=== PATIENT | female | born 1950 | race Caucasian/White ===

== ENCOUNTER 2023-01-17 14:56 | Emergency (ER) | payer MEDICARE, SELFPAY ==
[2023-01-17 15:06] VITALS: BP 165/105; PULSE 87; RESP 18; TEMP 37.2; O2SAT 94; BMI 23.2
--- NOTE | 2023-01-17 15:35 | ED_ITS ---
HPI - General Adult General Chief complaint: Hypertension Stated complaint: high bp, stroke on sunday Time Seen by Provider: 01/17/23 15:13 History of Present Illness HPI narrative: Patient is a 69 year white female was just released from [place] ischemic stroke at [facility] several days ago. She was noted to have quite a bit elevated blood pressure, she was noted today to have elevated blood pressure by the nurse that is doing home care for her. Appropriately she was concerned and sent her to the ER. The patient has had no symptoms in fact her left arm is improving markedly as is her facial weakness she had a little bit of left leg infected but mostly with her hand and arm and she is able to move her hand fairly well. She quit smoking 15 years ago has they have doubled her cholesterol medication, and she did have elevated blood pressure during her hospital stay. She is having no symptoms at present and her stroke symptoms were resolving. She does have a home blood pressure monitor Related Data Home Medications Medication Instructions Recorded Confirmed atorvastatin 40 mg tablet 40 mg PO DAILY 01/17/23 01/17/23 Allergies Allergy/AdvReac Type Severity Reaction Status Date / Time No Known Drug Allergies Allergy Verified 01/17/23 15:06 Review of Systems Status of ROS: Reports: 6 or more systems reviewed and unremarkable except as noted in History and below PFSH PFSH Social History Smoking Status: Unknown if ever smoked Exam Narrative: Exam Narrative: Objective: Blood pressure 165/105. The patient reports she has had her blood pressure monitor checked at home, she tends to have some white coat hypertension. Her blood pressures were similar at home with the nurses today. She does report yesterday however her own blood pressure monitor was 110 systolic. HEENT is unremarkable other than just slight left-sided facial weakness Left upper extremity shows some mild contracture of the hand but it is it opens pretty fully, much better than it was, she has got some ecchymosis from an IV o elaine the dorsum of the hand. She has good lower extremity strength and range of motion. Pulses regular Patient did have an implantable youth nutritional monitor placed to check for transient arrhythmia, she has been on aspirin and atorvastatin Const: Vital Signs, click to edit/add: Vital Signs - 24 hr 01/17/23 15:06 Temperature 98.9 F Pulse Rate [Pulse Oximeter] 87 Respiratory Rate 18 Blood Pressure [Le ft Upper Arm] 165/105 H Pulse Oximetry 94 Oxygen Delivery Me thod Room Air Course Vital Signs Vital signs: Initial Vital Signs Temperature 98.9 F 01/17/23 15:06 Temperature Source Temporal Artery Scan 01/17/23 15:06 Pulse Rate 87 01/17/23 15:06 Respiratory Rate 18 01/17/23 15:06 Blood Pressure 165/105 H 01/17/23 15:06 Blood Pressure Mean 125 H 01/17/23 15:06 Pulse Oximetry 94 01/17/23 15:06 Oxygen Delivery Method Room Air 01/17/23 15:06 Vital Signs Temperature 98.9 F 01/17/23 15:06 Pulse Rate 87 01/17/23 15:06 Respiratory Rate 18 01/17/23 15:06 Blood Pressure 165/105 H 01/17/23 15:06 Pulse Oximetry 94 01/17/23 15:06 Oxygen Delivery Method Room Air 01/17/23 15:06 Temperature 98.9 F 01/17/23 15:06 Pulse Rate 87 01/17/23 15:06 Respiratory Rate 18 01/17/23 15:06 Blood Pressure 165/105 H 01/17/23 15:06 Pulse Oximetry 94 01/17/23 15:06 Oxygen Delivery Method Room Air 01/17/23 15:06 Medical Decision Making MDM Narrative Medical decision making narrative: Patient is a 69-year-old female presents after an ischemic stroke several days, given the proximity of the stroke I would be careful not to lower her blood pressure too much I think observing it and monitoring over the next couple of days is appropriate, I think also she can continue to monitor home and then follow up with her doctor in the next 2-3 days for reassessment and discussion of what her blood pressure goal should be. At this point I do not think lowering a tube much post stroke would be helpful. She can continue her risk factor management. Would recommend continued twice a day blood pressure monitoring and then see her doctor in 2-3 days. Return if at any time her blood pressure gets systolic over 200 or she has any symptoms. Discharge Plan Discharge Clinical Impression: Ischemic cerebrovascular accident (CVA) Patient Disposition: Home w/ Parent or Adult Condition: Stable Additional Instructions: Continue to monitor blood pressure 2 times a day, follow up with regular doctor in 2-3 days. Discuss ongoing blood pressure goal. Continue home medications, return to ED problems or concerns or if systolic blood pressure persistently above 200. Activity Level: Light activity Discharge Diet: Low Fat/Low Cholesterol Prescriptions: No Action atorvastatin 40 mg tablet 40 mg PO DAILY Stand Alone Forms: [employer] Info Instructions
== END 2023-01-17 15:47 | disposition home or self-care (01) ==
PROVIDERS: Emergency Provider Family Medicine; PCP Neurological Surgery
DX: I10 Essential (primary) hypertension (principal); Z86.73 Personal history of transient ischemic attack (TIA), and cerebral infarction without residual deficits
CPT/HCPCS: 99283

== ENCOUNTER 2023-02-23 15:23 | Emergency (ER) | payer MEDICARE, SELFPAY ==
[2023-02-23 15:34] VITALS: BP 198/114; PULSE 81; RESP 18; TEMP 36.6; O2SAT 90; BMI 25.7
--- NOTE | 2023-02-23 16:13 | ED_ITS ---
History of Present Illness General Date Seen: 02/23/23 Chief Complaint: Epistaxis/Nosebleed Stated Complaint: Nose Bleed Time Seen by Provider: 02/23/23 15:42 Source: patient, family and RN notes reviewed Mode of arrival: ambulatory Limitations: no limitations History of Present Illness HPI Narrative: Patient was presenting to the ER accompanied by her daughter with epistasis. The daughter came out of the room as I was in the doctor's office yelling that somebody need to get in there immediately. Please see my clinical course below. Patient believes she has bleeding from the left side. It started today again. On father's Day in February she was in [facility] and states they had to cauterize it, they put a packing that eventually cauterized at per the daughter's report. She was back at her doctor's office today for visit, her hemoglobin was low from all the bleeding reportedly. She did have a stroke right before mother's Day and has been placed on an 81 mg aspirin. She is on no blood thinners. No trauma. Her blood pressure was high on arrival, her daughter states that she has labile blood pressures. She has not been started on blood pressure meds per daughter as it is labile, has significant white coat hypertension. Location: Yes left naris Duration: Yes constant Pertinent past history: Yes history of previous nose bleed Context: Yes history of previous nose bleed and Yes aspirin use Treatment prior to arrival: Yes nose pinching and Yes head leaning forward Related Data Home Medications Medication Instructions Recorded Confirmed atorvastatin 40 mg tablet 40 mg PO DAILY 01/17/23 02/23/23 albuterol sulfate 90 mcg/actuation inhalation 02/23/23 aerosol inhaler aspirin 81 mg tablet,delayed 81 mg PO DAILY 02/23/23 02/23/23 release (Adult Low Dose Aspirin) famotidine 20 mg tablet 20 mg PO Q12H 02/23/23 02/23/23 fluticasone fur. 100 mcg-umeclid 1 inh inhalation DAILY 02/23/23 02/23/23 62.5 mcg-vilant 25 mcg inhalat.powder (Trelegy Ellipta) gabapentin 600 mg tablet 600 mg PO 3XD 02/23/23 02/23/23 hydrocodone 5 mg-acetaminophen 325 1 tab PO DAILY PRN 02/23/23 02/23/23 mg tablet trazodone 50 mg tablet 50 mg PO QPM 02/23/23 02/23/23 Allergies Allergy/AdvReac Type Severity Reaction Status Date / Time No Known Drug Allergies Allergy Verified 01/17/23 15:06 Review of Systems Narrative: As per HPI PFSH [facility] Social History Smoking Status: Unknown if ever smoked Exam Const: Vital Signs, click to edit/add: Vital Signs - 24 hr 02/23/23 15:34 Temperature 97.9 F Pulse Rate [Pulse Oximeter] 81 Respiratory Rate 18 Blood Pressure [Le ft Upper Arm] 198/114 H Pulse Oximetry 90 Oxygen Delivery Me thod Room Air Bleeding left nares. Please see commentary in the clinical course. Documenting provider has reviewed patient's vital signs: yes Course Course Hospital Course: Came to patient's room immediately 1 daughter came out was yelling. Patient had a nose clip on, was attempting to cough up clot and I think was having difficulty breathing with that. Once [place] into the room I stayed with the patient and working with her and attempt to stop the nose bleed. When I removed the nasal clamp, could see active bleeding coming more posterior from the left side, is not on the anterior septum. Was flowing further back, could not see a definite site that I would be able to reach anyway. Placed a medium rhino rocket in the left side, quickly filled with blood and shortly after that started dripping and flowing around this. It was more than just drippage from a saturated it packing. She was continuing to cough up some clots or spit up clots at that point. The bleeding when it went into her mouth made her panic. I was working with her to try to settle her down and reassure her. I tried some oxymetazoline spray and then a Merocel packing. Same thing happened where she quickly started bleeding through this. I attempted to do the 7.5 cm rapid rhino with anterior posterior chambers and could not feed this into her nasal cavity. It would absolutely not go far enough back. Then took a 5.5 cm rapid rhino and placed in left side, feel the chamber with just about 4 mL which is what she would tolerate. Called our ENT but he is unavailable to come for cauterization of this, requested transfer. Daughter later came out stating she was bleeding across the other in naris now on the right side. Went in in indeed she was trickling blood out the right side. Placed a 5 not other 5.5 cm rapid rhino on the right side, threaded it as far back as I could. Was only able to place about 3 mL in before she was intolerant. She had some mild dripping from the left side but certainly slowed the bleeding down. They were requesting transfer to [facility]. Spoke with Dr. Hook at [facility] in the ER. The certainly are busy but he does agree to accept the patient in transfer. I called the 1 call at 4:12 p.m., Dr. Hook promptly called back at 4:22 p.m. I am having nursing staff place an IV, will get a basic metabolic panel and CBC. I do not feel comfortable giving her tranexamic acid given that she has just had a recent stroke and the fact that I do have some control of hemostasis with the bilateral packing in. Note the entirety of patient's time in the ED [place] was either in attendance in her room, contacting specialist. The 1 time I sat down to contact [facility] for transfer, daughter was requesting assistance back in there. Note there was going to be a delay in ambulance by about 30-45 minutes due to other patient transfers, daughter was unwilling to wait, did request to take her mom by private vehicle. Requested that she wait for patient's safety purposes and possible active bleeding that could ensue again. They signed refusal of transport, against medical advice. I am 100% sure that this daughter will proceed to [facility] but do feel that ambulance transfer would have been the safest route even with delay. Vital Signs Vital signs: Initial Vital Signs Temperature 97.9 F 02/23/23 15:34 Temperature Source Temporal Artery Scan 02/23/23 15:34 Pulse Rate 81 02/23/23 15:34 Respiratory Rate 18 02/23/23 15:34 Blood Pressure 198/114 H 02/23/23 15:34 Blood Pressure Mean 142 H 02/23/23 15:34 Pulse Oximetry 90 02/23/23 15:34 Oxygen Delivery Method Room Air 02/23/23 15:34 Vital Signs Temperature 97.9 F 02/23/23 15:34 Pulse Rate 81 02/23/23 15:34 Respiratory Rate 18 02/23/23 15:34 Blood Pressure 198/114 H 02/23/23 15:34 Pulse Oximetry 90 02/23/23 15:34 Oxygen Delivery Method Room Air 02/23/23 15:34 Temperature 97.9 F 02/23/23 15:34 Pulse Rate 81 02/23/23 15:34 Respiratory Rate 18 02/23/23 15:34 Blood Pressure 198/114 H 02/23/23 15:34 Pulse Oximetry 90 02/23/23 15:34 Oxygen Delivery Method Room Air 02/23/23 15:34 MDM - Epistaxis Lab Data Attestation: I reviewed the patient's lab results. Lab results narrative: No anemia noted here but do not have comparison values of recent hemoglobins for her. Labs: Lab Results 02/23/23 Range/Units 16:15 WBC 5.38 (4.50-11.00) K/uL RBC 4.51 (4.00-5.20) m/uL Hgb 13.1 (12.0-16.0) gm/dL Hct 41.4 (33.0-51.0) % MCV 92 (80-100) fL MCH 29 (26-34) pg MCHC 32 (32-36) gm/dL RDW Coeff of Sameer 13.5 (11.5-15.5) % Plt Count 344 (140-440) K/uL Neut % (Auto) 69.9 (42.0-72.0) % Lymph % (Auto) 22.3 (20-44) % Bryan % (Auto) 5.4 (0.0-11.0) % Eos % (Auto) 2.0 (0.0-7.0) % Baso % (Auto) 0.2 (0.0-3.0) % Neut # (Auto) 3.76 (1.7-7.0) K/uL Lymph # (Auto) 1.20 (0.90-2.90) K/uL Bryan # (Auto) 0.30 (0.00-0.90) K/UL Eos # (Auto) 0.11 (0.00-0.50) K/uL Baso # (Auto) 0.01 (0.00-0.30) K/uL Sodium 139 (135-149) mmol/L Potassium 4.4 (3.6-5.1) mmol/L Chloride 99 (96-114) mmol/L Carbon Dioxide 28 (20-32) mmol/L BUN 17 (7-30) mg/dL Creatinine 0.8 (0.5-1.5) mg/dL Estimated Creat Clear 40.83 Estimated GFR 77 ml/min Glucose 97 (60-115) mg/dL Calcium 10.1 (8.4-10.6) mg/dL Discharge Plan Discharge Clinical Impression: Epistaxis Patient Disposition: Xf Acute [facility] Discharge Location: [facility] Condition: Improved
[2023-02-23 16:33] LABS: Basophils Absolute Auto 0.01 K/uL (0.00-0.30); Basophils Percent Auto 0.2 % (0.0-3.0); Eosinophils Absolute Auto 0.11 K/uL (0.00-0.50); Hematocrit 41.4 % (33.0-51.0); Hemoglobin* 13.1 gm/dL (12.0-16.0); Immature Granulocytes Abs Auto 0.01 K/uL (0.00-0.30); Immature Granulocytes Pct Auto 0.2 %; Lymphocytes Percent Auto 22.3 % (20-44); Mean Corpuscular HGB Conc 32 gm/dL (32-36); Mean Corpuscular Hemoglobin 29 pg (26-34); Mean Corpuscular Volume 92 fL (80-100); Monocytes Percent Auto 5.4 % (0.0-11.0); Neutrophils Absolute Auto 3.76 K/uL (1.7-7.0); Neutrophils Percent Auto 69.9 % (42.0-72.0); Platelet Count* 344 K/uL (140-440); RDW Coefficient of Variation % 13.5 % (11.5-15.5); Red Blood Count 4.51 m/uL (4.00-5.20); White Blood Count* 5.38 K/uL (4.50-11.00)
[2023-02-23] MEDS: OXYMETAZOLINE (AFRIN) SOAK 1 EACH TOPICAL (16:33)
[2023-02-23 16:54] LABS: Chloride* 99 mmol/L (96-114); Sodium* 139 mmol/L (135-149)
[2023-02-23 16:55] LABS: Potassium* 4.4 mmol/L (3.6-5.1)
[2023-02-23 16:57] LABS: Carbon Dioxide* 28 mmol/L (20-32); Creatinine* 0.8 mg/dL (0.5-1.5); Est. Creatinine Clearance* 40.83; Estimated Glomerular Filt Rate 77 ml/min; Slide Review Reflex No
[2023-02-23 16:58] LABS: Blood Urea Nitrogen* 17 mg/dL (7-30); Calcium* 10.1 mg/dL (8.4-10.6); Glucose* 97 mg/dL (60-115)
--- NOTE | 2023-02-23 17:01 | ED.NURSE ---
pt and pt's daughter declined waiting 30-45 minutes for EMS. signed out AMA. report to PRISCA Paredes at [facility]
--- NOTE | 2023-02-23 17:04 | ED.NURSE ---
IV left in place at transfer
== END 2023-02-23 17:04 | disposition short-term general hospital (02) ==
PROVIDERS: Emergency Provider Family Medicine; PCP Neurological Surgery
DX: R04.0 Epistaxis (principal)
CPT/HCPCS: 30901; 36415; 80048; 85025; 99284

== ENCOUNTER 2024-12-28 12:33 | Emergency (ER) | payer MEDICARE, SELFPAY ==
--- OUTSIDE RECORDS SUMMARY | 2024-12-28 12:34 | XMS_ITS | Clinical Summary ---
Author Organization [employer] [facility] Address [address] [place] [id number] Care Team Providers Care Watershed Coordinator Name Role Phone Yessi Bernal Primary Care Provider [phone] Nancie Myers PharmD Unavailable [phone] Cary Kinsey MD Unavailable [phone] [facility] Unavailable [phone] Allergies Active Allergy Reactions Criticality Noted Date Comments Doxycycline Itching 09/24/2023 Vancomycin GI Upset 02/07/2024 Stomach cramping, severe nausea Medications calcium carbonate (CALCIUM 600) 600 mg calcium (1,500 mg) tabletIndications :Osteopenia of multiple sites Take 600 mg by mouth two times daily with meals. 60 tablet 11 019 Active cholecalciferol (VITAMIN D-3) 2,000 unit capsuleIndication s:Osteopenia of multiple sites Take 1 capsule by mouth once daily. 0 019 Active ascorbic acid, vitamin C, (Vitamin C) 500 mg tablet Take 1 Tablet (500 mg) by mouth once daily. 0 023 Active acetaminophen (TYLENOL EXTRA STRGTH) 500 mg tablet Take 1,000 mg by mouth every 6 hours if needed for Pain (headache). Max acetaminophen dose: 4000mg in 24 hrs. 500 Tablet 023 Active oxygen-air delivery systems (HOME OXYGEN)Indication s:Chronic respiratory failure with hypoxia (HC),Stage 2 moderate COPD by GOLD classification (HC) Oxygen concentrator for portable use. Liters per minute: 2L per nasal cannula. Frequency of use: With activity;. Length of need: 99 Months. 024 Active NebulizerIndicati ons:COPD exacerbation (HC) Nebulizer, disposable neb kit x 4, reuseable neb kit x 1, mask x 1, filters x 1. Frequency of use: daily; Medication: DuoNeb length of need: 3 months 1 Each 024 Active nebulizer and compressor ([facility] PulmoNeb LT Comp-Neb) Nebulizer, disposable neb kit x 4, reuseable neb kit x 1, mask x 1, filters x 1. 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 Liters per minute: 2 LPM per nasal cannula. Frequency of use: Continuous with portability.;. Length of need: 99 Months. 1 Each 024 Active albuterol HFA (PRO-AIR; VENTOLIN; PROVENTIL) 90 mcg/actuation inhalerIndication s:Stage 2 moderate COPD by GOLD classification (HC) Inhale 2 Puffs by mouth every 4 hours if needed for Shortness Of Breath. 3 Each 024 Active traZODone (DESYREL) 50 mg tablet Take 50 mg by mouth at bedtime if needed. Active oxygen-air delivery systems (HOME OXYGEN)Indication s:Chronic respiratory failure with hypoxia and hypercapnia (HC) Oxygen for home use. Liters per minute: 3 per nasal cannula. Frequency of use: Continuous with portability.;. Length of need: 6 Months. 1 Each 024 Active umeclidinium-vito nteroL (Anoro Ellipta) 62.5-25 mcg/actuation inhalerIndication s:COPD exacerbation (HC) Inhale 1 Puff by mouth once daily. Discard inhaler 6 weeks after opening or when the counter reads '0' (after all blisters have been used), whichever comes first. 60 Each 024 Active diclofenac topical (Voltaren) 1 % gelIndications:Ac salamatof exacerbation of chronic low back pain,Lumbar radiculopathy,Chr onic bilateral low back pain without sciatica Apply 2 g topically to affected area(s) 4 times daily if needed (back pain). 300 g 3 024 Active pantoprazole (PROTONIX) 40 mg delayed-release tabletIndications :Gastroesophageal reflux disease, unspecified whether esophagitis present Take 1 Tablet (40 mg) by mouth once daily before a meal. 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 +Takes on Fridays+ Take on empty stomach with full glass of water. Do not lie down for 1 hr. 025 Active dextromethorphan- guaiFENesin (ROBITUSSIN DM) (5-50 mg/5 mL) liquidIndications :Cough, unspecified type Take 10 mL by mouth every 4 hours if needed for Cough 2nd choice. 118 mL 09/11/19 25 9:42 AM FUNERAL DIRECTOR/EMBALMER/OWNER 025 Active famotidine (PEPCID) 20 mg tabletIndications :Gastroesophageal reflux disease with esophagitis without hemorrhage Take 1 Tablet (20 mg) by mouth two times daily. 180 Tablet 3 025 Active amLODIPine (NORVASC) 2.5 mg tabletIndications :Essential hypertension Take 1 Tablet (2.5 mg) by mouth once daily. 100 Tablet 3 025 Active azithromycin (ZITHROMAX) 250 mg tabletIndications :Chronic obstructive pulmonary disease, unspecified COPD type (HC) Take 1 Tablet (250 mg) by mouth every 24 hours. 90 Tablet 3 025 Active HYDROcodone-aceta minophen (5-325 mg/tablet)Indicat ions:Chronic bilateral low back pain with left-sided sciatica Take 1 Tablet by mouth once daily if needed for Pain. Max acetaminophen dose: 4000 mg in 24 hrs. 20 Tablet 025 Active atorvastatin 40 mg tabletIndications :Cerebrovascular accident (CVA), unspecified mechanism (HC) TAKE ONE TABLET BY MOUTH AT BEDTIME 90 Tablet 2 04/01/2 025 Active apixaban 5 mg tabletIndications :prevent thromboembolism in AF Take 1 Tablet (5 mg) by mouth two times daily. 180 Tablet 3 Active gabapentin 600 mg tabletIndications :Lumbar back pain with radiculopathy affecting left lower extremity Take 1 Tablet (600 mg) by mouth three times daily. 300 Tablet 3 Active sotaloL 80 mg tabletIndications :Paroxysmal atrial fibrillation (HC) Take 1 Tablet (80 mg) by mouth every 24 hours. 60 Tablet Active loratadine (Claritin) 10 mg chewable tabletIndications :Allergy, sequela Chew 1 Tablet (10 mg) by mouth once daily. 90 Tablet 3 Active hydrocortisone 1 % creamIndications: Allergy, sequela Apply topically to affected area(s) two times daily. 30 g 1 Active apixaban (ELIQUIS) 5 mg tabletIndications :prevent thromboembolism in AF Take 1 Tablet (5 mg) by mouth two times daily. 180 Tablet 3 024 2024 Discontinued(R eorder (E-cancel not sent)) atorvastatin (LIPITOR) 40 mg tabletIndications :Cerebrovascular accident (CVA), unspecified mechanism (HC) Take 1 Tablet (40 mg) by mouth at bedtime. 90 Tablet 3 024 2024 Discontinued sotaloL (BETAPACE) 80 mg tabletIndications :Paroxysmal atrial fibrillation (HC) Take 1 Tablet (80 mg) by mouth every 24 hours. 60 Tablet 025 2024 Discontinued(R eorder (E-cancel not sent)) gabapentin (NEURONTIN) 600 mg tabletIndications :Lumbar back pain with radiculopathy affecting left lower extremity Take 1 Tablet (600 mg) by mouth three times daily. 270 Tablet 1 025 2024 Discontinued(R eorder (E-cancel not sent)) Active Problems Problem Noted Date Diagnosed Date ACP (advance care planning) 09/08/2024 Right upper lobe pneumonia 09/08/2024 Sepsis 09/08/2024 Septic shock 08/20/2024 Pneumonia due to infectious organism 08/20/2024 Acute respiratory insufficiency 08/20/2024 History of CVA (cerebrovascular accident) 2023 Pneumonia due to infectious organism 01/30/2024 Chronic respiratory failure with hypoxia and hyp ercapnia 12/06/2023 Paroxysmal atrial fibrillation 11/08/2023 Acute on chronic respiratory failure with hypoxia and hypercapnia 09/21/2023 Atrial fibrillation with rapid ventricular respo nse 09/17/2023 COVID-19 09/17/2023 Epistaxis 02/24/2023 White coat syndrome without hypertension 023 CVA (cerebral vascular accident) 01/20/2023 Pulmonary nodule 01/19/2023 History of CVA 01/13/2023 Osteopenia of multiple sites 06/05/2018 Overview (07/02/2024): DEXA 05/21/18: T-scores AP: 0.7, LFN -0.9, RFN -1.3. FRAX 9.6%. DEXA 12/07/20: T-scores AP: 0.3, Total hip -0.8, RFN -1.7. FRAX 11.2%. DEXA 06/16/24: T-scores AP: +1.2, LFN -1.4, RFN -2.2. FRAX 26.2, 16.6% Recommend Fosamax. Stage 2 moderate COPD by GOLD classification 09/2017 Lumbar radiculopathy 09/20/2017 Issue of repeat prescription 09/20/2017 Overview (04/01/2018): Left lower extremity radiculopathy and osteoarthritis of lumbar spine CSA 09/2017. [place] 5/325 09/04 tab three times daily as needed for pain #20/month [employer]. Yessi Bernal, .................... 09/20/2017 7:47 AM CKD (chronic kidney disease) stage 3, GFR 30-59 ml/min 01/14/2017 Acute exacerbation of chronic low back pain 08/03 Incidental pulmonary nodule, > 3mm and < 8mm-rig ht side 08/04/2014 AIN (acute interstitial nephritis) 05/20/2012 Essential hypertension 05/19/2011 COPD exacerbation 01/13/2011 CALEB 2009 AHI- 30 positional 02/22/2009 Bulging disc 02/16/2009 Personal history of tobacco use, presenting hazards to health 05/08/2007 Migraine, unspecified, witho ut mention of intractable migraine without mention of status migrainosus 05/08/2007 LOW BACK PAIN, chronic 08/17/2006 CORNEAL ABRASION--R 12/29/2004 HYPERCHOLESTEROLEMIA, PURE 06/20/2002 GERD 06/02/2002 Overview (02/02/2017): EGD 02/2017 large hiatal hernia, biopsy normal HEADACHE 12/18/2000 Resolved Problems Problem Noted Date Diagnosed Date Resolved Date Back muscle spasm 08/19/2016 04/01/2018 MRSA infection 05/25/2015 06/28/2015 ARF (acute renal failure) 05/16/2012 Overview (05/16/2012): 05/15/12 S/P thoracentesis 05/10/2012 04/01/2018 Pneumonia, MSSA , LOG COOKER 05/10/20122017 Elevated blood pressure read ing without diagnosis of hypertension 10/28/2008 05/19/2011 Personal history of tobacco use, presenting hazards to health 05/23/2007 05/30/2010 Pneumonia, organism unspecified(486) 05/08/2007 04/01/2018 Other and unspecified hyperlipidemia 05/08/2007 02/24/2023 Tobacco use disorder 08/17/2006 007 MIGRAINE 03/19/2001 05/12/2015 PAIN, ABDOMINAL, EPIGASTRIC 10/22/2004 Encounters Date Type Department Care Team Description 12/25/2024 4:00 PM CDT Office Visit [facility] [address] [place] [address] Cary Kinsey MD Follow Up (in person/follow-up per Dr. Kinsey) 12/25/2024 Travel 12/19/2024 Telephone [facility] [address] [place] [address] Yessi Bernal DO Referral (DX review) 12/17/2024 Patient Outreach [place] [address] [place] [address] Yessi Bernal, Serious Illness Conversation 12/11/2024 3:00 PM CDT [address] [place] [address] Yessi Bernal, Medication Management; Serious Illness Conversation 12/11/2024 Travel 12/01/2024 [address] [place] [address] Yessi Bernal, Refill Request (Atorvastatin) 11/27/2024 Telephone [place] [address] [place] [address] Yessi Bernal, Appointment 11/24/2024 [address] [place] [address] Yessi Bernal, Refill Request 11/17/2024 Telephone [place] [address] [place] [address] Yessi Bernal DO Refill Request (GABAPENTIN) 11/13/2024 Telephone [place] [address] [place] [address] Yessi Bernal DO Medication Management (gabapentin (NEURONTIN) 600 mg tablet) 11/10/2024 Telephone [place] [address] [place] [address] Yessi Bernal, Questions (Returning call) 11/06/2024 [address] [place] [address] Yessi Bernal DO Refill Request (Gabapentin/); Error-please disregard 11/05/2024 1:00 PM FUNERAL DIRECTOR/EMBALMER/OWNER Office Visit [facility] [address] [place] [phone] Ralph Huerta MD Follow Up (COPD) 11/05/2024 Travel 11/04/2024 Refill [facility] [address] [place] [phone] Cary Kinsey MD Refill Request (Sotalol) 11/03/2024 Telephone [facility] [place] [address] [place] [address] Yessi Bernal, Refill Request (gabapentin (NEURONTIN) 600 mg tablet) 10/30/2024 Refill [facility] [place] [address] [place] [address] Yessi Bernal DO Refill Request (Amlodipine/) 10/28/2024 Procedure Only [facility] [address] [place] [phone] Device Check (Remote Medtronic Pacemaker E... 10/27/2024 Refill [facility] [place] [address] [place] [address] Yessi Bernal DO Refill Request (Gabapentin) 10/23/2024 Refill [facility] [place] [address] [place] [address] Yessi Bernal DO Refill Request (HYDROcodone-acetami nophen (5-325 mg/tablet)) 10/22/2024 10:30 AM FUNERAL DIRECTOR/EMBALMER/OWNER Ancillary Procedure [facility] [address] [place] [phone] 10/22/2024 Travel 10/02/2024 Telephone [facility] [place] [address] [place] [address] Yessi Bernal DO Questions 09/30/2024 Telephone [facility] [place] [address] [facility] [place] [address] Yessi Bernla, Medication Management (amplodipine) 09/29/2024 Refill [facility] [place] [address] [facility] [place] [address] Yessi Bernal, Refill Request (Amlodipine) from Last 3 Months Immunizations Immunization Administration Dates Next Due AMB INFLUENZA IIV3 (AGE 65+ YRS) PF (Flu Clinic Only) 06/01/2017 COVID-19 VACCINE SPIKEVAX (M ODERNA 50MCG/0.5ML) 12YO+ PFS 12/11/2024 COVID-19 vaccine (Moderna 50 mcg/0.5mL) 12YO+ BIVALENT PF, MDV 06/05/2022 COVID-19 vaccine (Moderna Miguel jona 50mcg/0.25mL) PF, MDV 11/14/2021 INFLUENZA, IIV3 PF (AGE >= 6 MO) 05/19/2011 Influenza, High-dose Inactivated 06/07/2024,0 05/2015,05/25/2014 Influenza, High-dose Quadriv alent Inactivated 04/09/2023 Influenza, IIV3 (Age >=3 years) 05/10/20 12,05/19/2011,06/25/2007,08/17,07/13/2005,09/01/2003 Influenza, Inactivated AIIV4 (Age 65+ Years) Preserv Free 04/09/2023,06/05/2022,06/03/2021,05/19 Influenza, Inactivated IIV3 (Age 65+ Years) Preserv Free 05/22/2019,05/25/2018 Pneumococcal Poly,23-Valent (Pneumovax) 04/01/2018,05/10/2012,08/12/2007,05/09 Pneumococcal conj 13-Valent (Prevnar 13) 01/08/2017 RSV, Bivalent Vaccine Recons tituted (Abrysvo 120MCG/0.5mL) 06/23/2023 Tdap 04/09/2023,05/10/2012 Zoster (Shingrix-RZV, recombinant) 12/25/2018, Family History Medical History Relation Name Comments Cancer-breast Daughter bilateral mast ectomy Heart Disease Father CAD Relation Name Status Comments Daughter Father Mother Social History Tobacco Use Types Packs/Day Years Used Date Smoking Tobacco: Former Cigarettes 1 20 0 02/05/1987 - 02/05/2007 Passive Smoke Exposure: Never Smokeless Tobacco: Never Tobacco Cessation:Counseling Given: Not Answered Alcohol Use Standard Drinks/Week Comments Not Currently 0 (1 standard drink = 0.6 oz pur e alcohol) Alcoholic Drinks/day: 0 PHQ-2 Answer Date Recorded PHQ-2 TOTAL SCORE 0 06/17/2024 Social Connections Answer Date Recorded Do you often feel lonely or isolated from those around you? 0 08/21/2024 Financial Resource Strain Answer Date R ecorded Difficulty of Paying Living Expenses 3 08/23/2024 Difficulty of Paying Living Expenses Not on file 08/23/2024 Food Insecurity Answer Date Recorded Do you worry your food will run out before you are able to buy more? 1 08/21/2024 Transportation Needs Answer Date Record ed Does lack of transportation keep you from medica l appointments? 1 08/21/2024 Does lack of transportation keep you from work, meetings or getting things that you need? 1 08/21/2024 Housing Stability Answer Date Recorded What is your housing situation today? 1 08/21/2024 Interpersonal Safety Answer Date Record ed Are you being hit, kicked, p ushed or yelled at (see row info)? No 09/08/2024 Interpersonal Safety Abuse 12 - 18 Not on file 09/08/2024 Interpersonal Safety Ambulatory Vulnerability No t on file 09/08/2024 Utilities Answer Date Recorded Do you have trouble paying f or utilities (for example, heat, electricity, water, phone)? 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 Gender Identity Not on file Sexual Orientation Not on file Obstetrics History Para Term AB IAB SAB Ectopic Multiple Livin g Live Births 4 3 2 0 1 0 1 0 0 2 Date Outcome GA Total Labor Labor/2nd/3rd Weight Sex Type Anes PTL Analisa A1 A5 Name Clin SAB Term Term Para Last Filed Vital Signs Vital Sign Reading Time Taken Comments Blood Pressure 128/86 12/25/2024 4:04 PM CDT Pulse 80 12/25/2024 4:04 PM CDT Temperature 36.4 C (97.5 F) 12/11/2024 3:00 PM CDT Respiratory Rate 18 12/25/2024 4:04 PM CDT Oxygen Saturation 96% 12/25/2024 4:04 PM CDT Inhaled Oxygen Concentration - - Weight 58.1 kg (128 lb) 12/25/2024 4:04 PM CDT Height 154.9 cm (5' 1) 12/25/2024 4:04 PM CDT Body Mass Index 24.19 12/25/2024 4:04 PM CDT Plan of Treatment Upcoming Encounters Date Type Department Care Team (Late st Contact Info) Description 03/02/2025 3:00 PM CDT Office Visit [facility] [address] [place] [phone] Ralph Huerta MD [address] [facility] [address] [facility] [address] [place], [place] [phone] 03/05/2025 Procedure Only [facility] [address] [place] [address] Health Maintenance Due Date Last Done Comments Medicare Wellness for age 65+ 06/07/2025, 06/06/2023, 06/05/2022, Additional history exists Depression screening for age 12+ 06/17/2025 06/17/2024, 06/10/2024, 06/06/2024, Additional history exists CT Colonography for age 45-75 07/04/2025 (Verified in Care Everywhere or Patient Record) BMI (ht and wt on same day) for age 18+ 12/25/2025 12/25/2024, 12/11/2024, 11/05/2024, Additional history exists Lipids for age 45-75 12/11/2029 12/11/2024, 11/11/2023, 11/10/2023, Additional history exists Tetanus booster 04/09/2033 04/09/2023, 05/10/2012 Hepatitis C screening for ag e 18-79 Completed 05/12/2015 Pneumococcal series for age 50+ Completed 04/01/2018, 01/08/2017, 05/10/2012, Additional history exists Zoster (shingles) series for age 50+ Completed 12/25/2018, 05/25/2018 Tdap Completed 04/09/2023, 05/10/2012 RSV vaccine for adults or Completed 06/23/2023 Influenza Vaccine Completed 06/07/2024, , 06/05/2022, Additional history exists DEXA/DXA scan for age 65+ Completed 2023, 12/07/2020, 05/21/2018, Additional history exists COVID-19 vaccine series Completed 12/12/19, 06/07/2024, 04/09/2023, Additional history exists Procedures Procedure Name Priority Date/Time Associated Diagnosis Comments SCAN-ELECTROCARDIOG BRAYAN EKG 12/25/2024 12:00 AM CDT COMPLIANCE DRUG ANALYSIS Routine 12/11/2024 4:22 PM CDT Lumbar radiculopathy Therapeutic drug monitoring Chronic left-sided low back pain with left-sided sciatica LIPID PANEL W REFLEX MEASURED LDL Routine 12/11/2024 3:58 PM CDT History of CVA (cerebrovascular accident) Other specified abnormal findings of blood chemistry COMP METABOLIC PANEL Routine 12/11/2024 3:58 PM CDT Essential hypertension Stage 3a chronic kidney disease (HC) CT CHEST WO Routine 10/22/2024 10:12 AM FUNERAL DIRECTOR/EMBALMER/OWNER Aspiration pneumonia of right upper lobe, unspecified aspiration pneumonia type (HC) XR DXA BONE DENSITY 2 SITES AXIAL AND 1 SITE PERIPHERAL Routine 06/16/2024 3:44 PM CDT Osteopenia of multiple sites ANTI HCV Routine 05/12/2015 9:13 AM CDT Need for hepatitis C screening test from Last 3 Months or Most Recently Relevant to Health Maintenance Results * SCAN-ELECTROCARDIOGRAM EKG (12/25/2024 12:00 AM CDT) us Scanner OTHER Final Result * COMPLIANCE DRUG ANALYSIS (12/11/2024 4:22 PM T) 6-MONOACETYL MORPHINE NEG NEG ng/mL 12/18/2024 10:44 AM [facility] AMPHETAMINE URINE NEG <=500 ng/mL 12/18/2024 10:44 AM [facility] BARBITURATE URINE NEG <=200 ng/mL 12/18/2024 10:44 AM [facility] BENZODIAZEPINE URINE NEG <=100 ng/mL 12/18/2024 10:44 AM [facility] BUPRENORPHRINE URINE NEG <=5 ng/mL 12/02 10:44 AM [facility] COCAINE METAB URINE NEG <=300 ng/mL 12/18/2024 10:44 AM [facility] ETHYLGLUCURONIDE URINE NEG <=250 ng/mL 12/18/2024 10:44 AM [facility] FENTANYL URINE NEG <=5 ng/mL 12/18/2024 10:44 AM [facility] METHADONE URINE NEG <=300 ng/mL 12/18/2024 10:44 AM [facility] OPIATES URINE NEG <=300 ng/mL 12/18/2024 10:44 AM [facility] OXYCODONE URINE NEG <=100 ng/mL 12/18/2024 10:44 AM [facility] PROPOXYPHENE URINE NEG <=300 ng/mL 12/18/2024 10:44 AM [facility] THC 50 URINE NEG <=50 ng/mL 12/18/2024 10:44 AM [facility] TRAMADOL NEG <=200 ng/mL 12/18/2024 10:44 AM [facility] PH URINE 6.5 5.0 - 7.0 12/18/2024 10:44 AM [facility] CREAT UR 139 >=20 mg/dL 12/18/2024 10:44 AM [facility] MASS SPECTROMETRY URINE See Below 12/18/2024 10:44 AM CDT [facility] Comment:Acetaminophen, Albut zenaida, Diphenhydramine and Trazodone present. Urine URINE SPECIMEN / Unknown Non-Blood / Unknown 12/11/2024 4:22 PM CDT 12/11/2024 4:22 PM CDT Narrative [facility] - 12/18/2024 10:44 AM CDT Current Outpatient Medications: acetaminophen (TYLENOL EXTRA STRGTH) 500 mg tablet, Take 1,000 mg by mouth every 6 hours if needed for Pain (headache). Max acetaminophen dose: 4000mg in 24 hrs. albuterol HFA (PRO-AIR; VENTOLIN; PROVENTIL) 90 mcg/actuation inhaler, Inhale 2 Puffs by mouth every 4 hours if needed for Shortness Of Breath. alendronate (FOSAMAX) 70 mg tablet, Take 1 Tablet (70 mg) by mouth once a week in the morning. +Takes on Fridays+ Take on empty stomach with full glass of water. Do not lie down for 1 hr. amLODIPine (NORVASC) 2.5 mg tablet, Take 1 Tablet (2.5 mg) by mouth once daily. apixaban (ELIQUIS) 5 mg tablet, Take 1 Tablet (5 mg) by mouth two times daily. ascorbic acid, vitamin C, (Vitamin C) 500 mg tablet, Take 1 Tablet (500 mg) by mouth once daily. atorvastatin 40 mg tablet, TAKE ONE TABLET BY MOUTH AT BEDTIME azithromycin (ZITHROMAX) 250 mg tablet, Take 1 Tablet (250 mg) by mouth every 24 hours. calcium carbonate (CALCIUM 600) 600 mg calcium (1,500 mg) tablet, Take 600 mg by mouth two times daily with meals. cholecalciferol (VITAMIN D-3) 2,000 unit capsule, Take 1 capsule by mouth once daily. dextromethorphan-guaiFENesin (ROBITUSSIN DM) (5-50 mg/5 mL) liquid, Take 10 mL by mouth every 4 hours if needed for Cough 2nd choice. diclofenac topical (Voltaren) 1 % gel, Apply 2 g topically to affected area(s) 4 times daily if needed (back pain). famotidine (PEPCID) 20 mg tablet, Take 1 Tablet (20 mg) by mouth two times daily. gabapentin (NEURONTIN) 600 mg tablet, Take 1 Tablet (600 mg) by mouth three times daily. HYDROcodone-acetaminophen (5-325 mg/tablet), Take 1 Tablet by mouth once daily if needed for Pain. Max acetaminophen dose: 4000 mg in 24 hrs. nebulizer and compressor ([employer] PulmoNeb LT Comp-Neb), Nebulizer, disposable neb kit x 4, reuseable neb kit x 1, mask x 1, filters x 1. ? Frequency of use: daily; ?Medication: DuoNeb length of need: 3 months Nebulizer, Nebulizer, disposable neb kit x 4, reuseable neb kit x 1, mask x 1, filters x 1. Frequency of use: daily; Medication: DuoNeb length of need: 3 months oxygen-air delivery systems (HOME OXYGEN), Oxygen for home use. Liters per minute: 3 per nasal cannula. Frequency of use: Continuous with portability.;. Length of need: 6 Months. oxygen-air delivery systems (HOME OXYGEN), Oxygen for home use Conserving Device. Liters per minute: 2 LPM per nasal cannula. Frequency of use: Continuous with portability.;. Length of need: 99 Months. oxygen-air delivery systems (HOME OXYGEN), Oxygen concentrator for portable use. Liters per minute: 2L per nasal cannula. Frequency of use: With activity;. Length of need: 99 Months. pantoprazole (PROTONIX) 40 mg delayed-release tablet, Take 1 Tablet (40 mg) by mouth once daily before a meal. sotaloL (BETAPACE) 80 mg tablet, Take 1 Tablet (80 mg) by mouth every 24 hours. traZODone (DESYREL) 50 mg tablet, Take 50 mg by mouth at bedtime if needed. umeclidinium-vilanteroL (Anoro Ellipta) 62.5-25 mcg/actuation inhaler, Inhale 1 Puff by mouth once daily. Discard inhaler 6 weeks after opening or when the counter reads '0' (after all blisters have been used), whichever comes first. No current facility-administered medications for this visit. As of 12/11/2024 Release to patient->Immediate Yessi Bernal DO URINE Final Resul t [facility] Chris DRIVER MA[address] CODE [address] [place] [address], [place] * (ABNORMAL) LIPID PANEL W REFLEX MEASURED LDL (12/11/2024 3:58 PM CDT) CHOLESTEROL, TOTAL 153 <200 mg/dL [facility] HDL CHOLESTEROL 50 > OR = 50 mg/dL [facility] TRIGLYCERIDES 150(H) <150 mg/dL [facility] LDL-CHOLESTEROL 78 mg/dL (calc) [facility] Comment: Reference range: <100 Desirable range <100 mg/dL for primary prevention; <70 mg/dL for patients with CHD or diabetic patients with > or = 2 CHD risk factors. LDL-C is now calculated using the Ricardo calculation, which is a validated novel method providing better accuracy than the Friedewald equation in the estimation of LDL-C. Nghia SS et al. FRANCISCO. 2013;310(19): 3611-8155 (http://education.Proximic/faq/OAD646) CHOL/HDLC RATIO 3.1 <5.0 (calc) [facility] NON HDL CHOLESTEROL 103 <130 mg/dL (calc) [facility] Comment: For patients with diabetes plus 1 major ASCVD risk factor, treating to a non-HDL-C goal of <100 mg/dL (LDL-C of <70 mg/dL) is considered a therapeutic option. Blood BLOOD SPECIMEN / Unknown 12/11/2024 3:58 PM CDT 12/11/2024 3:59 PM CDT us Yessi Bernal DO CHEMISTRY Final Resul t [employer] [facility] [address] [place] [address], [place] [phone] [employer] [address] [facility] [address] * (ABNORMAL) COMP METABOLIC PANEL (12/11/2024 3:58 PM CDT) [facility] GLUCOSE 100(H) 65 - 99 mg/dL [facility] Comment: Fasting reference interval For someone without known diabetes, a glucose value between 100 and 125 mg/dL is consistent with prediabetes and should be confirmed with a follow-up test. UREA NITROGEN (BUN) 20 7 - 25 mg/dL [facility] CREATININE 0.94 0.60 - 1.00 mg/dL [facility] EGFR 63 > OR = 60 mL/min/1. 73m2 [facility] BUN/CREATININE RATIO SEE NOTE: 6 - 22 (calc) [facility] Comment: Not Reported: BUN and Creatinine are within reference range. SODIUM 140 135 - 146 mmol/L [facility] POTASSIUM 5.1 3.5 - 5.3 mmol/L [facility] CHLORIDE 103 98 - 110 mmol/L [facility] CARBON DIOXIDE 29 20 - 32 mmol/L [facility] CALCIUM 9.6 8.6 - 10.4 mg/dL [facility] PROTEIN, TOTAL 7.7 6.1 - 8.1 g/dL [facility] ALBUMIN 4.8 3.6 - 5.1 g/dL [facility] GLOBULIN 2.9 1.9 - 3.7 g/dL (calc) [facility] ALBUMIN/GLOBULIN RATIO 1.7 1.0 - 2.5 (calc) [facility] BILIRUBIN, TOTAL 0.4 0.2 - 1.2 mg/dL [facility] ALKALINE PHOSPHATASE 47 37 - 153 U/L [facility] AST 23 10 - 35 U/L [facility] ALT 24 6 - 29 U/L [facility] Blood BLOOD SPECIMEN / Unknown 12/11/2024 3:58 PM CDT 12/11/2024 3:59 PM CDT Yessi Bernal DO CHEMISTRY Final Resul t [employer] [facility] [address] [place] [address], [facility] [address] [place] [address] * CT CHEST WO (10/22/2024 10:12 AM FUNERAL DIRECTOR/EMBALMER/OWNER) Anatomical Region Laterality Modality CHEST, THORAX, HEART Computed To mography 10/22/2024 10:1 2 AM FUNERAL DIRECTOR/EMBALMER/OWNER Impressions 10/22/2024 11:42 AM FUNERAL DIRECTOR/EMBALMER/OWNER 1. Prior scattered irregular infectious/inflammatory opacities predominantly in the right lung have resolved since 09/09/2024, now with some residual areas of reticular scarring. 2. No new acute findings. Narrative 10/22/2024 11:42 AM FUNERAL DIRECTOR/EMBALMER/OWNER For Patients: As a result of the Cures Act, medical imaging exams and procedure reports are released immediately into your electronic medical record. You may view this report before your referring provider. If you have questions, please contact your health care provider. EXAM: CT CHEST WO LOCATION: [facility] DATE: 10/22/2024 INDICATION: Aspiration Pneumonia Of Right Upper Lobe, Unspecified Aspiration Pneumonia Type (hc). COMPARISON: CT chest 09/09/2024, 02/07/2024 reviewed. TECHNIQUE: CT chest without IV contrast. Multiplanar reformats were obtained. Dose reduction techniques were used. CONTRAST: None. FINDINGS: LUNGS AND PLEURA: Background moderate emphysema. Since 09/09/2024, scattered irregular opacities predominantly in the right lung have either resolved or substantially decreased, consistent with improving infectious/inflammatory process. A few scattered reticular opacities remain suggesting areas of scarring. No new acute focal consolidation or focal groundglass opacity. Mild reticular scarring in lung apices. No suspicious pulmonary nodule. No pleural effusion or pneumothorax. MEDIASTINUM/AXILLAE: No adenopathy. No pericardial effusion. Normal variant aberrant right subclavian artery. Left chest cardiac pacemaker. Moderate atherosclerotic calcifications thoracic aorta. CORONARY ARTERY CALCIFICATION: Mild. UPPER ABDOMEN: Normal. MUSCULOSKELETAL: Mild scattered degenerative changes in the spine. Chronic post surgical or posttraumatic changes of some right-sided ribs. Procedure Note Mike Zimmerman MD - 10/22/2024 For Patients: As a result of the 21st Century Cures Act, medical imagingexams and procedure reports are released immediately into your electronicmedical record. You may view this report before your referring provider.If you have questions, please contact your health care provider. EXAM: CT CHEST WO LOCATION: [facility] DATE: 10/22/2024 INDICATION: Aspiration Pneumonia Of Right Upper Lobe, UnspecifiedAspiration Pneumonia Type (hc). COMPARISON: CT chest 09/09/2024, 02/07/2024 reviewed. TECHNIQUE: CT chest without IV contrast. Multiplanar reformats wereobtained. Dose reduction techniques were used. CONTRAST: None. FINDINGS: LUNGS AND PLEURA: Background moderate emphysema. Since 09/09/2024, scatteredirregular opacities predominantly in the right lung have either resolvedor substantially decreased, consistent with improvinginfectious/inflammatory process. A few scattered reticular opacitiesremain suggesting areas of scarring. No new acute focal consolidation orfocal groundglass opacity. Mild reticular scarring in lung apices. Nosuspicious pulmonary nodule. No pleural effusion or pneumothorax. MEDIASTINUM/AXILLAE: No adenopathy. No pericardial effusion. Normalvariant aberrant right subclavian artery. Left chest cardiac pacemaker.Moderate atherosclerotic calcifications thoracic aorta. CORONARY ARTERY CALCIFICATION: Mild. UPPER ABDOMEN: Normal. MUSCULOSKELETAL: Mild scattered degenerative changes in the spine. Chronicpost surgical or posttraumatic changes of some right-sided ribs. IMPRESSION: 1. Prior scattered irregular infectious/inflammatory opacitiespredominantly in the right lung have resolved since 09/09/2024, now withsome residual areas of reticular scarring. 2. No new acute findings. us Anastasia FUCHS CT Final Resu lt * (ABNORMAL) XR DXA BONE DENSITY 2 SITES AXIAL AND 1 SITE PERIPHERAL (06/16/2024 3:44 PM CDT) Anatomical Region Laterality Modality LUMBAR SPINE Other Impressions 06/25/2024 4:12 PM CDT Osteopenia. RECOMMENDATIONS: The National Osteoporosis Foundation recommends pharmacologic treatment for patients with T-scores of -2.5 or less, patients with prior history of fragility fractures, or patients with 10-year probability of greater than 3% at hips or greater than 20% of suffering major osteoporotic fractures. Recommend continued optimization of calcium and vitamin D intake through dietary means and/or supplementation and regular exercise. Consider pharmacologic therapy for osteopenia with increased fracture risk. Follow-up bone density reading in 2 years if therapy initiated to assess therapeutic efficacy. Delmy Madrigal PA-C [facility] 06/25/2024 Narrative 06/25/2024 4:12 PM CDT For Patients: Results are automatically released to your [facility] ([employer]) account once available, in compliance with federal regulations. This means that you may see your results before your provider has had a chance to review them. Please allow 2-3 business days for your provider to comment on the results. XR DXA Bone Mineral Density (BMD) EXAM LOCATION: [address] [address] PATIENT NAME: Rosalia Allen DATE OF : 1950 EXAM DATE: 06/16/2024 REQUESTING PROVIDER: Yessi Bernal DO GENDER AT : female HEIGHT: 5' 2.09 (06/10/2024) WEIGHT: 125 lb (06/10/2024) MENOPAUSAL STATUS: Postmenopausal RACE/ETHNICITY: White RISK FACTORS: Family History of Hip Fracture (parental), Smoking (prior), Weight < 127 lbs., and White Race CURRENT MEDICATION FOR BONE LOSS: NONE INDICATION: Follow-up of existing osteopenia COMPARISON DATE(S): DXA scans are compared to prior studies for a patient only when the two (or more) studies were performed on the same scanner. It is not possible to compare data generated on one scanner to data from another because there are not standards in DXA equipment. This applies even if the two scanners are made by the same microfilm operator. PROCEDURE: Dual-energy x-ray absorptiometry performed with routine technique. Reporting is completed in the form of a T-score. The T-score represents the standard deviation from peak bone mass based on young healthy adult. A Z-score is used for diagnosis in premenopausal women, and for men under the age of 50. FINDINGS: RESULT LUMBAR SPINE L2 - L4 (EXCLUDE L1) BMD: 1.365 g/cm2 T-Score: + 1.2 Z-Score: + 3.2 Change from prior in 2018: Increase 4.4%. RESULTS FEMUR Left femoral neck BMD: 0.837 g/cm2 T-Score: - 1.4 Z-Score: + 0.7 Change from prior in 2020: Decrease 4.3%. Right femoral neck BMD: 0.732 g/cm2 T-Score: - 2.2 Z-Score: - 0.1 Change from prior in 2020: Decrease 8.7%. Left hip BMD: 0.890 g/cm2 T-Score: - 0.9 Z-Score: + 1.0 Change from prior in 2020: Decrease 5.0%. Right hip BMD: 0.852 g/cm2 T-Score: - 1.2 Z-Score: + 0.7 Change from prior in 2020: Decrease 3.8%. RESULT FOREARM Left Forearm distal radius BMD: 0.527 g/cm2 T-Score: - 2.4 Z-Score: - 0.1 Change from prior: None WHO criteria: Normal: T-score at or above -1 SD Osteopenia: T-score between -1.1 and -2.4 SD Osteoporosis: T-score at or below -2.5 SD FRAX RISK CALCULATION (USED FOR OSTEOPENIA ONLY): 10-year probability of major osteoporotic fracture: 26.2%. 10-year probability of hip fracture: 16.6%. Yessi Flore Gabe DO DEXA Final Resul t * ANTI HCV [89624.2] (05/12/2015 9:13 AM CDT) HEPATITIS C ANTIBODY Non-Reacti ve Non-Reacti ve 05/12/2015 4:48 PM CDT [facility] Blood specimen (specimen) BLOOD SPECIMEN / Unknown Venipuncture / Unknown 05/12/2015 9:13 AM CDT 05/12/2015 9:14 AM CDT Narrative [facility] - 05/12/2015 4:48 PM CDT Antibodies to HCV not detected; does not exclude the possibility of exposure to HCV. Onelia Hoang MD SEND OUTS Final Result [facility] 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 Do not delete or resolve the Infection Flag. 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 POLST 02/06/2024 Healthcare Directive 02/12/2023 023 * DNR (Latest Code Status on File) Date Activated Date Inactivated Comments 09/08/2024 4:01 PM 09/11/2024 4:58 PM Question Answer Comments Code Status Discussion: Reviewed Preferences * DNR Date Activated Date Inactivated Comments 08/21/2024 4:15 PM 08/28/2024 5:02 PM Question Answer Comments Code Status Discussion: Reviewed Preferences * DNR Date Activated Date Inactivated Comments 08/20/2024 8:29 PM 08/21/2024 4:15 PM Question Answer Comments Code Status Discussion: Unable to Assess Preferences, Provider to review later * DNR Date Activated Date Inactivated Comments 02/07/2024 12:27 PM 02/11/2024 4:31 PM Per HCD from 2022, confirmed with patient on 02/07/24. Question Answer Comments Code Status Discussion: Reviewed Preferences * Full Code Date Activated Date Inactivated Comments 01/30/2024 9:35 PM 02/01/2024 4:44 PM Question Answer Comments Code Status Discussion: Reviewed Preferences Care Teams Watershed Coordinator Relationship Specialty [place] [address] [place] [address] PCP - General Family Practice 01/08/17 Nancie Myers, PharmD Pharmacist Medication Management Pharmacology 01/24/23 01/30/25 [place] [address] [place] [address] Consulting Physician Cardiovascular Disease 09/17/[address] [address] 09/11/24
[2024-12-28 12:48] VITALS: BP 136/86; PULSE 61; RESP 22; TEMP 36.6; O2SAT 98; BMI 24.0
--- NOTE | 2024-12-28 13:28 | CRLHL7_ITS ---
For Patients: As a result of the Cures Act, medical imaging exams and procedure reports are released immediately into your electronic medical record. You may view this report before your referring provider. If you have questions, please contact your health care provider. INDICATION: Pain TECHNIQUE: Two views lumbar spine FINDINGS/IMPRESSION: Mild levoconvex curvature of the lumbar spine. Mild lumbar spondylosis. Normal height minimal retrolisthesis of L1 on L2. No acute fractures. Dictated by Ange Grossman MD @ 12/28/2024 2:13:00 PM (Electronically Signed)
--- NOTE | 2024-12-28 13:31 | ED.GENADULT ---
HPI - General Adult General Stated complaint: back pain Time Seen by Provider: 12/28/24 13:06 Source: patient Mode of arrival: ambulatory Limitations: no limitations History of Present Illness HPI narrative: 74-year-old female coming in today complaining of low back pain that has been going on for a month. Patient states that the pain started slowly and has been progressively getting worse. Movement generally makes it better and resting makes it worse. Pain radiates down her legs and into her entire back. She denies falling since the pain started but states that about 2 months ago she fell on her back. She denies loss of bowel or bladder control. She denies neural object deficits of the lower extremities. She denies numbness of the groin in the area. She denies fevers or chills. No nausea or vomiting. She states that last night she had a really hard time sleeping so she decided to come into the emergency department for evaluation today. She states that she was given hydrocodone to use for pain it did not help her last night. Related Data Home Medications ?Medication ?Instructions ?Recorded ?Confirmed atorvastatin 40 mg tablet 40 mg PO DAILY 01/17/23 12/28/24 albuterol sulfate 90 mcg/actuation inhalation 02/23/23 aerosol inhaler famotidine 20 mg tablet 20 mg PO Q12H 02/23/23 12/28/24 gabapentin 600 mg tablet 600 mg PO 3XD 02/23/23 12/28/24 hydrocodone 5 mg-acetaminophen 325 1 tab PO DAILY PRN 02/23/23 12/28/24 mg tablet trazodone 50 mg tablet 50 mg PO QPM 02/23/23 12/28/24 amlodipine 2.5 mg tablet 2.5 mg PO DAILY 12/28/24 12/28/24 apixaban 5 mg tablet (Eliquis) 5 mg PO BID 12/28/24 12/28/24 hydrocortisone 1 % topical cream applic topical 12/28/24 ipratropium 0.5 mg-albuterol 3 mg ml inhalation 12/28/24 (2.5 mg base)/3 mL nebulization soln lisinopril 10 mg tablet 10 mg PO DAILY 12/28/24 12/28/24 sotalol 80 mg tablet mg PO DAILY 12/28/24 umeclidinium 62.5 mcg-vilanterol 1 ea inhalation DAILY 12/28/24 12/28/24 25 mcg/actuation powdr for inhalation (Anoro Ellipta) Allergies Allergy/AdvReac Type Severity Reaction Status Date / Time No Known Drug Allergies Allergy Verified 12/28/24 12:57 Review of Systems Status of ROS: Reports: 6 or more systems reviewed and unremarkable except as noted in History and below [facility] Social History Smoking Status: Unknown if ever smoked Exam Narrative: Exam Narrative: Elderly, well-developed patient in no acute distress. On chronic oxygen. Alert and oriented. Answers questions appropriately. Mood and affect are appropriate. Thoughts are goal oriented and rational. No tangential or magical thinking noted. HEENT: Normocephalic atraumatic. Pupils are equally round reactive to light. Extraocular muscles are intact. Conjunctivae are moist without any icterus noted. Back: Normal appearance. Patient complains of extreme tenderness with gentle palpation to the skin of the bilateral lower back. Difficult to assess level of discomfort given the slightest touch causes patient to yell in pain. Cannot do a straight leg test as patient will not relax the lower extremities and follow commands. She is able to get up and down from the examination bed without assistance. Strength is 5/5 bilateral lower extremities both proximal and distal muscle groups. Reflexes 2+ and symmetric at the knees. Const: Vital Signs, click to edit/add: Vital Signs - 24 hr 12/28/24 12:48 Temperature 97.8 F Pulse Rate [Right Pulse Oximeter] 61 Respiratory Rate 22 Blood Pressure [Ri ght Upper Arm] 136/86 Pulse Oximetry 98 Oxygen Delivery Me thod Room Air Nasal Can nula Oxygen Flow Rate 3 Course Course ED Course: Given the amount of pain she was in in the duration of her pain we did go ahead and do a lumbar spine x-ray which was unremarkable. Patient also received 50 mcg of IV fentanyl which helped her pain quite a bit and she was able to sleep while she was here. Vital Signs Vital signs: Initial Vital Signs Temperature 97.8 F 12/28/24 12:48 Temperature Source Temporal Artery Scan 12/28/24 12:48 Pulse Rate 61 12/28/24 12:48 Pulse Rhythm Regular 12/28/24 12:48 Pulse Strength 3+ Normal 12/28/24 12:48 Respiratory Rate 22 12/28/24 12:48 Blood Pressure 136/86 12/28/24 12:48 Blood Pressure Mean 102 12/28/24 12:48 Blood Pressure Position Sitting 12/28/24 12:48 Pulse Oximetry 98 12/28/24 12:48 Oxygen Delivery Method Room Air, Nasal Cannula 12/28/24 12:48 Oxygen Flow Rate 3 12/28/24 12:48 Vital Signs Temperature 97.8 F 12/28/24 12:48 Pulse Rate 61 12/28/24 12:48 Respiratory Rate 22 12/28/24 12:48 Blood Pressure 136/86 12/28/24 12:48 Pulse Oximetry 98 12/28/24 12:48 Oxygen Delivery Method Room Air, Nasal Cannula 12/28/24 12:48 Oxygen Flow Rate 3 12/28/24 12:48 Temperature 97.8 F 12/28/24 12:48 Pulse Rate 61 12/28/24 12:48 Respiratory Rate 22 12/28/24 12:48 Blood Pressure 136/86 12/28/24 12:48 Pulse Oximetry 98 12/28/24 12:48 Oxygen Delivery Method Room Air, Nasal Cannula 12/28/24 12:48 Oxygen Flow Rate 3 12/28/24 12:48 Medications Administered Medications: Discontinued Medications Generic Name Dose Route Start Last Admin Trade Name Freq PRN Reason Stop Dose Admin Fentanyl 50 mcg 12/28/24 13:50 12/28/24 14:14 Fentanyl 100 Mcg/2 Ml Inj IVP 12/28/24 13:51 50 mcg ONCE ONE Administration Medical Decision Making MDM Narrative Medical decision making narrative: 74-year-old female with low back pain for a month. Discussed following up with her primary care provider to discuss need for further imaging versus physical therapy and pain management. Patient and her daughter were in agreement with this plan and had no other questions. Imaging Data X-ray lumbar spine: Attestation: I have reviewed the pertinent imaging results. Radiologist's impression: TECHNIQUE: Two views lumbar spine FINDINGS/IMPRESSION: Mild levoconvex curvature of the lumbar spine. Mild lumbar spondylosis. Normal height minimal retrolisthesis of L1 on L2. No acute fractures. Discharge Plan Discharge Clinical Impression: Low back pain Patient Disposition: Home, Self-Care Condition: Stable Additional Instructions: Your x-ray today was unremarkable. I recommend you follow-up with your primary care provider to discuss the need for further imaging verses physical therapy and pain management. If you develop a fever, worsening pain, inability to move your legs, numbness in the groin area or loss of bladder or bowel control, then you should return to the emergency department. Prescriptions: No Action famotidine 20 mg tablet 20 mg PO Q12H albuterol sulfate 90 mcg/actuation HFA aerosol inhaler inhalation gabapentin 600 mg tablet 600 mg PO 3XD trazodone 50 mg tablet 50 mg PO QPM hydrocodone-acetaminophen 5-325 mg tablet 1 tab PO DAILY PRN ipratropium-albuterol 0.5 mg-3 mg(2.5 mg base)/3 mL solution for nebulization INHALATION Patient Comments: [NO ORIGINAL SIG] sotalol 80 mg tablet PO DAILY amlodipine 2.5 mg tablet 2.5 mg PO DAILY hydrocortisone 1 % cream topical lisinopril 10 mg tablet 10 mg PO DAILY Eliquis 5 mg tablet 5 mg PO BID Anoro Ellipta 62.5-25 mcg/actuation blister with device 1 ea inhalation DAILY atorvastatin 40 mg tablet 40 mg PO DAILY Follow Up/Referrals: Joseph Yan MD [Primary Care Provider] - Stand Alone Forms: [employer] Info Instructions
--- OUTSIDE RECORDS SUMMARY | 2024-12-28 13:41 | XMS_ITS | Clinical Summary ---
Author Organization [facility] Address [address] [place] [address] Care Team Providers Care Vp Revenue Cycle Name Role Phone Yessi Bernal Primary Care Provider [phone] Nancie Myers PharmD Unavailable [phone] Cary Kinsey MD Unavailable [phone] 7 [facility] Unavailable [phone] Allergies Active Allergy Reactions Criticality Noted Date [...] 1 Each 024 Active nebulizer and compressor ([facility] PulmoNeb LT Comp-Neb) Nebulizer, disposable neb kit x 4, reuseable neb kit x 1, mask x 1, filters x 1. Frequency of use: daily; Medication: DuoNeb length of need: 3 months 1 Each 11/09/19 24 12:02 PM ASSISTANT DESIGNER 024 Active oxygen-air delivery systems (HOME OXYGEN)Indication [...] Active diclofenac topical (Voltaren) 1 % gelIndications:Ac tribal exacerbation of chronic low back pain,Lumbar radiculopathy,Chr [...] meal. 30 Tablet 08/28/20 24 8:59 AM ASSISTANT DESIGNER 024 Active alendronate (FOSAMAX) 70 mg tabletIndications [...] choice. 118 mL 09/11/19 25 9:42 AM ASSISTANT DESIGNER 025 Active famotidine (PEPCID) 20 mg tabletIndications [...] and osteoarthritis of lumbar spine CSA 09/2017. [place] 5/325 09/04 tab three times daily as [...] S/P thoracentesis 05/10/2012 04/01/2018 Pneumonia, MSSA , SPREADER BOX OPERATOR 05/10/20122017 Elevated blood pressure read ing without diagnosis of hypertension 10/28/2008 05/19/2011 Personal history of tobacco use, presenting hazards to health 05/23/2007 05/30/2010 Pneumonia, organism unspecified(486) 05/08/2007 04/01/2018 Other and unspecified hyperlipidemia 05/08/2007 02/24/2023 Tobacco use disorder 08/17/2006 007 MIGRAINE 03/19/2001 05/12/2015 PAIN, ABDOMINAL, EPIGASTRIC 10/22/2004 Encounters Date Type Department Care Team Description 12/25/2024 4:00 PM CDT Office Visit [facility] [address] [place] [address] Cary Kinsey MD Follow Up (in person/follow-up per Dr. Kinsey) 12/25/2024 Travel 12/19/2024 [place]phone [facility] [address] [place] [address] Yessi Bernal DO Referral (DX review) 12/17/2024 Patient Outreach [place] [address] [place] [address] Yessi Bernal, Serious Illness Conversation 12/11/2024 3:00 PM CDT [address] [place] [address] Yessi Bernal, Medication Management; Serious Illness Conversation 12/11/2024 Travel 12/01/2024 [address] [place] [address] Yessi Bernal, Refill Request (Atorvastatin) 11/27/2024 Telephone [place] [address] [place] [address] Yessi Bernal, Appointment 11/24/2024 [address] [place] [address] Yessi Bernal, Refill Request 11/17/2024 Telephone [place] [address] [place] [address] Yessi Bernal DO Refill Request (GABAPENTIN) 11/13/2024 Telephone [place] [address] [place] [address] Yessi Bernal DO Medication Management (gabapentin (NEURONTIN) 600 mg tablet) 11/10/2024 Telephone [place] [address] [place] [address] Yessi Bernal, Questions (Returning call) 11/06/2024 [address]ill [address] [place] [address] Yessi Bernal DO Refill Request (Gabapentin/); Error-please disregard 11/05/2024 1:00 PM ASSISTANT DESIGNER Office Visit [facility] [address] [place] [phone] Ralph Huerta MD Follow Up (COPD) 11/05/2024 Travel 11/04/2024 Refill [facility] [address] [place] [phone] Cary Kinsey MD Refill Request (Sotalol) 11/03/2024 Telephone [facility] [address] [place] [address] Yessi Bernal, Refill Request (gabapentin (NEURONTIN) 600 mg tablet) 10/30/2024 Refill [facility] [address] [place] [address] Yessi Bernal DO Refill Request (Amlodipine/) 10/28/2024 Procedure Only [facility] [address] [place] [phone] Device Check (Remote Medtronic Pacemaker E... 10/27/2024 Refill [facility] [address] [place] [address] Yessi Bernal DO Refill Request (Gabapentin) 10/23/2024 Refill [facility] [address] [place] [address] Yessi Bernal DO Refill Request (HYDROcodone-acetami nophen (5-325 mg/tablet)) 10/22/2024 10:30 AM ASSISTANT DESIGNER Ancillary Procedure [facility] [address] [place] [phone] 10/22/2024 Travel 10/02/2024 Telephone [facility] [address] [place] [address] Yessi Bernal DO Questions 09/30/2024 Telephone [facility] [address] [facility] [address] Yessi Bernal, Medication Management (amplodipine) 09/29/2024 Refill [facility] [address] [facility] [place] [address] Yessi Bernal, Refill Request (Amlodipine) from Last [...] on file Legal Sex Female 5:24 AM ASSISTANT DESIGNER Gender Identity Not on file Sexual Orientation [...] Description 03/02/2025 3:00 PM CDT Office Visit [facility] [address] [place] [phone] Ralph Huerta MD [address] [facility] [address] [place], [place] [phone] 03/05/2025 Procedure Only [facility] [address] [place] [address] Health Maintenance Due Date Last [...] CT CHEST WO Routine 10/22/2024 10:12 AM ASSISTANT DESIGNER Aspiration pneumonia of right upper lobe, unspecified [...] MORPHINE NEG NEG ng/mL 12/18/2024 10:44 AM [facility] AMPHETAMINE URINE NEG <=500 ng/mL 12/18/2024 10:44 AM [facility] BARBITURATE URINE NEG <=200 ng/mL 12/18/2024 10:44 AM [facility] BENZODIAZEPINE URINE NEG <=100 ng/mL 12/18/2024 10:44 AM [facility] BUPRENORPHRINE URINE NEG <=5 ng/mL 12/02 10:44 AM [facility] COCAINE METAB URINE NEG <=300 ng/mL 12/18/2024 10:44 AM [facility] ETHYLGLUCURONIDE URINE NEG <=250 ng/mL 12/18/2024 10:44 AM [facility] FENTANYL URINE NEG <=5 ng/mL 12/18/2024 10:44 AM [facility] METHADONE URINE NEG <=300 ng/mL 12/18/2024 10:44 AM [facility] OPIATES URINE NEG <=300 ng/mL 12/18/2024 10:44 AM [facility] OXYCODONE URINE NEG <=100 ng/mL 12/18/2024 10:44 AM [facility] PROPOXYPHENE URINE NEG <=300 ng/mL 12/18/2024 10:44 AM [facility] THC 50 URINE NEG <=50 ng/mL 12/18/2024 10:44 AM [facility] TRAMADOL NEG <=200 ng/mL 12/18/2024 10:44 AM [facility] PH URINE 6.5 5.0 - 7.0 12/18/2024 10:44 AM [facility] CREAT UR 139 >=20 mg/dL 12/18/2024 10:44 AM [facility] MASS SPECTROMETRY URINE See Below 12/18/2024 10:44 AM CDT [facility] Comment:Acetaminophen, Albut zenaida, Diphenhydramine and Trazodone present. Urine URINE SPECIMEN / Unknown Non-Blood / Unknown 12/11/2024 4:22 PM CDT 12/11/2024 4:22 PM CDT Narrative [facility] - 12/18/2024 10:44 AM CDT Current Outpatient [...] Yessi Bernal DO URINE Final Resul t [facility] [address] [place] [address], [place] * (ABNORMAL) LIPID PANEL W REFLEX [...] LDL-C. Nghia SS et al. FRANCISCO. 2013;310(19): 8226-8467 (http://education.Oh My Green!/faq/MCW295) CHOL/HDLC RATIO 3.1 <5.0 (calc) [facility] [...] Yessi Bernal DO CHEMISTRY Final Resul t [facility] [address] [place] [address], [place] [phone] [employer] [address] [place] [address] * (ABNORMAL) COMP METABOLIC PANEL (12/11/2024 3:58 PM CDT) [facility] GLUCOSE 100(H) 65 - 99 mg/dL [...] Yessi Bernal DO CHEMISTRY Final Resul t [facility] [address] [place] [address], [facility] [address] [place] [address] * CT CHEST WO (10/22/2024 10:12 AM ASSISTANT DESIGNER) Anatomical Region Laterality Modality CHEST, THORAX, HEART Computed To mography 10/22/2024 10:1 2 AM ASSISTANT DESIGNER Impressions 10/22/2024 11:42 AM ASSISTANT DESIGNER 1. Prior scattered irregular infectious/inflammatory opacities predominantly in the right lung have resolved since 09/09/2024, now with some residual areas of reticular scarring. 2. No new acute findings. Narrative 10/22/2024 11:42 AM ASSISTANT DESIGNER For Patients: As a result of the Cures Act, medical imaging exams and procedure reports are released immediately into your electronic medical record. You may view this report before your referring provider. If you have questions, please contact your health care provider. EXAM: CT CHEST WO LOCATION: [facility] DATE: 10/22/2024 INDICATION: Aspiration Pneumonia Of [...] care provider. EXAM: CT CHEST WO LOCATION: [facility] DATE: 10/22/2024 INDICATION: Aspiration Pneumonia Of [...] to assess therapeutic efficacy. Delmy Madrigal PA-C [facility] 06/25/2024 Narrative 06/25/2024 4:12 PM CDT For Patients: Results are automatically released to your [facility] ([employer]) account once available, in compliance with federal regulations. This means that you may see your results before your provider has had a chance to review them. Please allow 2-3 business days for your provider to comment on the results. XR DXA Bone Mineral Density (BMD) EXAM LOCATION: [address] [address] PATIENT NAME: Rosalia Allen DATE OF : [...] two scanners are made by the same drier belt conveyor. PROCEDURE: Dual-energy x-ray absorptiometry performed with routine [...] DEXA Final Resul t * ANTI HCV [[id number]] (05/12/2015 9:13 AM CDT) HEPATITIS C ANTIBODY Non-Reacti ve Non-Reacti ve 05/12/2015 4:48 PM CDT [facility] Blood specimen (specimen) BLOOD SPECIMEN / Unknown Venipuncture / Unknown 05/12/2015 9:13 AM CDT 05/12/2015 9:14 AM CDT Narrative [facility] - 05/12/2015 4:48 PM CDT Antibodies to HCV not detected; does not exclude the possibility of exposure to HCV. Onelia Hoang MD SEND OUTS Final Result [facility] 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 Do not delete or resolve the Infection Flag. 01/15/2023 01/15/2023 Insurance UCARE MEDICARE ADVANTAGE HC UCARE MEDICARE PDGM [facility] Advance Directives Documents on File Type Date Recorded Patient Counselling Psychologist Expl anation POLST 02/06/2024 Healthcare Directive 02/12/2023 [...] Code Status Discussion: Reviewed Preferences Care Teams Vp Revenue Cycle Relationship Specialty [place] [address] [place] [address] PCP - General Family Practice 01/08/17 Nancie Myers, PharmD Pharmacist Medication Management Pharmacology 01/24/23 01/30/25 [place] [address] [place] [address] Consulting Physician Cardiovascular Disease 09/17/[address] [address] 09/11/24
[2024-12-28] MEDS: fentaNYL 100 MCG/2 ML inj 50 MCG IVP (14:14)
[2024-12-28 14:27] VITALS: PULSE 62
== END 2024-12-28 14:29 | disposition home or self-care (01) ==
PROVIDERS: Emergency Provider Family Medicine; PCP Neurological Surgery
DX: M54.50 Low back pain, unspecified (principal)
CPT/HCPCS: 72100; 96374; 99283; 99284; J3010

== ENCOUNTER 2025-05-12 09:57 | Outpatient (CLI) | payer MEDICARE, SELFPAY | END 2025-05-12 09:58 | disposition home or self-care (01) | LOC: INJ CL 09:58 | PROVIDERS: PCP Neurological Surgery; Visit Provider Family Medicine | DX: M54.16 Radiculopathy, lumbar region (principal); M51.362 Other intervertebral disc degeneration, lumbar region with discogenic back pain and lower extremity pain | CPT/HCPCS: 62323; J0702; Q9966 ==

== ENCOUNTER 2025-06-17 17:56 | Emergency (ER) | payer MEDICARE, SELFPAY ==
--- OUTSIDE RECORDS SUMMARY | 2025-06-17 03:15 | XMS_ITS | Continuity of Care Document ---
Author Organization [facility] Address [address] [facility] [place] [address] Phone Care Team Providers Care Sow Farm Technician Name Role Phone Masoud Lucero MD Unavailable Unavailabl e Allergies, Adverse Reactions, Alerts Substance Reaction Status Criticality doxycycline Itching Active No Information vancomycin GI Upset Active No Information Medications Medication Instructions Dosage Effective Dates (start - stop) Status Comments duloxetine 20 mg capsule,delayed release take 1 capsule by oral route every day 20 MG - Active hydrocodone 5 mg-acetaminophen 325 mg tablet Take 1 Tablet by mouth once daily if needed for Pain. Max acetaminophen dose: 4000 mg in 24 hrs. - Active ipratropium 0.5 mg-albuterol 3 mg (2.5 mg base)/3 mL nebulization soln INHALE CONTENTS OF 1 VIAL (3ML) VIA NEBULIZER FOUR TIMES DAILY IF NEEDED FOR SHORTNESS OF BREATH OR WHEEZING - Active alendronate 70 mg tablet Take 1 tablet (70 mg) by mouth once a week in the morning. Take on empty stomach with full glass of water. Do not lie down for 1 hour. - Active Anoro Ellipta 62.5 mcg-25 mcg/actuation powder for inhalation INHALE 1 PUFF BY MOUTH ONCE DAILY. DISCARD INHALER 6 WEEKS AFTER OPENING OR WHEN THE COUNTER READS 0 (AFTER ALL BLISTERS HAVE BEEN USED), WHICHEVER COMES FIRST - Active sotalol 80 mg tablet Take 1 Tablet (80 m g) by mouth every 24 hours. - Active prednisone 20 mg tablet 2 tabs daily for 3 days, 1 tab daily for 3 days, and 1/2 tab daily for 4 days. - Active Eliquis 5 mg tablet Take 1 Tablet (5 mg) by mouth two times daily. - Active Children's Loratadine 5 mg chewable tablet Chew 1 Tablet (5 mg) by mouth once daily. - Active hydrocortisone 1 % topical cream Apply topically to affected area(s) two times daily. - Active gabapentin 600 mg tablet Take 1 Tablet (600 mg) by mouth three times daily. - Active atorvastatin 40 mg tablet TAKE ONE TABLET BY MOUTH AT BEDTIME - Active azithromycin 250 mg tablet Take 1 Tablet (250 mg) by mouth every 24 hours. - Active amlodipine 2.5 mg tablet Take 1 Tablet (2.5 mg) by mouth once daily. - Active famotidine 20 mg tablet Take 1 Tablet (2 0 mg) by mouth two times daily. - Active Robitussin Cough-Chest Congestion DM 5 mg-50 mg/5 mL oral liquid Take 10 mL by mouth every 4 hours if needed for Cough 2nd choice. - Active pantoprazole 40 mg tablet,delayed release Take 1 Tablet (40 mg) by mouth once daily before a meal. - Active diclofenac 1 % topical gel Apply 2 g topically to affected area(s) 4 times daily if needed (back pain). - Active albuterol sulfate HFA 90 mcg/actuation aerosol inhaler Inhale 2 Puffs by mouth every 4 hours if needed for Shortness Of Breath. - Active acetaminophen 500 mg tablet Take 1,000 mg by mouth every 6 hours if needed for Pain (headache). Max acetaminophen dose: 4000mg in 24 hrs. - Active calcium 600 mg (as calcium carbonate 1,500 mg) tablet Take 600 mg by mouth two times daily with meals. - Active trazodone 50 mg tablet Take 50 mg by betsy th at bedtime if needed. - Active Procedures Procedure Date INJ FORAMEN EPIDURAL L/S OFFICE/OUTPATIENT VISIT, NEW Advance Directives Directive Yes / No Effective Date File Name No Information Encounters Encounter Description Practice Location Reason(s) For Visit Diagnoses Date Provider Providers Copied on Encounter [facility], [address] [place] [address], [id number] , [place] [phone] [facility] Radiculopathy, lumbar region 5 Nic Meredith. [address], [place], [id number], [place]. tel:[phone] Referring Provider: Agapito De La FuenteWoraPay [facility] [address] [place] [address], [address]. tel:[phone] OFFICE/OUTPAT IENT VISIT, [facility], [address] [place] [address], [id number] , [place] [phone] [facility] low back pain (chief complaint) Radiculopathy, lumbar regionChronic pain syndromeOther spondylosis, lumbar region 5 Nic Meredith. [address], [place], [id number], [place]. tel:[phone] Referring Provider: Marv Blount [employer] [facility] [address] [place], [address]. tel:[phone] [facility], [address] [place] [address], [id number] , [place] tel:[phone] [facility] No Information [address] Sandra [address]. [address], [place], [id number], [place]. tel:[phone] Family History Family Member Type Diagnosis Age At Onset No Information Payers Payer name Insurance type Covered green party ID Authoriza tion(s) ARE Medicare Advantage Replacement [id number] Social History Type Description Quantity Date Captured Comments Sex Female Smoking Status No Information Chief Complaint And Reason For Visit No Information Reason For Referral Reason For Referral No Information Plan Of Treatment Date Type Action Status Goal PHQ-9. Due on du e Goal Height. Due on d ue Goal Unhealthy drug use screening . Due on due Goal Medication Reconciliation. D ue on due Goal Review Allergy List. Due on due Goal Tobacco Use. Due on 025 due Goal Weight. Due on d ue Goal Tobacco screening. Due on Oc due Goal Update Social History. Due o n due Goal Hepatitis C screening. Due o n due Appointment Rosalia Allen BOOKED History Of Present Illness Encounter Date Complaint History Of Prese nt Illness low back pain Severity level i s 8. Duration: chronic. The patient describes the pain as an ache, burning and stabbing. Symptoms are aggravated by bending, sitting, standing and walking. Comments: This i s my first evaluation of the patient, referred by Marv Blount MD from [facility]. Previous clinic notes, records, and imaging reviewed. Rosalia is a 75 y/o female here for initial consult regarding chronic low back pain. Accompanied by her daughter, Lisette. She has medical hx significant for CVA, Afib, COPD, CKD, hypertension, hypercholesterolemia, CALEB, and GERD. She has a longstanding hx of low back/LLE pain, which have been manageable for several years. However, he current pain began in 12/2024 after she fell backwards on the ground while getting in her car. She did not sustain any serious injuries, though the pain persisted. She started PT, which worsened her pain/made it more constant, and she started developing RLE radicular sx. Pain has been stable since her last MRI in April.Pain originates in the lower lumbar region and BL hips. Pain radiates/shoots down the BLE to her toes in a L5 distribution. LLE sx are chronic. RLE sx are new since April but stable. Has associated numbness in a similar distribution. Pain roughly equal between the axial and radicular pains. Feels she may have some focal weakness of the BLE, starting she has difficulty moving her legs at times, which has been stable and non-progressive. Pain is described as sharp/burning. Pain is aggravated by prolonged walking, standing, and laying down. Denies any vasile bowel/bladder incontinence.She previously completed a L3-4 IESI in 2008 w/ Dr. Nicholson. She tried PT at [facility] in March and April, which worsened her pain. Plans to start acupuncture next month. She also recently completed an L4-5 IESI on 05/12/25 w/ Dr. Nicholson, which provided only 1-2 days of relief. Last lumbar MRI completed in 04/2025 at [facility]. Last lumbar XR completed on 12/28/24 at [facility]. Last L hip/pelvic XR completed on 02/05/25.Previously tried lidocaine patches w/o benefit. She is currently managed on gabapentin 600mg TID, [place] 5/325 QD, Tylenol, and Voltaren gel.Rosalia is interested in pain management through [facility]. No other concerns. Functional Status Date Functional Assessmen t No Information Instructions Date Instruction Additional Infor mation No Information Assessments Type Assessment Date No Information Patient Care Teams Name Effective Dates (start - stop) Status Members No Information
--- OUTSIDE RECORDS SUMMARY | 2025-06-17 03:15 | XMS_ITS | Continuity of Care Document ---
Author Organization [facility] bridget Address [address] [place] [address] Phone Care Team Providers Care Ribbon Hanking Machine Operator Name Role Phone Masoud Lucero MD Unavailable [...] Diagnoses Date Provider Providers Copied on Encounter [facility], [address] [place] [address], [id number] , [place] tel:[phone] [facility] Radiculopathy, lumbar region 5 Nic Meredith. [address], [address], [place], [id number], [place]. tel:[phone] Referring Provider: Agapito De La FuenteSeedfuse [facility] [address] [place] [address], [address]. tel:[phone] OFFICE/OUTPAT IENT VISIT, [facility], [address] [place] [address], [id number] , [place] [phone] [facility] low back pain (chief complaint) Radiculopathy, lumbar regionChronic pain syndromeOther spondylosis, lumbar region 5 Nic Meredith. [address], [address], [place], [id number], [place]. tel:[phone] Referring Provider: Marv Bl[employer] [facility] [address] [place], [address]. tel:[phone] [facility], [address] [place] [address], [id number] , [place] tel:[phone] [facility] No Information 5 Sandra Dorsey. [address], [place] [address], [place], [id number], [place]. tel:[phone] Family History Family Member Type Diagnosis Age At Onset No Information Payers Payer name Insurance type Covered green party ID Authoriza tion(s) ARE Medicare Advantage Replacement [id number] Social History Type Description Quantity Date Captured [...] patient, referred by Marv Blount MD from [facility]. Previous clinic notes, records, and imaging reviewed. [...] w/ Dr. Nicholson. She tried PT at [facility] in March and April, which worsened her pain. Plans to start acupuncture next month. She also recently completed an L4-5 IESI on 05/12/25 w/ Dr. Nicholson, which provided only 1-2 days of relief. Last lumbar MRI completed in 04/2025 at [facility]. Last lumbar XR completed on 12/28/24 at [facility]. Last L hip/pelvic XR completed on 02/05/25.Previously tried lidocaine patches w/o benefit. She is currently managed on gabapentin 600mg TID, Burke 5/325 QD, Tylenol, and Voltaren gel.Rosalia is interested in pain management through [facility]. No other concerns. Functional Status Date Functional Assessmen t No Information Instructions Date Instruction Additional Infor mation No Information Assessments Type Assessment Date No Information Patient Care Teams Name Effective Dates (start - stop) Status Members No Information
--- OUTSIDE RECORDS SUMMARY | 2025-06-17 03:15 | XMS_ITS | Continuity of Care Document ---
Author Organization [facility] enter Address [address] [place] [address] [address] Phone Care Team Providers Care Case Therapist Name Role Phone [facility] Unavailable Unava ilable Advance Directives Directive Yes / No Effective Date File Name No Information Encounters Encounter Description Practice Location Reason(s) For Visit Diagnoses Date Provider Providers Copied on Encounter [facility], [address] [place] [address], [id number], tel:[phone] [facility] No Information [facility]. [address] [place] [address], [id number], . tel:[phone] Referring Provider: Masoud Lucero, [address], [place], [address] . tel:[phone] Family History Family Member Type Diagnosis Age At Onset No Information Payers Payer name Insurance type Covered libertarian ID Authoryakova mary(s) ARE Medicare Advantage Replacement [id number] Social History Type Description Quantity Date Captured [...]
--- OUTSIDE RECORDS SUMMARY | 2025-06-17 03:15 | XMS_ITS | Continuity of Care Document ---
Author Organization [facility] enter Address [address] [place] [address] [address] Phone Care Team Providers Care Jacquard Loom Heddles Tier Name Role Phone [facility] Unavailable Unava ilable Advance Directives Directive Yes / No Effective Date File Name No Information Encounters Encounter Description Practice Location Reason(s) For Visit Diagnoses Date Provider Providers Copied on Encounter [facility], [address] [place] [address], [id number], tel:[phone] [facility] No Information [facility]. [address] [place] [address], [id number], . tel:[phone] Referring Provider: Masoud Lucero, [address], [place], [address] . tel:[phone] Family History Family Member Type Diagnosis Age At Onset No Information Payers Payer name Insurance type Covered alliance party ID Authoryakova mary(s) ARE Medicare Advantage Replacement [id number] Social History Type Description Quantity Date Captured [...]
--- OUTSIDE RECORDS SUMMARY | 2025-06-17 18:01 | XMS_ITS | Clinical Summary ---
Author Organization [facility] Address [address] [place] [address] Care Team Providers Care Desk Director Name Role Phone Cary Kinsey MD Unavailable Unavailable [facility] Unavailable [phone] Marv No MD Primary Care Provider [phone] Allergies Active Allergy Reactions Criticality Noted Date [...] 1 Each 024 Active nebulizer and compressor (DeVilbiss PulmoNeb LT Comp-Neb) Nebulizer, disposable neb kit x 4, reuseable neb kit x 1, mask x 1, filters x 1. Frequency of use: daily; Medication: DuoNeb length of need: 3 months 1 Each 11/09/19 24 12:02 PM BIOMEDICAL SPECIALIST 024 Active oxygen-air delivery systems (HOME OXYGEN)Indication s:Chronic respiratory failure with hypoxia (HC),Stage 2 moderate COPD by GOLD classification (HC) Oxygen for home use Conserving Device. Liters per minute: 2 LPM per nasal cannula. Frequency of use: Continuous with portability.;. Length of need: 99 Months. 1 Each 024 Active traZODone (DESYREL) 50 mg tablet Take 50 mg by mouth at bedtime if needed. Active oxygen-air delivery systems (HOME OXYGEN)Indication s:Chronic respiratory failure with hypoxia and hypercapnia (HC) Oxygen for home use. Liters per minute: 3 per nasal cannula. Frequency of use: Continuous with portability.;. Length of need: 6 Months. 1 Each 024 Active diclofenac topical (Voltaren) 1 % gelIndications:Ac alejandro exacerbation of chronic low back pain,Lumbar radiculopathy,Chr onic bilateral low back pain without sciatica Apply 2 g topically to affected area(s) 4 times daily if needed (back pain). 300 g 3 Active pantoprazole (PROTONIX) 40 mg delayed-release tabletIndications :Gastroesophageal reflux disease, unspecified whether esophagitis present Take 1 Tablet (40 mg) by mouth once daily before a meal. 30 Tablet 08/28/20 24 8:59 AM BIOMEDICAL SPECIALIST 024 Active Additional Information Patient not taking.Reported on 06/04/2025 dextromethorphan- guaiFENesin (ROBITUSSIN DM) (5-50 mg/5 mL) liquidIndications :Cough, unspecified type Take 10 mL by mouth every 4 hours if needed for Cough 2nd choice. 118 mL 09/11/19 25 9:42 AM BIOMEDICAL SPECIALIST Active Additional Information Patient not taking.Reported on 06/04/2025 famotidine (PEPCID) 20 mg tabletIndications :Gastroesophageal reflux disease with esophagitis without hemorrhage Take 1 Tablet (20 mg) by mouth two times daily. 180 Tablet 3 025 Active azithromycin (ZITHROMAX) 250 mg tabletIndications :Chronic obstructive pulmonary disease, unspecified COPD type (HC) Take 1 Tablet (250 mg) by mouth every 24 hours. 90 Tablet 3 025 Active atorvastatin 40 mg tabletIndications :Cerebrovascular accident (CVA), unspecified mechanism (HC) TAKE ONE TABLET BY MOUTH AT BEDTIME 90 Tablet 2 025 Active gabapentin 600 mg tabletIndications :Lumbar back pain with radiculopathy affecting left lower extremity Take 1 Tablet (600 mg) by mouth three times daily. 300 Tablet 3 025 Active hydrocortisone 1 % creamIndications: Allergy, sequela Apply topically to affected area(s) two times daily. 30 g 1 025 Active Additional Information Patient not taking.Reported on 03/10/2025 loratadine 5 mg chewable tabletIndications :Allergy, sequela Chew 1 Tablet (5 mg) by mouth once daily. 90 Tablet 3 025 Active apixaban 5 mg tabletIndications :prevent thromboembolism in AF Take 1 Tablet (5 mg) by mouth two times daily. 180 Tablet 2 025 Active Additional Information Patient not taking.Reported on 06/04/2025 predniSONE 20 mg tabletIndications :Low back pain radiating to left leg 2 tabs daily for 3 days, 1 tab daily for 3 days, and 1/2 tab daily for 4 days. 11 Tablet 025 Active Additional Information Patient not taking.Reported on 06/04/2025 sotaloL (BETAPACE) 80 mg tabletIndications :Paroxysmal atrial fibrillation (HC) Take 1 Tablet (80 mg) by mouth every 24 hours. 90 Tablet 025 Active umeclidinium-vito nteroL (Anoro Ellipta) 62.5-25 mcg/actuation inhalerIndication s:COPD exacerbation (HC) INHALE 1 PUFF BY MOUTH ONCE DAILY. DISCARD INHALER 6 WEEKS AFTER OPENING OR WHEN THE COUNTER READS 0 (AFTER ALL BLISTERS HAVE BEEN USED), WHICHEVER COMES FIRST 180 Each 2 Active alendronate (FOSAMAX) 70 mg tabletIndications :Osteopenia of multiple sites Take 1 tablet (70 mg) by mouth once a week in the morning. Take on empty stomach with full glass of water. Do not lie down for 1 hour. 12 Tablet Active albuterol-ipratro pium (DUONEB) (2.5-0.5 mg) in 3 mL NEBULIZATION solutionIndicatio ns:COPD exacerbation (HC) INHALE CONTENTS OF 1 VIAL (3ML) VIA NEBULIZER FOUR TIMES DAILY IF NEEDED FOR SHORTNESS OF BREATH OR WHEEZING 360 mL Active HYDROcodone-aceta minophen (5-325 mg/tablet)Indicat ions:Chronic bilateral low back pain with left-sided sciatica Take 1 Tablet by mouth once daily if needed for Pain. Max acetaminophen dose: 4000 mg in 24 hrs. 20 Tablet 025 Active albuterol HFA (PRO-AIR; VENTOLIN; PROVENTIL) 90 mcg/actuation inhalerIndication s:Stage 2 moderate COPD by GOLD classification (HC) INHALE 2 PUFFS BY MOUTH EVERY 4 HOURS IF NEEDED FOR SHORTNESS OF BREATH 25.5 g 3 Active amLODIPine (NORVASC) 2.5 mg tabletIndications :Essential hypertension Take 1 Tablet (2.5 mg) by mouth once daily. 100 Tablet Active albuterol HFA (PRO-AIR; VENTOLIN; PROVENTIL) 90 mcg/actuation inhalerIndication s:Stage 2 moderate COPD by GOLD classification (HC) Inhale 2 Puffs by mouth every 4 hours if needed for Shortness Of Breath. 3 Each 1 024 2024 Discontinued amLODIPine (NORVASC) 2.5 mg tabletIndications :Essential hypertension Take 1 Tablet (2.5 mg) by mouth once daily. 100 Tablet 3 025 2024 Discontinued(* Availability/F ormulary change/Cost of medication) HYDROcodone-aceta minophen (5-325 mg/tablet)Indicat ions:Chronic bilateral low back pain with left-sided sciatica Take 1 Tablet by mouth once daily if needed for Pain. Max acetaminophen dose: 4000 mg in 24 hrs. 30 Tablet 025 2024 Discontinued(R eorder (E-cancel not [...] by GOLD classification 09/2017 Lumbar radiculopathy 09/20/2017 Overview (05/15/2025): ~ May 2025: L4-L5 IL epidural steroid injection by Dr. Miller. Issue of repeat prescription 09/20/2017 Overview (04/01/2018): Left lower extremity radiculopathy and osteoarthritis of lumbar spine CSA 09/2017. 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 Elevated blood pressure read ing without diagnosis of hypertension 10/28/2008 05/19/2011 Personal history of tobacco use, presenting hazards to health 05/23/2007 05/30/2010 Pneumonia, organism unspecified(486) 05/08/2007 04/01/2018 Other and unspecified hyperlipidemia 05/08/2007 02/24/2023 Tobacco use disorder 08/17/2006 007 MIGRAINE 03/19/2001 05/12/2015 PAIN, ABDOMINAL, EPIGASTRIC 10/22/2004 Encounters Date Type Department Care Team Description 06/10/2025 Refill [facility] [address] [place] [address] Yessi Bernal DO Refill Request (Albuterol Hfa, Amlodipine) 06/04/2025 3:30 PM CDT Office Visit [facility] [address] [place] [address] Marv No MD Musculoskeletal Problem (Follow-up L4-5 ILESI 05/12/2025) 06/04/2025 Travel 05/29/2025 Refill [facility] [address] [place] [address] Marv No MD Refill Request (HYDROcodone-acetamino phen (5-325 mg/tablet)) 05/25/2025 Refill [facility] [address] [place] [address] Yessi Bernal DO Refill Request (Albuterol-ipratropium ) 05/12/2025 10:20 AM CDT Office Visit [facility] [address] [place] [address] Waldemar Miller MD Procedure (L4-5 ILESI) 05/11/2025 Travel 05/06/2025 Refill [facility] [address] [place] [address] Yessi Bernal DO Refill Request (Alendronate) 05/01/2025 11:10 AM CDT Office Visit [facility] [address] [place] [address] Marv No MD Follow Up (MRI result/back pain) 05/01/2025 Telephone [facility] [address] [place] [address] Yessi Bernal, Medication Management (HYDROcodone-acetamino phen (5-325 mg/tablet)) 05/01/2025 Telephone [facility] [address] [place] [address] Yessi Bernal, Medication Management (apixaban hold) 05/01/2025 Travel 04/30/2025 Refill [facility] [address] [place] [address] Ralph Huerta MD Refill Request (Anoro Ellipta) 04/30/2025 Refill [facility] [address] [place] [address] Payton Song PA Refill Request (Sotalol) 04/28/2025 10:22 AM CDT - 04/28/2025 11:59 PM CDT Hospital Encounter [facility] [address] [place] [address] Marv No MD Hip pain, bilateral; Low back pain radiating to left leg 04/28/2025 Travel 04/27/2025 Refill [facility] [address] [place] [address] Yessi Bernal, Refill Request (HYDROcodone-acetamino phen (5-325 mg/tablet)) 04/19/2025 Telephone [facility] [address] [facility] [address] [place] [phone] Margo Alicea MD Appointment 04/17/2025 Telephone [facility] [address] [place] [address] Yessi Bernal, Questions 04/08/2025 10:26 AM CDT - 04/08/2025 11:59 PM CDT Hospital Encounter [facility] [place] [address] [place] [address] Marv No MD Baker, Joshua, PT 04/08/2025 Travel 04/06/2025 10:41 AM CDT - 04/06/2025 11:59 PM CDT Hospital Encounter [facility] Bridger Gibson, [facility] [address] [place], [place] [address] Oneal, MD Adam Landaverde, Adalgisa Villafana, [employer] SAL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 04/06/2025 Travel 04/01/2025 10:42 AM CDT - 04/01/2025 11:59 PM CDT Hospital Encounter [facility] Bridger Clopton, [facility] [address] [place], [place] [address] Oneal, MD Adam Landaverde, Adalgisa Villafana, PARTY PLAN SALES 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 04/01/2025 Travel 03/30/2025 10:10 AM CDT - 03/30/2025 11:59 PM CDT Hospital Encounter [facility] Bridger Gibson [facility] [address] [place], [place] [address] Marv No MD Baker, Joshua, PT 03/30/2025 Travel 03/27/2025 Refill [facility] [address] [facility] [place] [address] Yessi Bernal, Refill Request (HYDROcodone-acetamino phen (5-325 mg/tablet)/) 03/25/2025 10:40 AM CDT - 03/25/2025 11:59 PM CDT Hospital Encounter [facility] Bridger Gibson [facility] [address] [place], [place] [address] Marv No MD Mace, Adalgisa Villafana, PARTY 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 SALES 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 03/25/2025 Travel 03/23/2025 10:13 AM CDT - 03/23/2025 11:59 PM CDT Hospital Encounter [facility] Bridger Gibson [facility] [address] [place], [place] [address] Marv No MD Baker, Joshua, PT 03/23/2025 Travel 03/18/2025 10:43 AM CDT - 03/18/2025 11:59 PM CDT Hospital Encounter [facility] [place] [place] [address] [place] [address] OnealMarv Thornton MD Mace, Adalgisa Villafana, PARTY 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 SALES 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 03/18/2025 Travel from Last 3 Months Immunizations Immunization Administration Dates Next Due AMB INFLUENZA IIV3 (AGE 65+ YRS) PF (Flu Clinic Only) 06/01/2017 COVID-19 VACCINE SPIKEVAX (M ODERNA 50MCG/0.5ML) 12YO+ PFS 12/11/2024 COVID-19 vaccine (Moderna 50 mcg/0.5mL) 12YO+ BIVALENT PF, MDV 06/05/2022 COVID-19 vaccine (Moderna Miguel jona 50mcg/0.25mL) PF, MDV 11/14/2021 INFLUENZA, IIV3 PF (AGE >= 6 MO) 05/19/2011 Influenza, High-dose Inactivated 06/07/2024,090 05/2015,05/25/2014 Influenza, High-dose Quadriv alent Inactivated 04/09/2023 [...] on file Legal Sex Female 5:24 AM BIOMEDICAL SPECIALIST Gender Identity Not on file Sexual Orientation [...] Sign Reading Time Taken Comments Blood Pressure 160/104 06/04/2025 4:14 PM CDT recheck after 5 minutes Pulse 70 06/04/2025 4:00 PM CDT Temperature 36.4 C (97.5 F) 12/11/2024 3:00 PM CDT Respiratory Rate 18 12/25/2024 4:04 PM CDT Oxygen Saturation 95% 06/04/2025 4:0 0 PM CDT Inhaled Oxygen Concentration - - Weight 56.7 kg (125 lb 1.6 oz) 06/04/2025 4:00 PM CDT Height 154.9 cm (5' 1) 03/02/2025 3:09 PM CDT Body Mass Index 23.64 03/02/2025 3:09 PM CDT Plan of Treatment Upcoming Encounters Date Type Department Care Team (Late st Contact Info) Description 06/25/2025 3:25 PM CDT Office Visit [facility] [address] [place] [address] [place] [address] [place] [address] 07/03/2025 11:30 AM CDT Procedure Only [facility] [address] [place] [address] Drew Hylton, L Ac [address] [place] [address] 07/10/2025 1:00 PM BIOMEDICAL SPECIALIST Procedure Only [facility] [address] [place] [address] Drew Hylton, L Ac [address] [place] [address] 07/13/2025 4:00 PM BIOMEDICAL SPECIALIST Office Visit [facility] [address] [place] [address] Bhargavi Villatoro MD [address] [facility] [address] [place] [address] [place] [address] 07/15/2025 Procedure Only [facility] [address] [place] [phone] 07/17/2025 2:00 PM BIOMEDICAL SPECIALIST Procedure Only [facility] [address] [place] [address] Drew Hylton, L Ac [address] [place] [address] 07/24/2025 3:30 PM BIOMEDICAL SPECIALIST Procedure Only [facility] [address] [place] [address] Drew Hylton, L Ac [address] [place] [address] Health Maintenance Due Date Last Done Comments Influenza Vaccine (#1) 2025 , 04/09/2023, 06/05/2022, Additional history exists Medicare Wellness for age 65+ 06/07/2025 06/06/2024, 06/06/2023, 06/05/2022, Additional history exists Depression screening for age 12+ 06/17/2025 06/17/2024, 06/10/2024, 06/06/2024, Additional history exists BMI (ht and wt on same day) for age 18+ 03/02/2026 03/02/2025, 01/20/2025, 12/25/2024, Additional history exists Tetanus booster 04/09/2033 04/09/2023, 05/10/2012 Hepatitis C screening for age 18-79 Completed 05/12/2015 Pneumococcal series for age 50+ Completed 04/01/2018, 01/08/2017, 05/10/2012, Additional history exists Zoster (shingles) series for age 50+ Completed 12/25/2018, 05/25/2018 RSV vaccine for adults or Completed 06/23/2023 DEXA/DXA scan for age 65+ Completed 2023, 12/07/2020, 05/21/2018, Additional history exists COVID-19 vaccine series Completed 12/12/19 25, 06/07/2024, 04/09/2023, Additional history exists Hepatitis B series for 19+ Aged Out N o longer eligible based on patient's age to complete this topic Procedures Procedure Name Priority Date/Time Associated Diagnosis Comments AMB EPIDURAL STEROID INJECTION Routine 05/12/2025 12:00 AM CDT Chronic bilateral low back pain with left-sided sciatica Lumbar radiculopathy Degeneration of intervertebral disc of lumbar region with discogenic back pain and lower extremity pain MR SPINE LUMBAR WO Routine 04/28/2025 11 :23 AM CDT Hip pain, bilateral Low back pain radiating to left leg XR DXA BONE DENSITY 2 SITES AXIAL AND 1 SITE PERIPHERAL Routine 06/16/2024 3:44 PM CDT Osteopenia of multiple sites ANTI HCV Routine 05/12/2015 9:13 AM CDT Need for hepatitis C screening test from Last 3 Months or Most Recently Relevant to Health Maintenance Results * AMB EPIDURAL STEROID INJECTION (05/12/2025 12:00 AM CDT) us Marv No MD NEUROLOGY ORD Final Res ult * MR SPINE LUMBAR WO (04/28/2025 11:23 AM CDT) Anatomical Region Laterality Modality Spine, LUMBAR SPINE Magnetic Res onance, Other 04/28/2025 12:5 5 PM CDT Narrative 04/28/2025 12:55 PM CDT For Patients: As a result of the 21st Century Cures Act, medical imaging exams and procedure reports are released immediately into your electronic medical record. You may view this report before your referring provider. If you have questions, please contact your health care provider. Indication: Bilateral hip pain, low back pain radiating to the left leg. Technique: Multiplanar, multisequence, MRI of the lumbar spine, obtained without contrast. Comparison: CT abdomen pelvis 08/20/2024, MRI lumbar spine 09/24/2017 Findings: Preserved lumbar lordosis. Grade 1 retrolisthesis and right lateral listhesis L1 on L2 with disc height loss and prominent left eccentric Modic type 1 opposing endplate changes, progressed relative to 2018. Intraosseous hemangiomas at T11 and L5. Chronic inferior endplate concavity at L5. No acute osseous abnormality or suspicious bone marrow lesion. Conus medullaris terminates at T12. Multiple left renal cysts. Unremarkable included SI joints. T12-L1: Mild diffuse disc bulge. No neural foraminal or spinal canal stenosis. L1-L2: Diffuse left eccentric disc-osteophyte complex. No neural foraminal or spinal canal stenosis. L2-L3: Mild diffuse disc bulge, mild facet arthropathy. No neural foraminal or spinal canal stenosis. L3-L4: Mild diffuse disc bulge, mild facet arthropathy. No neural foraminal or spinal canal stenosis. L4-L5: Diffuse disc bulge, moderate left asymmetric facet arthropathy with ligamentum flavum laxity. Mild bilateral neural foraminal narrowing. Left lateral recess stenosis likely impinging the descending left L5 nerve root, without central spinal canal stenosis. L5-S1: Mild disc bulge, lateral eccentric diffuse disc-osteophyte complex, moderate left asymmetric facet arthropathy. No neural foraminal stenosis. Sshe-[id number]-txzq-right lateral recess narrowing, contacting and potentially impinging the descending left S1 nerve root, without central spinal canal stenosis. Impression: 1. At L1-L2, degenerative spondylolisthesis, disc height loss and Modic type 1 endplate changes, progressed relative to 09/24/2017. 2. At L4-L5, mild bilateral neural foraminal narrowing, with left lateral recess stenosis likely impinging the descending left L5 nerve root, also progressed. 3. At L5-S1, left lateral recess narrowing contacting and potentially impinging the descending left S1 nerve root, similar to the prior MRI. Dictated by Marline Castillo MD @ 04/28/2025 12:55:11 PM (Electronically Signed) Procedure Note Marline Castillo, - 04/28/2025 For Patients: As a result of the Cures Act, medical imagingexams and procedure reports are released immediately into your electronicmedical record. You may view this report before your referring provider.If you have questions, please contact your health care provider. Indication: Bilateral hip pain, low back pain radiating to the left leg. Technique: Multiplanar, multisequence, MRI of the lumbar spine, obtained withoutcontrast. Comparison: CT abdomen pelvis 08/20/2024, MRI lumbar spine 09/24/2017 Findings: Preserved lumbar lordosis. Grade 1 retrolisthesis and right laterallisthesis L1 on L2 with disc height loss and prominent left eccentricModic type 1 opposing endplate changes, progressed relative to 2018.Intraosseous hemangiomas at T11 and L5. Chronic inferior endplateconcavity at L5. No acute osseous abnormality or suspicious bone marrowlesion. Conus medullaris terminates at T12. Multiple left renal cysts.Unremarkable included SI joints. T12-L1: Mild diffuse disc bulge. No neural foraminal or spinal canalstenosis. L1-L2: Diffuse left eccentric disc-osteophyte complex. No neural foraminalor spinal canal stenosis. L2-L3: Mild diffuse disc bulge, mild facet arthropathy. No neuralforaminal or spinal canal stenosis. L3-L4: Mild diffuse disc bulge, mild facet arthropathy. No neuralforaminal or spinal canal stenosis. L4-L5: Diffuse disc bulge, moderate left asymmetric facet arthropathy withligamentum flavum laxity. Mild bilateral neural foraminal narrowing. Leftlateral recess stenosis likely impinging the descending left L5 nerveroot, without central spinal canal stenosis. L5-S1: Mild disc bulge, lateral eccentric diffuse disc-osteophyte complex,moderate left asymmetric facet arthropathy. No neural foraminal stenosis.Hnww-rikflen-jhhi-right lateral recess narrowing, contacting andpotentially impinging the descending left S1 nerve root, without centralspinal canal stenosis. Impression: 1. At L1-L2, degenerative spondylolisthesis, disc height loss and Modictype 1 endplate changes, progressed relative to 09/24/2017. 2. At L4-L5, mild bilateral neural foraminal narrowing, with left lateralrecess stenosis likely impinging the descending left L5 nerve root, alsoprogressed. 3. At L5-S1, left lateral recess narrowing contacting and potentiallyimpinging the descending left S1 nerve root, similar to the prior MRI. Dictated by Marline Castillo MD @ 04/28/2025 12:55:11 PM (Electronically Signed) us Marv No MD MR Final Res ult * (ABNORMAL) XR DXA BONE DENSITY 2 [...] therapeutic efficacy. Delmy Madrigal PA-C [facility] 06/25/2024 Narrative 06/25/2024 4:12 PM CDT For Patients: Results are automatically released to your [facility] account once available, in compliance with federal regulations. This means that you may see your results before your provider has had a chance to review them. Please allow 2-3 business days for your provider to comment on the results. XR DXA Bone Mineral Density (BMD) EXAM LOCATION: [address] [address] PATIENT NAME: Rosalia Allen DATE OF : [...] two scanners are made by the same hand painter. PROCEDURE: Dual-energy x-ray absorptiometry performed with routine [...] 26.2%. 10-year probability of hip fracture: 16.6%. us Yessi Flore Gabe DO DEXA Final Resul t * ANTI HCV [06469.2] (05/12/2015 9:13 AM CDT) HEPATITIS C ANTIBODY Non-Reacti ve Non-Reacti ve 05/12/2015 4:48 PM CDT [facility] Blood specimen (specimen) BLOOD SPECIMEN / Unknown Venipuncture / Unknown 05/12/2015 9:13 AM CDT 05/12/2015 9:14 AM CDT Narrative [facility] - 05/12/2015 4:48 PM CDT Antibodies to HCV not detected; does not exclude the possibility of exposure to HCV. us Onelia Hoang MD SEND OUTS Final Result [facility] 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 Do not delete or resolve the Infection Flag. 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
[2025-06-17 18:03] VITALS: BP 143/94; PULSE 86; RESP 20; TEMP 36.2; O2SAT 95; BMI 23.6
--- NOTE | 2025-06-17 18:41 | ED.GENADULT ---
HPI - General Adult General Chief complaint: Back Injury/Pain Stated complaint: back pain Time Seen by Provider: 06/17/25 18:11 Source: patient and family Mode of arrival: ambulatory History of Present Illness HPI narrative: 75-year-old female with known history of degenerative lumbar spine disease presents to the emergency department with worsening back pain. She underwent what sounds like a facet joint injection a month ago here in [place], had a 2nd injection performed at 815 this morning through her new pain clinic. Reports that she has chronic back pain, uses Tylenol, gabapentin and half of a hydrocodone tablet twice daily for this. She states that she was also recently started on duloxetine in the evening. She reports that the injection was uncomplicated. She was not told to hold her blood thinners. Patient got home from her appointment around lunchtime, laid down to rest and over the last few hours, the pain has been worsening, worse than she has ever experienced. It is in the same location as her typical pain, radiates down both legs, left greater than right has is typical for her. It is just stronger than usual. She has a burning sensation her tailbone. Denies any new weakness in her legs. There was no loss of bowel or bladder function. Patient reports that she took a whole hydrocodone tablet this evening but it is not touching her pain. This is only her 2nd injection, did not have increased pain after the 1st injection. No systemic symptoms like fever, new shortness of breath or cardiac symptoms. She is typically on 3 L of oxygen at baseline. No new injury or trauma. Past medical history is reviewed. Most of her records are through a liner per her report. Medications listed as accurate per patient. Only new medication is the duloxetine. ROS is notable for the back pain with radiation as described above, otherwise denies new acute changes systemically times 12 systems. Related Data Home Medications ?Medication ?Instructions ?Recorded ?Confirmed atorvastatin 40 mg tablet 40 mg PO DAILY 01/17/23 12/28/24 albuterol sulfate 90 mcg/actuation inhalation 02/23/23 aerosol inhaler famotidine 20 mg tablet 20 mg PO Q12H 02/23/23 12/28/24 gabapentin 600 mg tablet 600 mg PO 3XD 02/23/23 12/28/24 hydrocodone 5 mg-acetaminophen 325 1 tab PO DAILY PRN 02/23/23 12/28/24 mg tablet trazodone 50 mg tablet 50 mg PO QPM 02/23/23 12/28/24 amlodipine 2.5 mg tablet 2.5 mg PO DAILY 12/28/24 12/28/24 apixaban 5 mg tablet (Eliquis) 5 mg PO BID 12/28/24 12/28/24 hydrocortisone 1 % topical cream applic topical 12/28/24 ipratropium 0.5 mg-albuterol 3 mg ml inhalation 12/28/24 (2.5 mg base)/3 mL nebulization soln lisinopril 10 mg tablet 10 mg PO DAILY 12/28/24 12/28/24 sotalol 80 mg tablet mg PO DAILY 12/28/24 umeclidinium 62.5 mcg-vilanterol 1 ea inhalation DAILY 12/28/24 12/28/24 25 mcg/actuation powdr for inhalation (Anoro Ellipta) Allergies Allergy/AdvReac Type Severity Reaction Status Date / Time No Known Drug Allergies Allergy Verified 05/12/25 15:16 PFSH PFS Social History Smoking Status: Unknown if ever smoked Exam Const: Vital Signs, click to edit/add: Vital Signs - 24 hr 06/17/25 18:03 Temperature 97.1 F L Pulse Rate [Pulse Oximeter] 86 Respiratory Rate 20 Blood Pressure [Ri ght Upper Arm] 143/94 H Pulse Oximetry 95 Oxygen Delivery Me thod Nasal Cannula Oxygen Flow Rate 3 Documenting provider has reviewed patient's vital signs: yes Other: Yelling in distress due to pain. But moves all extremities. Speaks full sentences, mentation intact. HENMT: Common normals: normocephalic, moist oral mucous membranes and oropharynx normal Head and scalp: normocephalic Face and sinus: normal facial exam Eye: Common normals: conjunctivae normal General eye: normal appearance of both eyes Conjunctiva: conjunctiva(e) normal Neck & C-Spine: General: normal visual inspection Resp: Common normals: normal respiratory effort and no use of accessory muscles Effort & inspection: able to speak in complete sentences Cardio: Common normals: regular rate, regular rhythm, S1 normal heart sound, S2 normal heart sound and no murmurs Rate: regular rate Rhythm: regular rhythm Heart sounds: S1 normal and S2 normal GI: Common normals: Normal to inspection, nondistended, normoactive bowel sounds present, soft to palpation and no hepatosplenomegaly Palpation: soft and no hepatosplenomegaly : Common normals: no CVA tenderness Bladder/kidney exam: no CVA tenderness Back & Pelvis: Common normals: no CVA tenderness Other: Band-Aids on back consistent with bilateral facet joint injections around the L4-L5 area. There is no surrounding redness or drainage or bleeding. No significant bruising. She has no point tenderness to the spine but does have facet joint tenderness and SI tenderness. No deformity. She has normal strength and sensation in the legs but she is healing frequently in is very hesitant to participate in exam, making assessment quite difficult. She refuses to participate and straight leg lifts. Says that she cannot wiggle her feet but does move her feet on forced exam. Screams out in pain anywhere that I touch on her legs, impossible to interpret sensation. No obvious swelling in the ankles, knees or hip areas. Normal capillary refill in the feet. Extremity: Common normals: normal to inspection and normal capillary refill Psych: Appearance: grossly normal Attitude: uncooperative Attention/concentration: attention grossly intact Insight: fair Judgement: fair Skin: Common normals: no rashes or lesions noted General skin exam: no rashes or lesions noted Course Course ED Course: 75-year-old female with increased pain following epidural steroid injection. No deviation from her typical area or type of pain, just worse than usual. No new trauma or injury. There is no evidence that this is a major neurological changes that would suggest a hematoma or other complication from the use of her blood thinners and the injection. Will give 5 mg of oxycodone, 10 of Flexeril, a 1000 of Tylenol and IM morphine. Re-evaluate in 45 minutes Reevaluation(s) Time of Reevaluation #1: 20:07 Reevaluation #1: Spoke with patient and daughter. Patient had marked improvement with the Flexeril, oxycodone, morphine injection and Tylenol. Nursing team ambulated patient to the bathroom with the use of a walker and she did very well with this. We discussed the plan for pain management. I encouraged the family not to be discouraged regarding the steroid injection. She may still likely get good relief from this, it is not uncommon that the pain will worsen for a day or 2 and then return to baseline, with full improvement from this shot sometimes taking 10 days. Prescription for oxycodone 5 mg every 6 hours given, please wake patient at 1:00 a.m. to give another dose of this. And then try to go to half doses 2-3 times per day if able. Flexeril 5-10 mg at bedtime, dose for today has already been given. Continue Tylenol, continue home doses of her typical gabapentin, duloxetine and other interventions. Call their pain clinic doctor tomorrow with an update on how things are going. Patient and family verbalized understanding and agreement with plan. Daughter will take tomorrow off of work make sure that patient continues to improve. Patient lives with daughter and 2 teenage grandchildren that can help her with cares until she recovers. Vital Signs Vital signs: Initial Vital Signs Temperature 97.1 F L 06/17/25 18:03 Temperature Source Temporal Artery Scan 06/17/25 18:03 Pulse Rate 86 06/17/25 18:03 Respiratory Rate 20 06/17/25 18:03 Blood Pressure 143/94 H 06/17/25 18:03 Blood Pressure Mean 110 H 06/17/25 18:03 Blood Pressure Position Sitting 06/17/25 18:03 Pulse Oximetry 95 06/17/25 18:03 Oxygen Delivery Method Nasal Cannula 06/17/25 18:03 Oxygen Flow Rate 3 06/17/25 18:03 Vital Signs Temperature 97.1 F L 06/17/25 18:03 Pulse Rate 86 06/17/25 18:03 Respiratory Rate 20 06/17/25 18:03 Blood Pressure 143/94 H 06/17/25 18:03 Pulse Oximetry 95 06/17/25 18:03 Oxygen Delivery Method Nasal Cannula 06/17/25 18:03 Oxygen Flow Rate 3 06/17/25 18:03 Temperature 97.1 F L 06/17/25 18:03 Pulse Rate 86 06/17/25 18:03 Respiratory Rate 20 06/17/25 18:03 Blood Pressure 143/94 H 06/17/25 18:03 Pulse Oximetry 95 06/17/25 18:03 Oxygen Delivery Method Nasal Cannula 06/17/25 18:03 Oxygen Flow Rate 3 06/17/25 18:03 Medications Administered Medications: Discontinued Medications Generic Name Dose Route Start Last Admin Trade Name Freq PRRenuka Reason Stop Dose Admin Acetaminophen 1,000 mg 06/17/25 18:30 06/17/25 18:45 Acetaminophen 500 Mg Tablet PO 06/17/25 18:31 1,000 mg ONCE ONE Administration Cyclobenzaprine HCl 10 mg 06/17/25 18:30 06/17/25 18:44 Cyclobenzaprine Hcl 10 Mg Tablet PO 06/17/25 18:31 10 mg ONCE ONE Administration Morphine Sulfate 10 mg 06/17/25 18:30 06/17/25 18:41 Morphine 10 Mg/Ml Inj IM 06/17/25 18:31 10 mg ONCE ONE Administration Oxycodone HCl 5 mg 06/17/25 18:30 06/17/25 18:44 Oxycodone 5 Mg Tablet PO 06/17/25 18:31 5 mg ONCE ONE Administration Discharge Plan Discharge Clinical Impression: Lumbar radiculopathy Patient Disposition: Home w/ Parent or Adult Condition: Improved Instructions: Epidural Steroid Injection (DC) Additional Instructions: As we discussed, sometimes the pain can worsen after a steroid injection in the back. Typically this only lasts for a couple of days but it can take a full 10 days for the steroid shot to become affective so do not lose hope that you may still get some relief. Give another dose of the oxycodone at 1:00 a.m., been try to wean 2 half doses every 6-8 hours. I have also given a prescription for Flexeril, a muscle relaxant. This can cause a lot of sedation, so it is meant only be used at bedtime. A full pill may be too strong for you, consider just trying half of the pill at bedtime. You have already been given your dose for today, this is intended to start tomorrow, night. Please continue using Tylenol 1000 mg every 6 hours in addition to the gabapentin, duloxetine and other typical medications. Try to wean off the oxycodone as soon as possible. Update your pain specialist tomorrow about how things are going. They may have additional changes or recommendations. Use a walker to help you get around. You will feel weak for a couple of days. If you have severe neurological changes, loss of bowel or bladder function, other signs of severe injury, please return to the emergency room in the meantime. Activity Level: Activity as Tolerated Discharge Diet: Regular Prescriptions: No Action famotidine 20 mg tablet 20 mg PO Q12H albuterol sulfate 90 mcg/actuation HFA aerosol inhaler inhalation gabapentin 600 mg tablet 600 mg PO 3XD trazodone 50 mg tablet 50 mg PO QPM hydrocodone-acetaminophen 5-325 mg tablet 1 tab PO DAILY PRN ipratropium-albuterol 0.5 mg-3 mg(2.5 mg base)/3 mL solution for nebulization INHALATION Patient Comments: [NO ORIGINAL SIG] sotalol 80 mg tablet PO DAILY amlodipine 2.5 mg tablet 2.5 mg PO DAILY hydrocortisone 1 % cream topical lisinopril 10 mg tablet 10 mg PO DAILY Eliquis 5 mg tablet 5 mg PO BID Anoro Ellipta 62.5-25 mcg/actuation blister with device 1 ea inhalation DAILY atorvastatin 40 mg tablet 40 mg PO DAILY Follow Up/Referrals: Joseph Yan MD [Primary Care Provider, Neurosurgery] Stand Alone Forms: [facility] Info Instructions
[2025-06-17] MEDS: CYCLOBENZAPRINE HCL 10 MG TABLET PO (18:44)
[2025-06-17] MEDS: ACETAMINOPHEN 500 MG TABLET 1000 MG PO (18:45)
== END 2025-06-17 20:19 | disposition home or self-care (01) ==
PROVIDERS: Emergency Provider Family Medicine; PCP Neurological Surgery
DX: M54.16 Radiculopathy, lumbar region (principal)
CPT/HCPCS: 96372; 99283; 99284; A9270; J2270

== ENCOUNTER 2025-07-14 17:05 | Emergency (ER) | payer MEDICARE, SELFPAY ==
--- OUTSIDE RECORDS SUMMARY | 2025-06-17 02:15 | XMS_ITS | Continuity of Care Document ---
Author Organization [facility] enter Address [address] [place] [address] Phone Care Team Providers Care Tube Buffer Name Role Phone [facility] Unavailable Unava ilable Procedures Procedure Date INJ FORAMEN EPIDURAL L/S INJ FORAMEN EPIDURAL L/S Advance Directives Directive Yes / No Effective Date File Name No Information Encounters Encounter Description Practice Location Reason(s) For Visit Diagnoses Date Provider Providers Copied on Encounter [facility], [address] [place] [address], [id number], tel:[phone] [facility] No Information [facility]. [address] [place] [address], [id number], . tel:[phone] Referring Provider: Masoud Lucero, [address] [place], [place] [address], [place], [address] . tel:[phone] Family History Family Member Type Diagnosis Age At Onset No Information Payers Payer name Insurance type Covered republican ID Authoryakova mary(s) UCARE Medicare Advantage Replacement MB [id number] Social History Type Description Quantity Date Captured Comments Sex Female Smoking Status No Information Sexual Orientation Don't Know Chief Complaint And Reason For Visit No Information Reason For Referral Reason For Referral No Information History Of Present Illness Encounter Date Complaint History Of Prese nt Illness No Information Functional Status Date Functional Assessmen t No Information Instructions Date Instruction Additional Infor mation No Information Assessments Type Assessment Date No Information Patient Care Teams Name Effective Dates (start - stop) Status Members No Information
--- OUTSIDE RECORDS SUMMARY | 2025-07-10 02:44 | XMS_ITS | Continuity of Care Document ---
Author Organization [facility] bridget Address [address] [place] [address] Phone Care Team Providers Care Associate Professor Of Theatre Name Role Phone Sunita Flores DNP Unavailable Unavailab le Allergies, Adverse Reactions, Alerts Substance Reaction Status Criticality doxycycline Itching Active No Information vancomycin GI Upset Active No Information Medications Medication Instructions Dosage Effective Dates (start - stop) Status Comments PREDNISONE 20MG TABLETS TAKE 2 TABLETS BY MOUTH DAILY FOR 5 DAYS - Active duloxetine 20 mg capsule,delayed release take 1 [...] 80 mg tablet Take 1 Tablet (80 mg) by mouth every 24 hours. - Active Eliquis 5 mg tablet Take [...] famotidine 20 mg tablet Take 1 Tablet (20 mg) by mouth two times daily. - [...] mg by mouth at bedtime if needed. - Active prednisone 20 mg tablet 2 tabs daily x 5 days - No Longer Active Procedures Procedure Date OFFICE/OUTPATIENT VISIT, EST INJ FORAMEN EPIDURAL L/S OFFICE/OUTPATIENT VISIT, [facility] Advance Directives Directive Yes / No Effective Date File Name No Information Encounters Encounter Description Practice Location Reason(s) For Visit Diagnoses Date Provider Providers Copied on Encounter [facility], [address] [place] [address], [id number] , [place] tel:[phone] [facility] No Information Sandra Dorsey. [address] [place], [place], [id number], [place]. tel:[phone] OFFICE/OUTPAT IENT VISIT, [facility], [address] [place] [address], [id number] , [place] tel:[phone] [facility] low back pain (chief complaint) Radiculopathy, lumbar regionChronic pain syndromeLong term (current) use of opiate analgesic Sandra Dorsey. [address] [place], [place], [id number], [place]. tel:[phone] Referring Provider: Marv Blount [facility] [address] [place], [address]. tel:[phone] [facility], [address] [place] [address], [id number] , [place] tel:[phone] [facility] Radiculopathy, lumbar region Nic Meredith. [address], [place], [place], [id number], [place]. tel:[phone] Referring Provider: Marv Blount [facility] [address] [place], [address]. tel:[phone] OFFICE/OUTPAT IENT VISIT, [facility], [address] [place] [address], [id number] , [place] tel:[phone] [facility] low back pain (chief complaint) Radiculopathy, lumbar regionChronic pain syndromeOther spondylosis, lumbar region 5 Nic Meredith. [address], [place], [place], [id number], [place]. tel:[phone] Referring Provider: Marv Blount, [facility] [address] [place], [address]. tel:[phone] [facility], [address] [place], [place], [id number] , [place] tel:[phone] [facility] [place] No Information 5 Sandra Dorsey. [address], [place], [place], [id number], [place]. tel:[phone] Family History Family Member Type Diagnosis Age At Onset No Information Payers Payer name Insurance type Covered green party ID Yahir limvineet(s) ARE Medicare Advantage Replacement [id number] Social History Type Description Quantity Date Captured Comments Sex Female Smoking Status No Information Sexual Orientation Don't Know Chief Complaint And Reason For Visit No Information Reason For Referral Reason For Referral No Information Plan Of Treatment Date Type Action Status Goal ALT (SGPT). Due on due Goal AST (SGOT). Due on due Goal OARS. Due on due Goal Creatinine. Due on due Goal UDT. Due on due Goal Order Annual PT. Due on due Goal NEONATAL INTENSIVE CARE NURSE Scanned. Due on 025 due Goal INTEGRATED [employer] FAB[employer]ICATOR Paperwork. Due on due Goal PHQ-9. Due on du e Goal Update Social History. Due o n due Goal Weight. Due on d ue Goal Review Allergy List. Due on due Goal Medication Reconciliation. D ue on due Goal Hepatitis C screening. Due o n due Goal Height. Due on d ue Goal Tobacco Use. Due on due Goal Unhealthy drug use screening . Due on due Goal Tobacco screening. Due on Oc due Goal Hepatitis C screening. Due o n due Goal Review Allergy List. Due on due Goal Tobacco screening. Due on Oc due Goal Weight. Due on d ue Goal Medication Reconciliation. D ue on due Goal Height. Due on d ue Goal Unhealthy drug use screening . Due on due Goal PHQ-9. Due on du e Goal Tobacco Use. Due on due Goal Update Social History. Due o n due Goal PHQ-9. Due on du e Goal Height. Due on d ue Goal Unhealthy drug use screening . Due on due Goal Medication Reconciliation. D ue on due Goal Review Allergy List. Due on due Goal Tobacco Use. Due on due Goal Weight. Due on d ue Goal Tobacco screening. Due on Oc due Goal Update Social History. Due o n due Goal Hepatitis C screening. Due o n due Appointment Rosalia lAlen BOOKED History Of Present Illness Encounter Date Complaint History Of Prese nt Illness Comments: Rosalia presents for initial follow up regarding chronic low back pain. Accompanied by her daughter, Lisette, who participates in discussion of care.Chronic low back pain radiates into her BL hip and down her BLE to her toes in an L5 distribution. LLE pain has been ongoing for years, but RLE pain started 04/2025 and has been stable. She is s/p BL L5-S1 TESI on 06/17/25 without relief and feels as though her pain has increased. After the HASEEB, she reported severe abdominal/flank pain and had weakness and called triage. Was instructed to present to the ED and was prescribed oxycodone and a muscle relaxer while there. Expresses frustration with not being prescribed pain medication from [facility] after the procedure. States she will be receiving a double shot in her back on 07/24/[address] Blount.Has recently started acupuncture.She is currently managed on gabapentin 600mg TID, Palacios 5-325 QD, Tylenol, and Voltaren gel. Was prescribed duloxetine last visit, but she is unsure if has provided benefit. No other concerns. low back pain Severity level i s 9. Duration: chronic. The problem is worsening. The patient describes the pain as an ache, burning, sharp and tingling. Symptoms are aggravated by bending, sitting, standing, walking and reaching. low back pain Severity level i s 8. Duration: chronic. The patient describes the pain as an ache, burning and stabbing. Symptoms are aggravated by bending, sitting, standing and walking. Comments: This i s my first evaluation of the patient, referred by Marv Blount MD from [facility]. Previous clinic notes, records, and imaging [...] w/ Dr. Nicholson. She tried PT at [facility] in March and April, which worsened her pain. Plans to start acupuncture next month. She also recently completed an L4-5 IESI on 05/12/25 w/ Dr. Nicholson, which provided only 1-2 days of relief. Last lumbar MRI completed in 04/2025 at [facility]. Last lumbar XR completed on 12/28/24 at [facility]. Last L hip/pelvic XR completed on 02/05/25.Previously tried lidocaine patches w/o benefit. She is currently managed on gabapentin 600mg TID, Palacios 5/325 QD, Tylenol, and Voltaren gel.Rosalia is interested in pain management through [facility]. No other concerns. Functional Status Date Functional Assessmen t No Information Instructions Date Instruction Additional Infor mation No Information Assessments Type Assessment Date No Information Patient Care Teams Name Effective Dates (start - stop) Status Members No Information
--- OUTSIDE RECORDS SUMMARY | 2025-07-14 17:07 | XMS_ITS | Clinical Summary ---
Author Organization [facility] Address [address] [place] [address] Care Team Providers Care Back Tender Name Role Phone Cary Kinsey MD Unavailable Unavailable [facility] Unavailable [phone] Bhargavi Villatoro MD Unavailable [phone] Yessi Bernal DO Primary Care Provider [phone] Allergies Active Allergy Reactions Criticality Noted Date Comments Doxycycline Itching 09/24/2023 Vancomycin GI Upset 02/07/2024 Stomach cramping, severe nausea Medications calcium carbonate (CALCIUM 600) 600 mg calcium (1,500 mg) tabletIndications: Osteopenia of multiple sites Take 600 mg by mouth two times daily with meals. 60 tablet 11 10/17/19 19 Active cholecalciferol (VITAMIN D-3) 2,000 unit capsuleIndications :Osteopenia of multiple sites Take 1 capsule by mouth once daily. 0 10/17/19 19 Active ascorbic acid, vitamin C, (Vitamin C) 500 mg tablet Take 1 Tablet (500 mg) by mouth once daily. 0 01/25/20 23 Active acetaminophen (TYLENOL EXTRA STRGTH) 500 mg tablet Take 1,000 mg by mouth every 6 hours if needed for Pain (headache). Max acetaminophen dose: 4000mg in 24 hrs. 500 Tablet 01/25/20 23 Active oxygen-air delivery systems (HOME OXYGEN)Indications :Chronic respiratory failure with hypoxia (HC),Stage 2 moderate COPD by GOLD classification (HC) Oxygen concentrator for portable use. Liters per minute: 2L per nasal cannula. Frequency of use: With activity;. Length of need: 99 Months. 11/01/19 24 Active NebulizerIndicatio ns:COPD exacerbation (HC) Nebulizer, disposable neb kit x 4, reuseable neb kit x 1, mask x 1, filters x 1. Frequency of use: daily; Medication: DuoNeb length of need: 3 months 1 Each 11/09/19 24 Active nebulizer and compressor (DeVilbiss PulmoNeb LT Comp-Neb) Nebulizer, disposable neb kit x 4, reuseable neb kit x 1, mask x 1, filters x 1. Frequency of use: daily; Medication: DuoNeb length of need: 3 months 1 Each 4 12:02 PM CAMPAIGN MANAGEMENT SPECIALIST 11/09/19 24 Active oxygen-air delivery systems (HOME OXYGEN)Indications :Chronic respiratory failure with hypoxia (HC),Stage 2 moderate COPD by GOLD classification (HC) Oxygen for home use Conserving Device. Liters per minute: 2 LPM per nasal cannula. Frequency of use: Continuous with portability.;. Length of need: 99 Months. 1 Each 11/21/19 24 Active oxygen-air delivery systems (HOME OXYGEN)Indications :Chronic respiratory failure with hypoxia and hypercapnia (HC) Oxygen for home use. Liters per minute: 3 per nasal cannula. Frequency of use: Continuous with portability.;. Length of need: 6 Months. 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 300 g 3 07/17/20 24 Active pantoprazole (PROTONIX) 40 mg delayed-release tabletIndications: Gastroesophageal reflux disease, unspecified whether esophagitis present Take 1 Tablet (40 mg) by mouth once daily before a meal. 30 Tablet 4 8:59 AM CAMPAIGN MANAGEMENT SPECIALIST 08/28/20 24 Active famotidine (PEPCID) 20 mg tabletIndications: Gastroesophageal reflux disease with esophagitis without hemorrhage Take 1 Tablet (20 mg) by mouth two times daily. 180 Tablet 3 09/15/19 25 Active azithromycin (ZITHROMAX) 250 mg tabletIndications: Chronic obstructive pulmonary disease, unspecified COPD type (HC) Take 1 Tablet (250 mg) by mouth every 24 hours. 90 Tablet 3 11/06/19 25 Active hydrocortisone 1 % creamIndications:A llergy, sequela Apply topically to affected area(s) two times daily. 30 g 1 12/26/19 25 Active loratadine 5 mg chewable tabletIndications: Allergy, sequela Chew 1 Tablet (5 mg) by mouth once daily. 90 Tablet 3 12/30/19 25 Active predniSONE 20 mg tabletIndications: Low back pain radiating to left leg 2 tabs daily for 3 days, 1 tab daily for 3 days, and 1/2 tab daily for 4 days. 11 Tablet 02/04/20 25 Active sotaloL (BETAPACE) 80 mg tabletIndications: Paroxysmal atrial fibrillation (HC) Take 1 Tablet (80 mg) by mouth every 24 hours. 90 Tablet 05/01/20 25 Active umeclidinium-vilan teroL (Anoro Ellipta) 62.5-25 mcg/actuation inhalerIndications :COPD exacerbation (HC) INHALE 1 PUFF BY MOUTH ONCE DAILY. DISCARD INHALER 6 WEEKS AFTER OPENING OR WHEN THE COUNTER READS 0 (AFTER ALL BLISTERS HAVE BEEN USED), WHICHEVER COMES FIRST 180 Each 2 05/07/20 25 Active albuterol-ipratrop ium (DUONEB) (2.5-0.5 mg) in 3 mL NEBULIZATION solutionIndication s:COPD exacerbation (HC) INHALE CONTENTS OF 1 VIAL (3ML) VIA NEBULIZER FOUR TIMES DAILY IF NEEDED FOR SHORTNESS OF BREATH OR WHEEZING 360 mL 05/28/20 25 Active albuterol HFA (PRO-AIR; VENTOLIN; PROVENTIL) 90 mcg/actuation inhalerIndications :Stage 2 moderate COPD by GOLD classification (HC) INHALE 2 PUFFS BY MOUTH EVERY 4 HOURS IF NEEDED FOR SHORTNESS OF BREATH 25.5 g 3 06/12/20 25 Active alendronate (FOSAMAX) 70 mg tabletIndications: Osteopenia of multiple sites Take 1 Tablet (70 mg) by mouth once a week in the morning. IN THE MORNING TAKE ON EMPTY STOMACH WITH FULL GLASS OF WATER DO NOT LIE DOWN FOR 1 HOUR 12 Tablet 3 06/25/20 25 Active atorvastatin (LIPITOR) 40 mg tabletIndications: Cerebrovascular accident (CVA), unspecified mechanism (HC) Take 1 Tablet (40 mg) by mouth at bedtime. 100 Tablet 3 06/25/20 25 Active apixaban (ELIQUIS) 5 mg tabletIndications: prevent thromboembolism in AF Take 1 Tablet (5 mg) by mouth two times daily. 200 Tablet 3 06/25/20 25 Active cyclobenzaprine (FLEXERIL) 10 mg tablet Take 10 mg by mouth. 06/17/20 25 Active HYDROcodone-acetam inophen (5-325 mg/tablet)Indicati ons:Chronic bilateral low back pain with left-sided sciatica Take 1 Tablet by mouth once daily if needed for Pain. Max acetaminophen dose: 4000 mg in 24 hrs. 30 Tablet 06/25/20 25 Active DULoxetine (CYMBALTA) 20 mg Delayed-release capsuleIndications :Chronic bilateral low back pain with left-sided sciatica Take 2 Capsules (40 mg) by mouth once daily. 200 Capsule 3 06/25/20 25 Active traZODone (DESYREL) 50 mg tabletIndications: Insomnia, unspecified type Take 1 Tablet (50 mg) by mouth at bedtime if needed for Sleep. 31 Tablet 3 07/14/20 25 Active amLODIPine (NORVASC) 5 mg tabletIndications: Essential hypertension Take 1 Tablet (5 mg) by mouth once daily. 90 Tablet 3 07/13/20 25 Active gabapentin (NEURONTIN) 600 mg tabletIndications: Lumbar back pain with radiculopathy affecting left lower extremity Take 1 Tablet (600 mg) by mouth three times daily. 300 Tablet 07/14/20 25 Active traZODone (DESYREL) 50 mg tablet Take 50 mg by mouth at bedtime if needed. 025 Disconti nued(Reo rder (E-cance l not sent)) dextromethorphan-g uaiFENesin (ROBITUSSIN DM) (5-50 mg/5 mL) liquidIndications: Cough, unspecified type Take 10 mL by mouth every 4 hours if needed for Cough 2nd choice. 118 mL 5 9:42 AM CAMPAIGN MANAGEMENT SPECIALIST 09/11/19 25 025 Disconti nued(*Pa tient states no longer taking) atorvastatin 40 mg tabletIndications: Cerebrovascular accident (CVA), unspecified mechanism (HC) TAKE ONE TABLET BY MOUTH AT BEDTIME 90 Tablet 2 12/03/19 25 025 Disconti nued(Reo rder (E-cance l not sent)) gabapentin 600 mg tabletIndications: Lumbar back pain with radiculopathy affecting left lower extremity Take 1 Tablet (600 mg) by mouth three times daily. 300 Tablet 3 12/12/19 25 025 Disconti nued(*Av ailabili ty/Formu melinda change/C ost of medicati on) apixaban 5 mg tabletIndications: prevent thromboembolism in AF Take 1 Tablet (5 mg) by mouth two times daily. 180 Tablet 2 01/02/20 25 025 Disconti nued(Reo rder (E-cance l not sent)) alendronate (FOSAMAX) 70 mg tabletIndications: Osteopenia of multiple sites Take 1 tablet (70 mg) by mouth once a week in the morning. Take on empty stomach with full glass of water. Do not lie down for 1 hour. 12 Tablet 05/08/20 25 025 Disconti nued(Reo rder (E-cance l not sent)) HYDROcodone-acetam inophen (5-325 mg/tablet)Indicati ons:Chronic bilateral low back pain with left-sided sciatica Take 1 Tablet by mouth once daily if needed for Pain. Max acetaminophen dose: 4000 mg in 24 hrs. 20 Tablet 05/29/20 25 025 Disconti nued(Reo rder (E-cance l not sent)) amLODIPine (NORVASC) 2.5 mg tabletIndications: Essential hypertension Take 1 Tablet (2.5 mg) by mouth once daily. 100 Tablet 06/11/20 25 025 Disconti nued(*Me dication adjustme nt) DULoxetine (CYMBALTA) 20 mg Delayed-release capsule Take 20 mg by mouth once daily. 06/11/20 25 025 Disconti nued(*Me dication adjustme nt) Active Problems Problem Noted Date Diagnosed Date [...] and osteoarthritis of lumbar spine CSA 09/2017. 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 Elevated blood pressure read ing without diagnosis of hypertension 10/28/2008 05/19/2011 Personal history of tobacco use, presenting hazards to health 05/23/2007 05/30/2010 Pneumonia, organism unspecified(486) 05/08/2007 04/01/2018 Other and unspecified hyperlipidemia 05/08/2007 02/24/2023 Tobacco use disorder 08/17/2006 007 MIGRAINE 03/19/2001 05/12/2015 PAIN, ABDOMINAL, EPIGASTRIC 10/22/2004 Encounters Date Type Department Care Team Description 07/14/2025 Nurse Triage [facility] [address] [place] [address] Yessi Bernal, DO Back Pain 07/13/2025 4:00 PM CAMPAIGN MANAGEMENT SPECIALIST Office Visit [facility] [address] [place] [address] Bhargavi Villatoro MD Follow Up (New to you, previously saw Dr Kinsey) 07/13/2025 Travel 07/10/2025 1:00 PM CAMPAIGN MANAGEMENT SPECIALIST Procedure Only [facility] [address] [place] [address] Drew Hylton L Ac Acupuncture 07/10/2025 Refill [facility] [address] [place] [address] Yessi Bernal, DO Refill Request (Trazodone/) 07/10/2025 Travel 07/08/2025 Telephone [facility] [address] [place] [address] Marv No MD Follow Up (Returning call ) 07/08/2025 Telephone [facility] [address] [place] [address] Marv No MD Appointment (Acupuncture Questions ) 07/06/2025 Refill [facility] [address] [place] [address] Yessi Bernal, Refill Request (Gabapentin) 07/06/2025 Telephone [facility] [address] [place] [address] Marv No MD Follow Up 07/03/2025 11:30 AM CDT Procedure Only [facility] [address] [place] [address] Drew Hylton L Ac Acupuncture 07/03/2025 Travel 07/01/2025 Telephone [facility] [address] [place] [address] Yessi Bernal, Questions 06/26/2025 Telephone [facility] [address] [place] [address] Yessi Bernal, Results 06/25/2025 3:25 PM CDT Office Visit [address] [address] Yessi Bernal DO Medicare ANNUAL (subsequent) Visit; Immunization/Injection (COVID-19 vaccine) 06/25/2025 Travel 06/23/2025 Refill [facility] [address] [place] [address] Yessi Bernal DO Medication Management (HYDROcodone-acetamino phen (5-325 mg/tablet) ); Refill Request (HYDROcodone-acetamino phen (5-325 mg/tablet) ) 06/10/[address] [address] Yessi Bernal DO Refill Request (Albuterol Hfa, Amlodipine) 06/04/2025 3:30 PM CDT Office Visit [facility] [address] [place] [address] Marv No MD Musculoskeletal Problem (Follow-up L4-5 ILESI 05/12/2025) 06/04/2025 Travel 05/29/2025 Refill [facility] [address] [place] [address] Marv No MD Refill Request (HYDROcodone-acetamino phen (5-325 mg/tablet)) 05/25/[address] [address] Yessi Bernal DO Refill Request (Albuterol-ipratropium ) 05/12/2025 10:20 AM CDT Office Visit [facility] [address] [place] [address] Waldemar Miller MD Procedure (L4-5 ILESI) 05/11/2025 Travel 05/06/[address] [place] [address] Yessi Bernal DO Refill Request (Alendronate) 05/01/2025 11:10 AM CDT Office Visit [facility] [address] [place] [address] Marv No MD Follow Up (MRI result/back pain) 05/01/2025 Telephone [facility] [address] [place] [address] Yessi Bernal DO Medication Management (HYDROcodone-acetamino phen (5-325 mg/tablet)) 05/01/2025 Telephone [facility] [address] [place] [address] Yessi Bernal DO Medication Management (apixaban hold) 05/01/2025 Travel 04/30/2025 Refill [facility] [address] [place] [phone] Ralph Huerta MD Refill Request (Anoro Ellipta) 04/30/2025 Refill [facility] [address] [place] [address] Payton Song PA Refill Request (Sotalol) 04/28/2025 10:22 AM CDT - 04/28/2025 11:59 PM CDT Hospital Encounter [facility] [address] [place] [address] Marv No MD Hip pain, bilateral; Low back pain radiating to left leg 04/28/2025 Travel 04/27/2025 Refill [facility] [address] [place] [address] Yessi Bernal DO Refill Request (HYDROcodone-acetamino phen (5-325 mg/tablet)) 04/19/2025 Telephone [facility] [address] [place] [address] Margo Alicea MD Appointment 04/17/2025 Telephone [facility] [address] [place] [address] Yessi Bernal, Questions from Last 3 Months Immunizations Immunization Administration Dates Next Due AMB INFLUENZA IIV3 (AGE 65+ YRS) PF (Flu Clinic Only) 06/01/2017 COVID-19 VACCINE SPIKEVAX (M ODERNA 50MCG/0.5ML) 12YO+ PFS 06/25/2025,12/11/2024 COVID-19 vaccine (Moderna 50 mcg/0.5mL) 12YO+ BIVALENT PF, MDV 06/05/2022 COVID-19 vaccine (Moderna Miguel jona 50mcg/0.25mL) PF, MDV 11/14/2021 INFLUENZA, IIV3 PF (AGE >= 6 MO) 05/19/2011 Influenza, High-dose Inactivated 06/07/2024,0 05/2015,05/25/2014 Influenza, High-dose Quadriv alent Inactivated 04/09/2023 Influenza, IIV3 (Age >=3 years) 05/10/20 12,05/19/2011,06/25/2007,08/17,07/13/2005,09/01/2003 Influenza, Inactivated AIIV4 (Age 65+ Years) Preserv Free 04/09/2023,06/05/2022,06/03/2021,05/19 Influenza, Inactivated IIV3 (Age 65+ Years) Preserv Free 06/25/2025,05/22/2019,05/25/2018 Pneumococcal Poly,23-Valent (Pneumovax) 04/01/2018,05/10/2012,08/12/2007,05/09 Pneumococcal conj 13-Valent [...] Answer Date Recorded PHQ-2 TOTAL SCORE 0 06/25/2025 Social Connections Answer Date Recorded Do you often feel lonely or isolated from those around you? 0 08/21/2024 Alcohol Use Answer Date Recorded How often do you have a drink containing alcohol ? 1 07/13/2025 How many drinks containing a lcohol do you have on a typical day when you are drinking? 0 07/13/2025 How often do you have five or more drinks on one occasion? 0 07/13/2025 Financial Resource Strain Answer Date R ecorded [...] on file Legal Sex Female 5:24 AM CAMPAIGN MANAGEMENT SPECIALIST Gender Identity Not on file Sexual [...] Sign Reading Time Taken Comments Blood Pressure 176/96 07/13/2025 4:06 PM CAMPAIGN MANAGEMENT SPECIALIST Pulse 71 07/13/2025 4:06 PM CAMPAIGN MANAGEMENT SPECIALIST Temperature 36.4 C (97.5 F) 12/11/2024 3:00 PM CDT Respiratory Rate 18 07/13/2025 4:06 PM CAMPAIGN MANAGEMENT SPECIALIST Oxygen Saturation 93% 07/13/2025 4:06 PM CAMPAIGN MANAGEMENT SPECIALIST On 3L oxygen Inhaled Oxygen Concentration - - Weight 55.8 kg (123 lb) 07/13/2025 4:06 PM CAMPAIGN MANAGEMENT SPECIALIST Height 152.4 cm (5') 07/13/2025 4:06 PM CAMPAIGN MANAGEMENT SPECIALIST Body Mass Index 24.02 07/13/2025 4:06 PM CAMPAIGN MANAGEMENT SPECIALIST Plan of Treatment Upcoming Encounters Date Type Department Care Team (Late st Contact Info) Description 07/15/2025 Procedure Only [address] [place] [address] 07/17/2025 2:00 PM CAMPAIGN MANAGEMENT SPECIALIST Procedure Only [facility] [address] [place] [address] Drew Hylton, L Ac [address] [place] [address] 07/24/2025 7:40 AM CAMPAIGN MANAGEMENT SPECIALIST Office Visit [facility] [address] [place] [address] Waldemar Miller MD [address] [place] [address] 07/27/2025 2:30 PM CAMPAIGN MANAGEMENT SPECIALIST Procedure Only [facility] [address] [facility] [place] [address] Drew Hylton, L Ac [address] [place] [address] 08/14/2025 3:55 PM CAMPAIGN MANAGEMENT SPECIALIST Office Visit [facility] [address] [place] [address] Marv No MD [address] [place] [address] 09/28/2025 3:50 PM CAMPAIGN MANAGEMENT SPECIALIST Office Visit [facility] [address] [place], [place] [phone] [place] [address] [address] [place], [place] [id number] Health Maintenance Due Date Last Done Comments Depression screening for age 12+ 06/25/2026 06/25/2025, 06/17/2024, 06/10/2024, Additional history exists Medicare Wellness for age 65+ 06/26/2026 06/25/2025, 06/06/2024, 06/06/2023, Additional history exists BMI (ht and wt on same day) for age 18+ 07/13/2026 07/13/2025, 06/25/2025, 03/02/2025, Additional history exists Tetanus booster 04/09/2033 04/09/2023, 05/10/2012 Hepatitis C screening for age 18-79 Completed 05/12/2015 Pneumococcal series for age 50+ Completed 04/01/2018, 01/08/2017, 05/10/2012, Additional history exists Zoster (shingles) series for age 50+ Completed 12/25/2018, 05/25/2018 RSV vaccine for adults or Completed 06/23/2023 DEXA/DXA scan for age 65+ Completed 2023, 12/07/2020, 05/21/2018, Additional history exists Influenza Vaccine Completed 06/25/2025, , 04/09/2023, Additional history exists Hepatitis B series for 19+ Aged Out N o longer eligible based on patient's age to complete this topic Procedures Procedure Name Priority Date/Time Associated Diagnosis Comments SCAN-ELECTROCARDIOG BRAYAN EKG 07/13/2025 12:00 AM CAMPAIGN MANAGEMENT SPECIALIST HEMOGLOBIN A1C Routine 06/25/2025 4:30 PM CDT Abnormal glucose BASIC METABOLIC PANEL Routine 06/25/2025 4:30 PM CDT Essential hypertension Stage 3a chronic kidney disease (HC) AMB EPIDURAL STEROID INJECTION Routine 05/12/2025 12:00 [...] to Health Maintenance Results * SCAN-ELECTROCARDIOGRAM EKG (07/13/2025 12:00 AM CAMPAIGN MANAGEMENT SPECIALIST) us Scanner OTHER Final Result * (ABNORMAL) HEMOGLOBIN A1C (06/25/2025 4:30 PM CDT) HEMOGLOBIN A1C 5.7(H) <5.7 % 06/26/2025 2:54 AM CDT [facility] Comment: For someone without known diabetes, a hemoglobin A1c value between 5.7% and 6.4% is consistent with prediabetes and should be confirmed with a follow-up test. For someone with known diabetes, a value <7% indicates that their diabetes is well controlled. A1c targets should be individualized based on duration of diabetes, age, comorbid conditions, and other considerations. This assay result is consistent with an increased risk of diabetes. Currently, no consensus exists regarding use of hemoglobin A1c for diagnosis of diabetes for children. Blood BLOOD SPECIMEN / Unknown [facility] / Unknown 06/25/2025 4:30 PM CDT 06/25/2025 4:31 PM CDT Yessi Bernal DO CHEMISTRY Final Resul t Performing Organization Address City/[facility]/ZIP Co de Phone Number [facility] [address] [place] [address], [place] [phone] * (ABNORMAL) BASIC METABOLIC PANEL (06/25/2025 4:30 PM CDT) SODIUM 139 135 - 146 mmol/L 06/26/2025 5:04 AM CDT [facility] POTASSIUM 4.3 3.5 - 5.3 mmol/L 06/26/2025 5:04 AM CDT [facility] CARBON DIOXIDE 30 20 - 32 mmol/L 06/26/2025 5:04 AM CDT [facility] GLUCOSE 98 65 - 99 mg/dL 06/26/2025 5:04 AM CDT [facility] Comment: Fasting reference interval CALCIUM 9.6 8.6 - 10.4 mg/dL 06/26/2025 5:04 AM CDT [facility] CREATININE 0.99 0.60 - 1.00 mg/dL 06/26/2025 5:04 AM CDT [facility] BUN/CREATININE RATIO SEE NOTE: 6 - 22 (calc) 06/26/2025 5:04 AM CDT [facility] Comment: Not Reported: BUN and Creatinine are within reference range. EGFR 59(L) > OR = 60 mL/min/1. 73m2 06/26/2025 5:04 AM CDT [facility] UREA NITROGEN (BUN) 18 7 - 25 mg/dL 06/26/2025 5:04 AM CDT [facility] ELECTROLYTE BALANCE 10 7 - 17 mmol/L (calc) 06/26/2025 5:04 AM CDT [facility] CHLORIDE 99 98 - 110 mmol/L 06/26/2025 5:04 AM CDT [facility] Blood BLOOD SPECIMEN / Unknown [facility] / Unknown 06/25/2025 4:30 PM CDT 06/25/2025 4:31 PM CDT Yessi Bernal DO CHEMISTRY Final Resul t Performing Organization Address City/[facility]/ZIP Co de Phone Number [facility] [address] [place] [address], * AMB EPIDURAL STEROID INJECTION (05/12/2025 12:00 AM CDT) Marv No MD NEUROLOGY ORD Final Res [...] asymmetric facet arthropathy. No neural foraminal stenosis. Vdsx-[id number]-right lateral recess narrowing, contacting and potentially impinging [...] left asymmetric facet arthropathy. No neural foraminal stenosis.[id number]-[id number]-right lateral recess narrowing, contacting andpotentially impinging the [...] MD @ 04/28/2025 12:55:11 PM (Electronically Signed) Marv No MD MR Final Res ult [...] to assess therapeutic efficacy. Delmy Madrigal PA-C [facility] 06/25/2024 Narrative 06/25/2024 4:12 PM CDT For Patients: Results are automatically released to your [facility] account once available, in compliance with federal regulations. This means that you may see your results before your provider has had a chance to review them. Please allow 2-3 business days for your provider to comment on the results. XR DXA Bone Mineral Density (BMD) EXAM LOCATION: [facility] [address] [facility] [address] PATIENT NAME: Rosalia Allen DATE OF : [...] two scanners are made by the same water treatment specialist. PROCEDURE: Dual-energy x-ray absorptiometry performed with routine [...] probability of hip fracture: 16.6%. us Yessi Bernal DO DEXA Final Resul t * ANTI HCV [[id number]] (05/12/2015 9:13 AM CDT) HEPATITIS C ANTIBODY Non-Reacti ve Non-Reacti ve 05/12/2015 4:48 PM CDT [facility] Blood specimen (specimen) BLOOD SPECIMEN / Unknown Venipuncture / Unknown 05/12/2015 9:13 AM CDT 05/12/2015 9:14 AM CDT Narrative [facility] - 05/12/2015 4:48 PM CDT Antibodies to HCV not detected; does not exclude the possibility of exposure to HCV. us Onelia Hoang MD SEND OUTS Final Result [facility] 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 Do not delete or resolve the Infection Flag. 01/15/2023 01/15/2023 Insurance [employer] MEDICARE ADVANTAGE HC UCARE MEDICARE PDGM [facility] Advance Directives Documents on File Type Date Recorded Patient Quality Control Alessandra mahan POLST 02/06/2024 Healthcare Directive 02/12/2023 023 * [...] Code Status Discussion: Reviewed Preferences Care Teams Back Tender Relationship Specialty Start [place] [address] [facility] [place] [address] PCP - General Family Practice 06/25/25 Cary Kinsey MD Consulting Physician Cardiovascular Disease 09/17/23 [facility] [address] [place] [address] 09/11/24 Bhargavi Villatoro MD [address] [facility] [address] [place] [address] [place] [address] Cardiovascular Disease 06/18/25
[2025-07-14 17:08] VITALS: BP 129/86; PULSE 76; RESP 18; TEMP 37.7; O2SAT 92
--- NOTE | 2025-07-14 19:41 | ED.GENADULT ---
HPI - General Adult General Chief complaint: Back Injury/Pain Stated complaint: back pain Time Seen by Provider: 07/14/25 19:41 History of Present Illness HPI narrative: Patient presents to the emergency department complaining of back and hip pain. Patient states pain has been ongoing since her fall in december. Patient had an injection however it has not helped. Patient's back pain continues to be uncontrolled at this time. 75-year-old woman presenting to the emergency department with concern of worsening back pain. 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 No new fall. Chronic back and radiating pain into bilateral hips and often legs. Has received 2 injections. Seen here 1 month ago in mid June after her 2nd injection, looked to be a facet injections, and presented with worse pain. My review of record also shows notes from May 12 of this year which indicate an L4-5 interlaminar epidural steroid injection. Was treated successfully here in the emergency department to settle down this exacerbation of pain. Also discharged with some medications. Admittedly did get better for a while. Is due for 3rd of likely 3 injections at the end of next week. Tried even a whole tab of hydrocodone/[place] today without relief. No fever. No noted swelling. Chronically on oxygen Related Data Home Medications ?Medication ?Instructions ?Recorded ?Confirmed atorvastatin 40 mg tablet 40 mg PO DAILY 01/17/23 07/14/25 albuterol sulfate 90 mcg/actuation inhalation 02/23/23 aerosol inhaler famotidine 20 mg tablet 20 mg PO Q12H 02/23/23 07/14/25 gabapentin 600 mg tablet 600 mg PO 3XD 02/23/23 07/14/25 hydrocodone 5 mg-acetaminophen 325 1 tab PO DAILY PRN 02/23/23 07/14/25 mg tablet trazodone 50 mg tablet 50 mg PO QPM 02/23/23 07/14/25 amlodipine 2.5 mg tablet 2.5 mg PO DAILY 12/28/24 07/14/25 apixaban 5 mg tablet (Eliquis) 5 mg PO BID 12/28/24 07/14/25 hydrocortisone 1 % topical cream applic topical 12/28/24 ipratropium 0.5 mg-albuterol 3 mg ml inhalation 12/28/24 (2.5 mg base)/3 mL nebulization soln lisinopril 10 mg tablet 10 mg PO DAILY 12/28/24 07/14/25 sotalol 80 mg tablet mg PO DAILY 12/28/24 umeclidinium 62.5 mcg-vilanterol 1 ea inhalation DAILY 12/28/24 07/14/25 25 mcg/actuation powdr for inhalation (Anoro Ellipta) Allergies Allergy/AdvReac Type Severity Reaction Status Date / Time No Known Drug Allergies Allergy Verified 07/14/25 17:13 Review of Systems Status of ROS: Reports: 6 or more systems reviewed and unremarkable except as noted in History and below PFSH PFS Social History Smoking Status: Former smoker What tobacco products do you use: cigarettes Smoking quit date/years: <= 15 years ago Do you use any of these nicotine containing products: None How often do you have a drink containing alcohol: never AUDIT-C Alcohol total score: 0 Non-prescribed substance use: denies use Exam Narrative: Exam Narrative: Accompanied here by appropriately attentive, supportive daughter. She has a gravelly voice. Nasal cannula is in place. Is breathing easily. At times will demonstrated more significant pain moaning. It appears due to pain is having some difficulty elevating her legs from the bed. No pitting edema distally. Is not demonstrating loss of sensation in fact even light touch of her lower legs demonstrated a hypesthetic response. Transitioning to sitting causes significant pain in the bed. Examination of the back does not reveal any swelling or erythema. Abdomen is sore seems to be tense in the musculature in the inguinal in just above. Const: Vital Signs, click to edit/add: Vital Signs - 24 hr 07/14/25 17:08 Temperature 99.8 F H Pulse Rate [Right Pulse Oximeter] 76 Respiratory Rate 18 Blood Pressure [Ri ght Upper Arm] 129/86 Pulse Oximetry 92 Oxygen Delivery Me thod Nasal Cannula Oxygen Flow Rate 3 Documenting provider has reviewed patient's vital signs: yes Course Vital Signs Vital signs: Initial Vital Signs Temperature 99.8 F H 07/14/25 17:08 Temperature Source Temporal Artery Scan 07/14/25 17:08 Pulse Rate 76 07/14/25 17:08 Pulse Rhythm Regular 07/14/25 17:08 Pulse Strength 3+ Normal 07/14/25 17:08 Respiratory Rate 18 07/14/25 17:08 Blood Pressure 129/86 07/14/25 17:08 Blood Pressure Mean 100 07/14/25 17:08 Blood Pressure Position Sitting 07/14/25 17:08 Pulse Oximetry 92 07/14/25 17:08 Oxygen Delivery Method Nasal Cannula 07/14/25 17:08 Oxygen Flow Rate 3 07/14/25 17:08 Vital Signs Temperature 99.8 F H 07/14/25 17:08 Pulse Rate 76 07/14/25 17:08 Respiratory Rate 18 07/14/25 17:08 Blood Pressure 129/86 07/14/25 17:08 Pulse Oximetry 92 07/14/25 17:08 Oxygen Delivery Method Nasal Cannula 07/14/25 17:08 Oxygen Flow Rate 3 07/14/25 17:08 Temperature 99.8 F H 07/14/25 17:08 Pulse Rate 62 07/14/25 21:35 Respiratory Rate 14 07/14/25 21:35 Blood Pressure 138/84 07/14/25 21:35 Pulse Oximetry 94 07/14/25 21:35 Oxygen Delivery Method Room Air 07/14/25 21:35 Oxygen Flow Rate 3 07/14/25 17:08 Medications Administered Medications: Discontinued Medications Generic Name Dose Route Start Last Admin Trade Name Ciaranq PRN Reason Stop Dose Admin Acetaminophen 1,000 mg 07/14/25 19:54 07/14/25 20:17 Acetaminophen 500 Mg Tablet PO 07/14/25 19:55 1,000 mg ONCE ONE Administration Cyclobenzaprine HCl 10 mg 07/14/25 19:54 07/14/25 20:17 Cyclobenzaprine Hcl 10 Mg Tablet PO 07/14/25 19:55 10 mg ONCE ONE Administration Morphine Sulfate 10 mg 07/14/25 19:54 07/14/25 20:12 Morphine 10 Mg/Ml Inj IM 07/14/25 19:55 10 mg ONCE ONE Administration Oxycodone HCl 5 mg 07/14/25 19:54 07/14/25 20:17 Oxycodone 5 Mg Tablet PO 07/14/25 19:55 5 mg ONCE ONE Administration Medical Decision Making MDM Narrative Medical decision making narrative: Other than flare of pain I do not appreciate red flags to suggest need for further investigation. There been no fall. No fever. No swelling or redness. I think will need to settle the pain and then assess further whether not has more lateralizing weakness that might suggest need for further workup. Is anticoagulated but there have beenno recent injections. Takes minimal at least opiate pain medication. Reviewing successful treatment from last visit I think will duplicate to some degree. Given acetaminophen, morphine injection, tablet of oxycodone, cyclobenzaprine. Monitored in the emergency department. She was able to sleep. We were able to mobilize. She is able to ambulate and pain is notably better. Feels safe for discharge. See patient discharge plan for further discussion Hopefully you can have a good night sleep tonight. Like your last visit we will be prescribing some oxycodone and cyclobenzaprine from [facility]. The oxycodone is an opiate. Similar to your [place]. Take another dose at around 1-2 a.m. try to go to half this initial dose taking it every 6-8 hours. Can also continue with acetaminophen up to 1000 mg every 6 hours. The oxycodone is for temporary use. Cyclobenzaprine is also sedating and perhaps more for evening/night time. Used as a ?muscle relaxer? Please follow-up as scheduled for your injection at the end of next week. Medical Records Medical records reviewed: Yes I reviewed the patient's medical records Discharge Plan Discharge Clinical Impression: Radicular low back pain Patient Disposition: Home w/ Parent or Adult Condition: Improved Additional Instructions: Hopefully you can have a good night sleep tonight. Like your last visit we will be prescribing some oxycodone and cyclobenzaprine from [facility]. The oxycodone is an opiate. Similar to your [place]. Take another dose at around 1-2 a.m. try to go to half this initial dose taking it every 6-8 hours. Can also continue with acetaminophen up to 1000 mg every 6 hours. The oxycodone is for temporary use. Cyclobenzaprine is also sedating and perhaps more for evening/night time. Used as a ?muscle relaxer? Please follow-up as scheduled for your injection at the end of next week. Prescriptions: No Action famotidine 20 mg tablet 20 mg PO Q12H albuterol sulfate 90 mcg/actuation HFA aerosol inhaler inhalation gabapentin 600 mg tablet 600 mg PO 3XD trazodone 50 mg tablet 50 mg PO QPM hydrocodone-acetaminophen 5-325 mg tablet 1 tab PO DAILY PRN ipratropium-albuterol 0.5 mg-3 mg(2.5 mg base)/3 mL solution for nebulization INHALATION Patient Comments: [NO ORIGINAL SIG] sotalol 80 mg tablet PO DAILY amlodipine 2.5 mg tablet 2.5 mg PO DAILY hydrocortisone 1 % cream topical lisinopril 10 mg tablet 10 mg PO DAILY Eliquis 5 mg tablet 5 mg PO BID umeclidinium-vilanterol [Anoro Ellipta] 62.5-25 mcg/actuation blister with device 1 ea inhalation DAILY atorvastatin 40 mg tablet 40 mg PO DAILY Follow Up/Referrals: Joseph Yan MD [Primary Care Provider, Neurosurgery] Stand Alone Forms: [employer] Info Instructions
[2025-07-14 20:15] VITALS: BP 165/112; PULSE 63; RESP 14; O2SAT 96
[2025-07-14] MEDS: ACETAMINOPHEN 500 MG TABLET 1000 MG PO (20:17)
[2025-07-14] MEDS: CYCLOBENZAPRINE HCL 10 MG TABLET PO (20:17)
[2025-07-14 21:35] VITALS: BP 138/84; PULSE 62; RESP 14; O2SAT 94
== END 2025-07-14 22:00 | disposition home or self-care (01) ==
PROVIDERS: Emergency Provider Family Medicine; PCP Neurological Surgery
DX: M54.50 Low back pain, unspecified (principal)
CPT/HCPCS: 96372; 99284; A9270; J2270

== ENCOUNTER 2025-07-24 07:10 | Outpatient (CLI) | payer MEDICARE, SELFPAY | END 2025-07-24 07:11 | disposition home or self-care (01) | LOC: INJ CL 07:10 | PROVIDERS: PCP Neurological Surgery; Visit Provider Family Medicine | DX: M54.16 Radiculopathy, lumbar region (principal); M51.369 Other intervertebral disc degeneration, lumbar region without mention of lumbar back pain or lower extremity pain | CPT/HCPCS: 64483; 64484; Q9966 ==

== ENCOUNTER 2025-08-19 14:39 | Emergency (ER) | payer MEDICARE, SELFPAY ==
--- OUTSIDE RECORDS SUMMARY | 2025-08-19 14:42 | XMS_ITS | Clinical Summary ---
Author Organization [employer] [facility] Address [address] [place] [id number] Care Team Providers Care Career Guidance Technician Name Role Phone Cary Kinsey MD Unavailable Unavailable [facility] [place] Unavailable [phone] Bhargavi Villatoro MD Unavailable [phone] Yessi Bernal DO Primary Care Provider [phone] Allergies Active AllergyReactionsCriticalityNoted KmegRbdrhjogFxwuargrebuQxecbqt86/22/2024 VancomycinGI Upset02/07/2024 Stomach cramping, severe nausea Medications MedicationSigDispense QuantityRefillsLast FilledStart DateEnd DateStatus calcium carbonate (CALCIUM 600) 600 mg calcium (1,500 mg) tablet Indications:Osteopenia of multiple sitesTake 600 mg by mouth two times daily with meals. 60 tablet 11010/17/2018Active cholecalciferol (VITAMIN D-3) 2,000 unit capsule Indications:Osteopenia of multiple sitesTake 1 capsule by mouth once daily.0 10/17/2018Active ascorbic acid, vitamin C, (Vitamin C) 500 mg tablet Take 1 Tablet (500 mg) by mouth once daily.ctive acetaminophen (TYLENOL EXTRA STRGTH) 500 mg tablet Take 1,000 mg by mouth every 6 hours if needed for Pain (headache). Max acetaminophen dose: 4000mg in 24 hrs. 500 Tablet 01/24/2023ctive oxygen-air delivery systems (HOME OXYGEN) Indications:Chronic respiratory failure with hypoxia (HC),Stage 2 moderate COPD by GOLD classification (HC)Oxygen concentrator for portable use. Liters per minute: 2L per nasal cannula. Frequency of use: With activity;. Length of need: 99 Months.11/01/2023ctive Nebulizer Indications:COPD exacerbation (HC)Nebulizer, disposable neb kit x 4, reuseable neb kit x 1, mask x 1, filters x 1. Frequency of use: daily; Medication: DuoNeb length of need: 3 months 1 Each 11/09/2023ctive nebulizer and compressor (DeVilbiss PulmoNeb LT Comp-Neb) Nebulizer, disposable neb kit x 4, reuseable neb kit x 1, mask x 1, filters x 1. ?? Frequency of use: daily; ??Medication: DuoNeb length of need: 3 months 1 Each 11/09/2023 12:02 PM CST11/09/2023ctive oxygen-air delivery systems (HOME OXYGEN) Indications:Chronic respiratory failure with hypoxia (HC),Stage 2 moderate COPD by GOLD classification (HC)Oxygen for home use Conserving Device. Liters per minute: 2 LPM per nasal cannula. Frequency of use: Continuous with portability.;. Length of need: 99 Months. 1 Each 11/21/2023ctive oxygen-air delivery systems (HOME OXYGEN) Indications:Chronic respiratory failure with hypoxia and hypercapnia (HC)Oxygen for home use. Liters per minute: 3 per nasal cannula. Frequency of use: Continuous with portability.;. Length of need: 6 Months. 1 Each 02/11/2024ctive diclofenac topical (Voltaren) 1 % gel Indications:Acute exacerbation of chronic low back pain,Lumbar radiculopathy, Chronic bilateral low back pain without sciaticaApply 2 g topically to affected area(s) 4 times daily if needed (back pain). 300 g ctive pantoprazole (PROTONIX) 40 mg delayed-release tablet Indications:Gastroesophageal reflux disease, unspecified whether esophagitis presentTake 1 Tablet (40 mg) by mouth once daily before a meal. 30 Tablet 08/28/2024 8:59 AM CST08/28/2024ctive famotidine (PEPCID) 20 mg tablet Indications:Gastroesophageal reflux disease with esophagitis without hemorrhage Take 1 Tablet (20 mg) by mouth two times daily. 180 Tablet 5Active azithromycin (ZITHROMAX) 250 mg tablet Indications:Chronic obstructive pulmonary disease, unspecified COPD type (HC) Take 1 Tablet (250 mg) by mouth every 24 hours. 90 Tablet 5Active Additional Information Patient not taking.Reported on 08/14/2025 hydrocortisone 1 % cream Indications:Allergy, sequelaApply topically to affected area(s) two times daily. 30 g 5Active loratadine 5 mg chewable tablet Indications:Allergy, sequelaChew 1 Tablet (5 mg) by mouth once daily. 90 Tablet 5Active predniSONE 20 mg tablet Indications:Low back pain radiating to left leg2 tabs daily for 3 days, 1 tab daily for 3 days, and 1/2 tab daily for 4 days. 11 Tablet 5Active Additional Information Patient not taking.Reported on 08/14/2025 umeclidinium-vilanteroL (Anoro Ellipta) 62.5-25 mcg/actuation inhaler Indications:COPD exacerbation (HC)INHALE 1 PUFF BY MOUTH ONCE DAILY. DISCARD INHALER 6 WEEKS AFTER OPENING OR WHEN THE COUNTER READS 0 (AFTER ALL BLISTERS HAVE BEEN USED), WHICHEVER COMES FIRST 180 Each 5Active albuterol HFA (PRO-AIR; VENTOLIN; PROVENTIL) 90 mcg/actuation inhaler Indications:Stage 2 moderate COPD by GOLD classification (HC)INHALE 2 PUFFS BY MOUTH EVERY 4 HOURS IF NEEDED FOR SHORTNESS OF BREATH 25.5 g 5Active alendronate (FOSAMAX) 70 mg tablet Indications:Osteopenia of multiple sitesTake 1 Tablet (70 mg) by mouth once a week in the morning. IN THE MORNING TAKE ON EMPTY STOMACH WITH FULL GLASS OF WATER DO NOT LIE DOWN FOR 1 HOUR 12 Tablet 5Active atorvastatin (LIPITOR) 40 mg tablet Indications:Cerebrovascular accident (CVA), unspecified mechanism (HC)Take 1 Tablet (40 mg) by mouth at bedtime. 100 Tablet 5Active apixaban (ELIQUIS) 5 mg tablet Indications:prevent thromboembolism in AFTake 1 Tablet (5 mg) by mouth two times daily. 200 Tablet 5Active cyclobenzaprine (FLEXERIL) 10 mg tablet Take 10 mg by mouth.5Active DULoxetine (CYMBALTA) 20 mg Delayed-release capsule Indications:Chronic bilateral low back pain with left-sided sciaticaTake 2 Capsules (40 mg) by mouth once daily. 200 Capsule 5Active traZODone (DESYREL) 50 mg tablet Indications:Insomnia, unspecified typeTake 1 Tablet (50 mg) by mouth at bedtime if needed for Sleep. 31 Tablet 5Active amLODIPine (NORVASC) 5 mg tablet Indications:Essential hypertensionTake 1 Tablet (5 mg) by mouth once daily. 90 Tablet 5Active albuterol-ipratropium (DUONEB) (2.5 mg-0.5 mg)/3 mL NEBULIZATION solution Indications:COPD exacerbation (HC)INHALE CONTENTS OF 1 VIAL (3ML) VIA NEBULIZER FOUR TIMES DAILY IF NEEDED FOR SHORTNESS OF BREATH ORWHEEZING 360 mL 5Active HYDROcodone-acetaminophen (5-325 mg/tablet) Indications:Chronic bilateral low back pain with left-sided sciaticaTake 1 Tablet by mouth 4 times daily if needed for Pain. Max acetaminophen dose: 4000 mg in 24 hrs. 24 Tablet 5Active gabapentin (NEURONTIN) 600 mg tablet Indications:Lumbar back pain with radiculopathy affecting left lower extremity 600mg ( 2 tabs) morning, 600mg ( 2 tabs) mid day, and 900mg ( 3 tabs) at night. Do not stop suddenly. 630 Tablet 5Active sotaloL (BETAPACE) 80 mg tablet Indications:Paroxysmal atrial fibrillation (HC)Take 1 Tablet (80 mg) by mouth every 24 hours. 90 Tablet 5Active sotaloL (BETAPACE) 80 mg tablet Indications:Paroxysmal atrial fibrillation (HC)Take 1 Tablet (80 mg) by mouth every 24 hours. 90 Tablet Discontinued albuterol-ipratropium (DUONEB) (2.5-0.5 mg) in 3 mL NEBULIZATION solution Indications:COPD exacerbation (HC)INHALE CONTENTS OF 1 VIAL (3ML) VIA NEBULIZER FOUR TIMES DAILY IF NEEDED FOR SHORTNESS OF BREATH ORWHEEZING 360 mL Discontinued HYDROcodone-acetaminophen (5-325 mg/tablet) Indications:Chronic bilateral low back pain with left-sided sciaticaTake 1 Tablet by mouth once daily if needed for Pain. Max acetaminophen dose: 4000 mg in 24 hrs. 30 Tablet Discontinued(Reorder (E-cancel not sent)) gabapentin (NEURONTIN) 600 mg tablet Indications:Lumbar back pain with radiculopathy affecting left lower extremity Take 1 Tablet (600 mg) by mouth three times daily. 300 Tablet Discontinued(*Medication adjustment) HYDROcodone-acetaminophen (5-325 mg/tablet) Indications:Chronic bilateral low back pain with left-sided sciaticaTake 1 Tablet by mouth 4 times daily if needed for Pain. Max acetaminophen dose: 4000 mg in 24 hrs. 24 Tablet Discontinued(Reorder (E-cancel not sent)) Active Problems ProblemNoted DateDiagnosed DateACP (advance care planning)09/08/2024Right upper lobe bjukiujxx72/06/9475Uunyml72/06/2025Septic shock08/20/2024neumonia due to infectious reacbach11/18/2024cute respiratory jmokvomtpfxnf48/18/2024History of CVA (cerebrovascular accident)08/20/2024neumonia due to infectious organism 01/30/2024hronic respiratory failure with hypoxia and anpvdxapxst36/04/2024 Paroxysmal atrial upsogvyvuvda95/07/2024cute on chronic respiratory failure with hypoxia and veanlvcdyxi98/19/2024trial fibrillation with rapid ventricular scuosbav62/15/2024OVID-19009/17/20233401Jppsbvhad67/24/2023White coat syndrome without uvkqctlsgxcj28/22/2023VA (cerebral vascular accident)01/20/2023 Pulmonary weujcu2201/19/2023History of CVA01/13/2023Osteopenia of multiple sites 06/05/2018 Overview (07/02/2024): DEXA 05/21/18: T-scores AP: 0.7, LFN -0.9, RFN -1.3. FRAX 9.6%. DEXA 12/07/20: T-scores AP: 0.3, Total hip -0.8, RFN -1.7. FRAX 11.2%. DEXA 06/16/24: T-scores AP: +1.2, LFN -1.4, RFN -2.2. FRAX 26.2, 16.6% Recommend Fosamax. Stage 2 moderate COPD by GOLD zqcvevdnrgkcye51/01/2018Lumbar radiculopathy 09/20/2017 Overview (07/27/2025): ~ May 2025: L4-L5 IL epidural steroid injection by Dr. Miller. ~ July 2025: L5-S1 Left TF epidural steroid injection by Dr. Miller. Issue of repeat mirjltgogdju81/18/2018 Overview (04/01/2018): Left lower extremity radiculopathy and osteoarthritis of lumbar spine CSA 09/2017. [place] 5/325 / tab three times daily as needed for pain #20/month [employer]. Yessi Bernal, .................... 09/20/2017 7:47 AM CKD (chronic kidney disease) stage 3, GFR 30-59 ml/min01/14/2017Acute exacerbation of chronic low back pain08/19/2016Incidental pulmonary nodule, > 3mm and < 8mm-right side08/04/2014IN (acute interstitial nephritis)05/20/2012 Essential qyqyulkuaikk08/16/2011COPD bchdiespkxzf78/13/2011OSA 2009 AHI- 30 /22/2009ulging disc02/16/2009Personal history of tobacco use, presenting hazards to mjywef1405/08/2007Migraine, unspecified, without mention of intractable migraine without mention of status /05/2007LOW BACK PAIN, jbkhaki3608/17/2006CORNEAL ABRASION--R012/29/2004HYPERCHOLESTEROLEMIA, PURE 06/20/2002GERD06/02/2002 Overview (02/02/2017): EGD 02/2017 large hiatal hernia, biopsy normal KGMQPTAJ74/17/2001 Resolved Problems ProblemNoted DateDiagnosed DateResolved DateBack muscle spasm08/19/2016 04/01/2018MRSA wlgcrhmed81RF (acute renal failure)05/16/2012 04/01/2018 Overview (05/16/2012): 05/15/12 S/P uwmsuywozcgeg01Pneumonia, MSSA , CNS Elevated blood pressure reading without diagnosis of ultctfexgzrh43/25/2009 05/19/2011Personal history of tobacco use, presenting hazards to health Pneumonia, organism unspecified(486) Other and unspecified uviyhxvnluxmle10Tobacco use disorder MIGRAINEPAIN, ABDOMINAL, EPIGASTRIC 10/22/2004 Encounters DateTypeDepartmentCare ZkryQkhnyjbcwwd29/17/2025Nurse Triage [facility] [address] [place] [address] Yessi Bernal DO Back Pain (Severe pain to low back/hips/legs, sharp, shooting, tingling and burning pain making it difficult for her to get up and walk.)08/17/2025Refill [facility] [address] [place] [address] Bhargavi Villatoro MD Refill Request (Sotalol)08/14/2025 3:55 PM CSTOffice Visit [facility] [address] [place] [address] Marv No MD Follow Up (Chronic left-sided low back pain with left-sided sciatica/Follow up from injection )08/14/20258835Yzvosm05/01/2025Refill [facility] [address] [place] [address] [place], Yessi Opal, DO Refill Request (Amlodipine)07/28/2025Telephone [facility] [address] [place] [address] Bhargavi Villatoro MD Blood Ensgwkcc85/24/2025 2:30 PM CSTProcedure Only [facility] [address] [place] [address] Drew Hylton L Ac Dhfwtvjybjt12/24/7839Geeurc46/24/2025Refill [facility] [address] [place] [address] Waldemar Miller MD Refill Request (HYDROcodone-acetaminophen (5-325 mg/tablet) )07/24/2025 7:40 AM CSTOffice Visit [facility] at [facility] [address] [place] [address] Waldemar Miller MD Procedure (Left L5-S1 and left S1 TFESI)07/24/2025Refill [facility] [address] [place] [address] Yessi Bernal, DO Refill Request (Albuterol-ipratropium)07/24/2025Telephone [facility] [address] [place] [address] Waldemar Miller MD Injection (Medication) (Pain )07/24/20259291Aymvzc17/14/2025 2:00 PM CSTProcedure Only [facility] [address] [place] [address] Drew Hylton L Ac Mtjignmjrmz56/14/7761Guveqi82/12/2025Procedure Only [facility] [address] [place] [address] Device Check (Remote Medtronic Pacemaker E...07/14/2025Nurse Triage [facility] [address] [place] [address] Yessi Bernal DO Back Pain07/13/2025 4:00 PM CSTOffice Visit [facility] [address] [place] [address] Bhargavi Villatoro MD Follow Up (New to you, previously saw Dr Kinsey)07/13/20256442Csmnbm71/07/2025 1:00 PM CSTProcedure Only [facility] [address] [place] [address] Drew Hylton L Ac Aklrhpdgzdb25/07/2025Refill [facility] [address] [place] [address] Yessi Bernal DO Refill Request (Trazodone/)07/10/20257988Suprzn48/05/2025Telephone [facility] [address] [place] [address] Marv No MD Follow Up (Returning call )07/08/2025Telephone [facility] [address] [place] [address] Marv No MD Appointment (Acupuncture Questions )07/06/2025Refill [facility] [address] [place] [address] Yessi Bernal DO Refill Request (Gabapentin)07/06/2025Telephone [facility] [address] [place] [address] Marv No MD Follow Up07/03/2025 11:30 AM CDTProcedure Only [facility] [address] [facility] [place] [address] Drew Hylton L Ac Ntiqzdcamfr34/31/4486Pgukjy12/29/2025Telephone [facility] [address] [place] [address] Yessi Bernal, Czvyzxlte47/24/2025Telephone [facility] [address] [place] [address] Yessi Bernal, Arccmud9606/25/2025 3:25 PM CDTOffice Visit [facility] [address] [place] [address] Yessi Bernal, Medicare ANNUAL (subsequent) Visit; Immunization/Injection (COVID-19 vaccine) 06/25/20253226Hfaffu88/21/2025Refill [facility] [address] [place] [address] Yessi Bernal, Medication Management (HYDROcodone-acetaminophen (5-325 mg/tablet) ); Refill Request (HYDROcodone-acetaminophen (5-325 mg/tablet) )06/10/2025Refill [place] [address] [place] [address] Yessi Bernal DO Refill Request (Albuterol Hfa, Amlodipine)06/04/2025 3:30 PM CDTOffice Visit [facility] [address] [place] [address] Marv No MD Musculoskeletal Problem (Follow-up L4-5 ILESI 05/12/2025)06/04/2025Travel 05/29/2025Refill [facility] [address] [place] [address] Marv No MD Refill Request (HYDROcodone-acetaminophen (5-325 mg/tablet))05/25/2025Refill [address] [address] Yessi Bernal DO Refill Request (Albuterol-ipratropium)from Last 3 Months Immunizations ImmunizationAdministration DatesNext DueAMB INFLUENZA IIV3 (AGE 65+ YRS) PF (Flu Clinic Only)06/01/2017COVID-19 VACCINE SPIKEVAX (MODERNA 50MCG/0.5ML) 12YO+ PFS 06/25/2025,5COVID-19 vaccine (Moderna 50mcg/0.5mL) 12YO+ BIVALENT PF, MDV102COVID-19 vaccine (Moderna Booster 50mcg/0.25mL) PF, MDV11/14/2021 INFLUENZA, IIV3 PF (AGE >= 6 MO)05/19/2011Influenza, High-dose Inactivated 06/07/2024,05/12/2015,05/25/2014Influenza, High-dose Quadrivalent Inactivated 04/09/2023Influenza, IIV3 (Age >=3 years)05/10/2012,05/19/2011,06/25/2007, 08/17/2006,07/13/2005,09/01/2003Influenza, Inactivated AIIV4 (Age 65+ Years) Preserv Free04/09/2023,06/05/2022,06/03/2021,05/19/2020Influenza, Inactivated IIV3 (Age 65+ Years) Preserv Free06/25/2025,05/22/2019,05/25/2018Pneumococcal Poly,23-Valent (Pneumovax)04/01/2018,05/10/2012,08/12/2007,05/09/2007 Pneumococcal conj 13-Valent (Prevnar 13)01/08/2017RSV, Bivalent Vaccine Reconstituted (Abrysvo 120MCG/0.5mL)06/23/2023Tdap04/09/2023,05/10/2012Zoster (Shingrix-RZV, recombinant)12/25/2018,05/25/2018 Family History Medical HistoryRelationNameCommentsCancer-breastDaughterbilateral mastectomy Heart DiseaseFatherCADRelationNameStatusCommentsDaughterFatherDeceasedMother Social History Tobacco UseTypesPacks/DayYears UsedDateSmoking Tobacco: NruinaVikjynuwhs341 02/05/1987 - 02/05/2007Passive Smoke Exposure: NeverSmokeless Tobacco: Never Tobacco Cessation:Counseling Given: Yes Alcohol UseStandard Drinks/WeekCommentsNot Currently0 (1 standard drink = 0.6 oz pure alcohol)Alcoholic Drinks/day: 0PHQ-2AnswerDate RecordedPHQ-2 TOTAL SCORE0 06/25/2025Social ConnectionsAnswerDate RecordedDo you often feel lonely or isolated from those around you?lcohol UseAnswerDate RecordedHow often do you have a drink containing alcohol?How many drinks containing alcohol do you have on a typical day when you are drinking?0 07/13/2025How often do you have five or more drinks on one occasion? Financial Resource StrainAnswerDate RecordedDifficulty of Paying Living Expenses ifficulty of Paying Living ExpensesNot on file08/23/2024Food InsecurityAnswerDate RecordedDo you worry your food will run out before you are able to buy more?Transportation NeedsAnswerDate RecordedDoes lack of transportation keep you from medical appointments?oes lack of transportation keep you from work, meetings or getting things that you need?1 08/21/2024Housing StabilityAnswerDate RecordedWhat is your housing situation today?Interpersonal SafetyAnswerDate RecordedAre you being hit, kicked, pushed or yelled at (see row info)?No09/08/2024Interpersonal Safety Abuse 12 - 18Not on file09/08/2024Interpersonal Safety Ambulatory Vulnerability Not on file09/08/2024UtilitiesAnswerDate RecordedDo you have trouble paying for utilities (for example, heat, electricity, water, phone)?regnant CommentsNoSex and Gender InformationValueDate RecordedSex Assigned at BirthNot on fileLegal RvoVrsfii08/14/2013 5:24 AM CSTGender IdentityNot on fileSexual OrientationNot on file Obstetrics History GravidaParaTermPretermABIABSABEctopicMultipleLivingLive [id number] OutcomeGATotal LaborLabor/2nd/3poMufplfUejNpjwMatnYSBFasD3K5HluxPzztMORAcwcUfwa Para Last Filed Vital Signs Vital SignReadingTime TakenCommentsBlood Luokgaar378/9208/14/2025 4:06 PM RN CASE MANAGER Crqhg553108/14/2025 4:06 PM UZLGyjvbihxcvg86.4 ??C (97.5 ??F)12/11/2024 3:00 PM CDTRespiratory Akxk209209/12/2024 4:06 PM CSTOxygen Enbxavmhgi91%08/14/2025 4:06 PM CSTInhaled Oxygen Concentration--Aixfqa32.7 kg (125 lb)08/14/2025 4:06 PM RN CASE MANAGER Vaqvxc709.4 cm (5')07/13/2025 4:06 PM CSTBody Mass Index24.41109/12/2024 4:06 PM RN CASE MANAGER Plan of Treatment DateTypeDepartmentCare Team (Latest Contact Info)Ghmunyrjoog31/26/2026 3:50 PM CSTOffice Visit [facility] [address] [place], [place] [id number] [place] [address] [place] [address] 11/18/2025Procedure Only [facility] [address] [facility] [address] [place] [address] Health MaintenanceDue DateLast DoneCommentsCOVID-19 vaccine series ( season), 12/11/2024, 06/07/2024, Additional history exists Depression screening for age 12+, 06/17/2024, 06/10/2024, Additional history existsMedicare Wellness for age 65+, 06/06/2024, 06/06/2023, Additional history existsBMI (ht and wt on same day) for age 18+, 06/25/2025, 03/02/2025, Additional history exists Tetanus rxjsdeq67/07/688662/03/2023, 05/10/2012Hepatitis C screening for age 18-86Odohcqavj02/09/2015Pneumococcal series for age 50+Pneyfhicx24/30/2018, 01/08/2017, 05/10/2012, Additional history existsZoster (shingles) series for age 50+Kenndkaxu16/24/2019, 05/25/2018RSV vaccine for adults or Bpfzqhhde56/21/2023DEXA/DXA scan for age 65+Vefatajmx70/14/2024, 12/07/2020, 05/21/2018, Additional history existsInfluenza HdvfrfsGapoeomjk91/23/2025, 06/07/2024, 04/09/2023, Additional history existsHepatitis B series for 19+Aged OutNo longer eligible based on patient's age to complete this topic Procedures Procedure NamePriorityDate/TimeAssociated DiagnosisCommentsACUPUNCTURE PLAN OF RXNHTxgmbwh07/24/2025 2:20 PM RN CASE MANAGER Other low back pain AMB EPIDURAL STEROID QYJJGIWMSJprgzkp08/21/2025 12:00 AM RN CASE MANAGER Chronic bilateral low back pain with left-sided sciatica ACUPUNCTURE PLAN OF MCLJWrrwrxk73/14/2025 1:55 PM RN CASE MANAGER Other low back pain ACUPUNCTURE PLAN OF BUDFRaeetth19/14/2025 10:11 AM RN CASE MANAGER Other low back pain SCAN-ELECTROCARDIOGRAM EKG109/12/2024 12:00 AM CSTHEMOGLOBIN L9DJqrordr08/23/2025 4:30 PM CDT Abnormal glucose BASIC METABOLIC KBMAZJgbkuvv90/23/2025 4:30 PM CDT Essential hypertension Stage 3a chronic kidney disease (HC) XR DXA BONE DENSITY 2 SITES AXIAL AND 1 SITE FTRKTMQTQESeafywk23/14/2024 3:44 PM CDT Osteopenia of multiple sites ANTI CKDYemykkm02/09/2015 9:13 AM CDT Need for hepatitis C screening test from Last 3 Months or Most Recently Relevant to Health Maintenance Results * AMB EPIDURAL STEROID INJECTION (07/24/2025 12:00 AM RN CASE MANAGER) Narrative Authorizing ProviderResult TypeResult StatusMarv No MDNEUROLOGY ORD Final Result * SCAN-ELECTROCARDIOGRAM EKG (07/13/2025 12:00 AM RN CASE MANAGER) Narrative Authorizing ProviderResult TypeResult StatusScannerOTHERFinal Result * (ABNORMAL) HEMOGLOBIN A1C (06/25/2025 4:30 PM CDT)ComponentValueRef RangeTest MethodAnalysis TimePerformed AtPathologist SignatureHEMOGLOBIN A1C5.7(H)<5.7 % 06/26/2025 2:54 AM CDTQUEST DIAGNOSTICSComment: For someone without known diabetes, a hemoglobin [...] A1c for diagnosis of diabetes for children. Specimen (Source)Anatomical Location / LateralityCollection Method / Volume Collection TimeReceived TimeBloodBLOOD SPECIMEN / UnknownQuest Collect / Unknown 06/25/2025 4:30 PM CDT1 4:31 PM CDT Narrative Authorizing ProviderResult TypeResult StatusCarlinevipin Joseph Gbae DOCHEMISTRYFinal ResultPerforming OrganizationAddressCity/State/ZIP CodePhone Number [facility] [place] [phone], * (ABNORMAL) BASIC METABOLIC PANEL (06/25/2025 4:30 PM CDT)ComponentValueRef RangeTest MethodAnalysis TimePerformed AtPathologist NfryjmhslFGBZYX059822 - 146 mmol/L1 5:04 AM CDTQUEST DIAGNOSTICSPOTASSIUM4.33.5 - 5.3 mmol/L 06/26/2025 5:04 AM CDTQUEST DIAGNOSTICSCARBON TFNUDNC5121 - 32 mmol/L 06/26/2025 5:04 AM CDTQUEST VOHIODGLYQESQOOERM5671 - 99 mg/dL06/26/2025 5:04 AM CDTQUEST DIAGNOSTICSComment: ? Fasting reference interval CALCIUM9.68.6 - 10.4 mg/dL06/26/2025 5:04 AM CDTQUEST DIAGNOSTICSCREATININE0.99 0.60 - 1.00 mg/dL06/26/2025 5:04 AM CDTQUEST DIAGNOSTICSBUN/CREATININE RATIOSEE NOTE:6 - 22 (calc)06/26/2025 5:04 AM CDTQUEST DIAGNOSTICSComment: ?? Not Reported: BUN and Creatinine are within ?? reference range. ? EGFR59(L)> OR = 60 mL/min/1.00q38706/26/2025 5:04 AM CDTQUEST DIAGNOSTICSUREA NITROGEN (BUN)187 - 25 mg/dL06/26/2025 5:04 AM CDTQUEST DIAGNOSTICSELECTROLYTE TLQWZMA127 - 17 mmol/L (calc)06/26/2025 5:04 AM CDTQUEST WHQDIERIWOQYFLQTBYJ5308 - 110 mmol/L1 5:04 AM CDTQUEST DIAGNOSTICSSpecimen (Source)Anatomical Location / LateralityCollection Method / VolumeCollection TimeReceived TimeBlood BLOOD SPECIMEN / UnknownQuest Collect / Zvxiaez8006/25/2025 4:30 PM CDT1 4:31 PM CDT Narrative Authorizing ProviderResult TypeResult StatusSherri Opal Bernal DOCHEMISTRYFinal ResultPerforming OrganizationAddressCity/State/ZIP CodePhone Number [facility] [place] [phone], * (ABNORMAL) XR DXA BONE DENSITY 2 SITES AXIAL AND 1 SITE PERIPHERAL (06/16/2024 3:44 PM CDT)Anatomical RegionLateralityModalityLUMBAR SPINEOtherSpecimen (Source)Anatomical Location / LateralityCollection Method / VolumeCollection TimeReceived Time Impressions 06/25/2024 4:12 PM CDT Osteopenia. RECOMMENDATIONS: [...] to assess therapeutic efficacy. Delmy Madrigal PA-C [facility] 06/25/2024 Narrative 06/25/2024 4:12 PM CDT For Patients: Results are automatically released to your [facility] ([employer]) account once available, in compliance with federal regulations. This means that you may see your results before your provider has had a chance to review them. Please allow 2-3 business days for your provider to comment on the results. XR DXA Bone Mineral Density (BMD) EXAM LOCATION: [address] [address] PATIENT NAME: Rosalia Allen DATE OF : 1950 EXAM DATE: 06/16/2024 REQUESTING PROVIDER: Yessi Bernal DO GENDER AT : female HEIGHT: 5' 2.09 (06/10/2024) WEIGHT: ??125 lb (06/10/2024) MENOPAUSAL STATUS: Postmenopausal RACE/ETHNICITY: White RISK FACTORS: Family History of Hip Fracture (parental), Smoking (prior), Weight < 127 lbs., and White Race CURRENT MEDICATION FOR BONE LOSS: NONE INDICATION: Follow-up of existing osteopenia COMPARISON DATE(S): ?? DXA scans are compared to prior studies for a patient only when the two (or more) studies were performed on the same scanner. It is not possible to compare data generated on one scanner to data from another because there are not standards in DXA equipment. This applies even if the two scanners are made by the same manager adult. PROCEDURE: Dual-energy x-ray absorptiometry performed with routine technique. Reporting is completed in the form of a T-score. The T-score represents the standard deviation from peak bone mass based on young healthy adult. A Z-score is used for diagnosis in premenopausal women, and for men under the age of 50. FINDINGS: RESULT LUMBAR SPINE L2 - L4 ??(EXCLUDE L1) ??BMD: 1.365 g/cm2 T-Score: + 1.2 Z-Score: + 3.2 Change from prior in 2018: ??Increase 4.4%. RESULTS FEMUR Left femoral neck BMD: 0.837 g/cm2 T-Score: - 1.4 Z-Score: + 0.7 Change from prior in 2020: ??Decrease 4.3%. Right femoral neck BMD: 0.732 g/cm2 T-Score: - 2.2 Z-Score: - 0.1 Change from prior in 2020: ??Decrease 8.7%. Left hip BMD: 0.890 g/cm2 T-Score: - 0.9 Z-Score: + 1.0 Change from prior in 2020: ??Decrease 5.0%. Right hip BMD: 0.852 g/cm2 T-Score: - 1.2 Z-Score: + 0.7 Change from prior in 2020: ??Decrease 3.8%. RESULT FOREARM Left Forearm distal radius BMD: 0.527 g/cm2 T-Score: - 2.4 Z-Score: - 0.1 Change from prior: ??None WHO criteria: Normal: T-score at or above -1 SD Osteopenia: T-score between -1.1 and -2.4 SD Osteoporosis: T-score at or below -2.5 SD FRAX RISK CALCULATION (USED FOR OSTEOPENIA ONLY): 10-year probability of major osteoporotic fracture: 26.2%. 10-year probability of hip fracture: 16.6%. Authorizing ProviderResult TypeResult StatusSherri [facility] DODEXAFinal Result * ANTI HCV [[id number]] (05/12/2015 9:13 AM CDT)ComponentValueRef RangeTest Method Analysis TimePerformed AtPathologist SignatureHEPATITIS C ANTIBODYNon-Reactive Non-Reactive 05/12/2015 4:48 PM CDTALCAREPARTN[facility]ITALCENTRAL LABORATORYSpecimen (Source)Anatomical Location / LateralityCollection Method / VolumeCollection TimeReceived TimeBlood specimen (specimen)BLOOD SPECIMEN / UnknownVenipuncture / [id number]/12/2015 9:13 AM CDT05/12/2015 9:14 AM CDT [facility] - 05/12/2015 4:48 PM CDT Antibodies to HCV not detected; does not exclude the possibility of exposure to HCV. Authorizing ProviderResult TypeResult StatusRoxana Kamille Hoang MDSEND OUTSFinal ResultPerforming OrganizationAddressCity/State/ZIP CodePhone Number [facility] 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 Do not delete or resolve the Infection Flag. / Insurance Advance Directives TypeDate RecordedPatient RepresentativeExplanationPOLST02/06/2024Healthcare Directive/08/2023 * DNR (Latest Code Status on File) Date ActivatedDate InactivatedComments09/08/2024 4:01 PM09/11/2024 4:58 PMQuestion AnswerCommentsCode Status Discussion:* Reviewed Preferences * DNR Date ActivatedDate NzvuqgdmknsXwyjzzck62/19/2024 4:15 PM08/28/2024 5:02 PM QuestionAnswerCommentsCode Status Discussion:* Reviewed Preferences * DNR Date ActivatedDate ZmbimegttgfFbtmuxws11/18/2024 8:29 PM08/21/2024 4:15 PM QuestionAnswerCommentsCode Status Discussion:* Unable to Assess Preferences, Provider to review later * DNR Date ActivatedDate InactivatedComments02/07/2024 12:27 PM02/11/2024 4:31 PMPer HCD from 2022, confirmed with patient on 02/07/24.QuestionAnswerCommentsCode Status Discussion:* Reviewed Preferences * Full Code Date ActivatedDate InactivatedComments01/30/2024 9:35 PM02/01/2024 4:44 PMQuestion AnswerCommentsCode Status Discussion:* Reviewed Preferences Care Teams Team MemberRelationshipSpecialtyStart [place] [address] [place] [address] PCP - GeneralFamily Xxrtnpeh50/23/25 Cary Kinsey MD Consulting PhysicianCardiovascular Disease09/17/23 [facility], [facility] [address] [place], [place] [id number] 09/11/24 Bhargavi Villatoro MD [address] [place] [address] [place], [place] [id number] Cardiovascular Znfvqrr33/16/25
[2025-08-19 14:43] VITALS: BP 118/71; PULSE 70; RESP 22; TEMP 36.5; O2SAT 90; BMI 22.7
--- NOTE | 2025-08-19 15:08 | ED.GENADULT ---
HPI - General Adult General Chief complaint: Back Injury/Pain Stated complaint: back pain Time Seen by Provider: 08/19/25 14:48 Source: patient and family Mode of arrival: wheelchair Limitations: no limitations History of Present Illness HPI narrative: 75-year-old female with history of chronic back pain comes in today with an exacerbation of her chronic pain. She has had multiple injections, she has narcotic pain medications at home-on of these things are helping. She has also used gabapentin and duloxetine. Patient does have a follow-up appointment coming up to investigate the possibility of radiofrequency ablation. She states that periodically she will get an exacerbation that she cannot control. This is not new, there is nothing about the pain that she is currently having that she has not had before. She denies any fevers, no swelling. She denies any saddle anesthesia. Patient denies any loss of bowel or bladder function. It appears that she came in 1 time in June and 1 time in July for exacerbations. Related Data Home Medications ?Medication ?Instructions ?Recorded ?Confirmed atorvastatin 40 mg tablet 40 mg PO DAILY 01/17/23 07/14/25 albuterol sulfate 90 mcg/actuation inhalation 02/23/23 aerosol inhaler famotidine 20 mg tablet 20 mg PO Q12H 02/23/23 07/14/25 gabapentin 600 mg tablet 600 mg PO 3XD 02/23/23 07/14/25 hydrocodone 5 mg-acetaminophen 325 1 tab PO DAILY PRN 02/23/23 07/14/25 mg tablet trazodone 50 mg tablet 50 mg PO QPM 02/23/23 07/14/25 amlodipine 2.5 mg tablet 2.5 mg PO DAILY 12/28/24 07/14/25 apixaban 5 mg tablet (Eliquis) 5 mg PO BID 12/28/24 07/14/25 hydrocortisone 1 % topical cream applic topical 12/28/24 ipratropium 0.5 mg-albuterol 3 mg ml inhalation 12/28/24 (2.5 mg base)/3 mL nebulization soln lisinopril 10 mg tablet 10 mg PO DAILY 12/28/24 07/14/25 sotalol 80 mg tablet mg PO DAILY 12/28/24 umeclidinium 62.5 mcg-vilanterol 1 ea inhalation DAILY 12/28/24 07/14/25 25 mcg/actuation powdr for inhalation (Anoro Ellipta) Allergies Allergy/AdvReac Type Severity Reaction Status Date / Time No Known Drug Allergies Allergy Verified 07/24/25 13:21 Review of Systems Status of ROS: Reports: 6 or more systems reviewed and unremarkable except as noted in History and below [facility] Social History Smoking Status: Former smoker What tobacco products do you use: cigarettes Smoking quit date/years: <= 15 years ago Do you use any of these nicotine containing products: None How often do you have a drink containing alcohol: never AUDIT-C Alcohol total score: 0 Non-prescribed substance use: denies use Exam Narrative: Exam Narrative: Well-nourished well-developed patient, lying in bed and writhing in pain and yelling in distress. Alert and oriented x3. Answers questions appropriately. HEENT: Normocephalic atraumatic. Pupils are equally round reactive to light. Extraocular muscles are intact. Conjunctivae are moist without any icterus noted. Moist mucous membranes. Nasal cannula in place-patient on chronic oxygen therapy. Moves all extremities. Can elevate both legs from the bed. Normal respiratory effort-able to complete full sentences without needing to catch her breath. No swelling or erythema of the back. Const: Vital Signs, click to edit/add: Vital Signs - 24 hr 08/19/25 14:43 Temperature 97.7 F Pulse Rate [Pulse Oximeter] 70 Respiratory Rate 22 Blood Pressure [Ri ght Upper Arm] 118/71 Pulse Oximetry 90 Oxygen Delivery Me thod Nasal Cannula Oxygen Flow Rate 3 Course Course ED Course: Reviewed patient's records the last time she was here she received IM morphine, oral oxycodone, oral Flexeril and oral acetaminophen. We will repeat this cocktail today. This provided the patient significant relief. Vital Signs Vital signs: Initial Vital Signs Temperature 97.7 F 08/19/25 14:43 Temperature Source Temporal Artery Scan 08/19/25 14:43 Pulse Rate 70 08/19/25 14:43 Respiratory Rate 22 08/19/25 14:43 Blood Pressure 118/71 08/19/25 14:43 Blood Pressure Mean 86 08/19/25 14:43 Blood Pressure Position Sitting 08/19/25 14:43 Pulse Oximetry 90 08/19/25 14:43 Oxygen Delivery Method Nasal Cannula 08/19/25 14:43 Oxygen Flow Rate 3 08/19/25 14:43 Vital Signs Temperature 97.7 F 08/19/25 14:43 Pulse Rate 70 08/19/25 14:43 Respiratory Rate 22 08/19/25 14:43 Blood Pressure 118/71 08/19/25 14:43 Pulse Oximetry 90 08/19/25 14:43 Oxygen Delivery Method Nasal Cannula 08/19/25 14:43 Oxygen Flow Rate 3 08/19/25 14:43 Temperature 97.7 F 08/19/25 14:43 Pulse Rate 70 08/19/25 14:43 Respiratory Rate 22 08/19/25 14:43 Blood Pressure 118/71 08/19/25 14:43 Pulse Oximetry 90 08/19/25 14:43 Oxygen Delivery Method Nasal Cannula 08/19/25 14:43 Oxygen Flow Rate 3 08/19/25 14:43 Medications Administered Medications: Discontinued Medications Generic Name Dose Route Start Last Admin Trade Name Freq PRN Reason Stop Dose Admin Acetaminophen 1,000 mg 08/19/25 15:06 08/19/25 15:20 Acetaminophen 500 Mg Tablet PO 08/19/25 15:07 1,000 mg ONCE ONE Administration Cyclobenzaprine HCl 10 mg 08/19/25 15:06 08/19/25 15:20 Cyclobenzaprine Hcl 10 Mg Tablet PO 08/19/25 15:07 10 mg ONCE ONE Administration Morphine Sulfate 10 mg 08/19/25 15:06 08/19/25 15:22 Morphine 10 Mg/Ml Inj IM 08/19/25 15:07 10 mg ONCE ONE Administration Oxycodone HCl 5 mg 08/19/25 15:06 08/19/25 15:21 Oxycodone 5 Mg Tablet PO 08/19/25 15:07 5 mg ONCE ONE Administration Medical Decision Making MDM Narrative Medical decision making narrative: 75-year-old female with acute on chronic back pain. Treated per above. Will follow up with her team as scheduled. Discharge Plan Discharge Clinical Impression: Chronic back pain Patient Disposition: Home, Self-Care Condition: Stable Additional Instructions: Follow-up with your team as scheduled. Prescriptions: No Action famotidine 20 mg tablet 20 mg PO Q12H albuterol sulfate 90 mcg/actuation HFA aerosol inhaler inhalation gabapentin 600 mg tablet 600 mg PO 3XD trazodone 50 mg tablet 50 mg PO QPM hydrocodone-acetaminophen 5-325 mg tablet 1 tab PO DAILY PRN ipratropium-albuterol 0.5 mg-3 mg(2.5 mg base)/3 mL solution for nebulization INHALATION Patient Comments: [NO ORIGINAL SIG] sotalol 80 mg tablet PO DAILY amlodipine 2.5 mg tablet 2.5 mg PO DAILY hydrocortisone 1 % cream topical lisinopril 10 mg tablet 10 mg PO DAILY Eliquis 5 mg tablet 5 mg PO BID umeclidinium-vilanterol [Anoro Ellipta] 62.5-25 mcg/actuation blister with device 1 ea inhalation DAILY atorvastatin 40 mg tablet 40 mg PO DAILY Follow Up/Referrals: Joseph Yan MD [Referring, Neurosurgery] Stand Alone Forms: [facility] Info Instructions
[2025-08-19] MEDS: CYCLOBENZAPRINE HCL 10 MG TABLET PO (15:20)
[2025-08-19] MEDS: ACETAMINOPHEN 500 MG TABLET 1000 MG PO (15:20)
[2025-08-19 16:19] VITALS: BP 126/86; PULSE 61; RESP 18; O2SAT 87
== END 2025-08-19 16:30 | disposition home or self-care (01) ==
PROVIDERS: Emergency Provider Family Medicine
DX: M54.50 Low back pain, unspecified (principal); G89.29 Other chronic pain
CPT/HCPCS: 96372; 99284; A9270; J2270